=== PATIENT | female | born 1950 | race Caucasian/White ===

== ENCOUNTER 2016-05-31 18:48 | Inpatient (IN) | payer MEDICARE, OTHER ==
[~2016-05-31] VITALS: Ht 165.1 cm; Wt 114.9 kg
[2016-05-31] VITALS (7 sets, daily range): BP systolic 78–176; BP diastolic 47–80
[~2016-05-31 18:48] MED LIST: ALBU2.5V14 NEB; ALBU8.5H6 IH; ALEN70TA5 PO; ALPR0.5T10 PO; ALPR0.5T6 PO; AMLO5TAB2 PO; ASPI81TA2 PO; ATOR20TA58 PO; AZAT50TA PO; BIMA2.5D EACHEYE; CALC200T3 PO; CALC600T4 PO; CETI10CA PO; CETI10TA16 PO; CHOL10007 PO; CITA10TA8 PO; DOCU100C5 PO; DOCU100T5 PO; ERGO500012 PO; ESOM40CA PO; Enoxaparin Sodium SQ; FLUT100P MC; FLUT16SP NS; FLUT1DIS3 IH; GABA-586 PO; HYDR-2762 PO; IPRA0.2S5 IH; LEVO100T5 PO; LEVO125T5 PO; LEVO500T38 PO; MELA10TA2 PO; MELA3TAB PO; MONT10TA6 PO; MULT1CAP15 PO; OXYC10TA PO; OXYC10TA32 PO; PRED-220 PO; PRED5TAB19 PO; RANI300T PO; ROFL500T PO; ROPI0.5T2 PO; ROPI1TAB2 PO; VENTOLIN HFA18 GM IH
[2016-05-31] MEDS ORDERED: IPRATRPIUM/ALBUTEROL 0.5/2.5MG 3 ML NEBU. ONE (19:04)
[2016-05-31] MEDS ORDERED: DIPHENHYDRAMINE 50 MG/ML VIAL. IVP PRN (19:15)
[2016-05-31] MEDS ORDERED: FENTANYL PF 100 MCG/2 ML VIAL. IV PRN (19:15)
[2016-05-31] MEDS ORDERED: PIP/TAZO PER PHARMACY MC PRN (19:15)
[2016-05-31] MEDS ORDERED: DEXTROSE 50% 25 GM / 50ML DISP.SYRIN. IV PRN (19:15)
[2016-05-31 19:16] LABS: BASO % 0 % (0-3); EOS % 0 % (0-3); HEMATOCRIT 44.4 % (36.0-47.0); LYMPH # 0.3 x10^3/uL (1.0-4.8); LYMPH % 2 % (24-48); MEAN CORPUSCULAR HEMOGLOBIN 31 pg (25-35); MEAN CORPUSCULAR HGB CONC 31 g/dL (31-37); MEAN CORPUSCULAR VOLUME 99 fL (79-100); MONO % 2 % (0-9); NEUT % 96 % (31-73); PLATELET COUNT 260 x10^3/uL (140-400); RED BLOOD COUNT 4.48 x10^6/uL (3.50-5.40); RED CELL DISTRIBUTION WIDTH 14.7 % (11.5-14.5); WHITE BLOOD COUNT 18.1 x10^3/uL (4.0-11.0)
[2016-05-31 19:20] LABS: BILIRUBIN,URINE NEGATIVE (NEG); GLUCOSE,URINE 100 mg/dL (NEG); NITRITE,URINE NEGATIVE (NEG); PROTEIN,URINE >=300 mg/dL (NEG-TRACE); UROBILINOGEN,URINE 0.2 mg/dL (0.2 mg/dL)
[2016-05-31] MEDS ORDERED: PROPOFOL 50 ML IV ONE (19:28)
[2016-05-31] MEDS ORDERED: methylPREDNISolone SOD SUCC PF 125 MG/2 ML VIAL. IV ONE (19:30)
[2016-05-31] MEDS ORDERED: IPRATRPIUM/ALBUTEROL 0.5/2.5MG 3 ML NEBU. NEB ONE (19:30)
[2016-05-31] MEDS ORDERED: SUCCINYLCHOLINE 200 MG/10 ML VIAL. IV ONE (19:30)
[2016-05-31] MEDS ORDERED: ETOMIDATE 20 MG/10 ML VIAL. IV ONE (19:30)
[2016-05-31] MEDS: PROPOFOL 100 ML IV PRN ×2 (19:30→22:57)
[2016-05-31 19:32] LABS: BACTERIA,URINE FEW /HPF (0-FEW); SQUAMOUS EPITHELIAL CELL,UR MOD /LPF; WBC,URINE 0 /HPF (0-4)
[2016-05-31 19:34] LABS: CALCIUM 8.7 mg/dL (8.5-10.1); CREATININE 0.7 mg/dL (0.6-1.0); GFR 84.5; POTASSIUM 4.5 mmol/L (3.5-5.1)
[2016-05-31] MEDS: PIPERACILLIN/TAZOBACTAM 4.5 GM in IV NORMAL SALINE 100ML 100 ML IV SCH (19:42)
[2016-05-31 19:45] LABS: ALBUMIN 3.7 g/dL (3.4-5.0); ALBUMIN/GLOBULIN RATIO 0.8 (1.0-1.7); TOTAL BILIRUBIN 0.7 mg/dL (0.2-1.0); TOTAL PROTEIN 8.6 g/dL (6.4-8.2)
[2016-05-31 19:45] LABS: BARBITURATES NEG (NEG); BENZODIAZEPINES POS (NEG); CANNABINOIDS NEG (NEG); COCAINE NEG (NEG); ETHANOL, URINE NEG (NEG); METHADONE NEG (NEG); OPIATES POS (NEG); PHENCYCLIDINE NEG (NEG)
[2016-05-31 19:49] LABS: PLT ESTIMATE ADEQUATE (ADEQUATE)
[2016-05-31] MEDS ORDERED: DOCUSATE SODIUM 100 MG CAPSULE. PO PRN (20:00)
--- NOTE | 2016-05-31 20:16 | PHYS DOC ---
Past Medical History Past Medical History: Arthritis, COPD, Diabetes-Type II, Hypertension, Other Additional Past Medical Histor: PULMONARY FIBROSIS, morbidly obese Past Surgical History: Appendectomy, Cervical Fusion, Cholecystectomy, Hip Replacement, Hysterectomy, Tonsillectomy, Other Additional Past Surgical Histo: LUNG BIOPSY Alcohol Use: None Drug Use: None Adult General Chief Complaint Chief Complaint: DYSPNEA/RESPIRATOY DISTRESS HPI HPI 65-year-old female with history of end-stage COPD presents with respiratory distress. Apparently patient's home CPAP is not been working. Patient became altered and was struggling to breathe at home so EMS was called. On EMS arrival her oxygen saturations were in the 60s. There is been no report of fever chills or sweats. She has had a cough that is been nonproductive. [] Review of Systems Review of Systems Review of systems is unobtainable secondary to critical illness Current Medications Current Medications Current Medications Medications (Trade) Dose Ordered Sig/Al Start Time Stop Time Status Last Admin Dose Admin Albuterol/ Ipratropium (Duoneb) 3 ml STK-MED ONCE 05/31/16 19:04 05/31/16 19:05 DC Dextrose (Dextrose 50%-Water Syringe) 12.5 gm PRN Q15MIN PRN 05/31/16 19:15 Diphenhydramine HCl (Benadryl) 25 mg PRN Q15MIN PRN 05/31/16 19:15 Fentanyl Citrate (Fentanyl 2ml Vial) 50 mcg PRN Q1HR PRN 05/31/16 19:15 Lorazepam 1 mg 1 mg PRN Q1HR PRN 05/31/16 19:15 Piperacillin Sod/ Tazobactam Sod (Zosyn Per Pharmacy) 1 each PRN DAILY PRN 05/31/16 19:15 Propofol (Diprivan) 100 ml @ 0 mls/hr CONT PRN 05/31/16 19:15 Allergies Allergies Allergies Coded Allergies Type Severity Reaction Last Updated Verified No Known Drug Allergies 03/15/15 No Physical Exam Physical Exam Constitutional: Well developed, well nourished, acutely ill in severe respiratory distress. [] HENT: Normocephalic, atraumatic, bilateral external ears normal, oropharynx moist, no oral exudates, nose normal. [] Eyes: PERRLA, EOMI, conjunctiva normal, no discharge. [] Neck: Normal range of motion, no tenderness, supple, no stridor. [] Cardiovascular:Heart rate regular rhythm, no murmur [] Lungs & Thorax: Poor breath sounds bilaterally sats 83% on nonrebreather [] Abdomen: Bowel sounds normal, soft, no tenderness, no masses, no pulsatile masses. [] Skin: Warm, dry, no erythema, no rash. [] Back: No tenderness, no CVA tenderness. [] Extremities: No tenderness, no cyanosis, no clubbing, ROM intact, no edema. [] Neurologic: Obtunded. [] Psychologic: Unable to assess. [] Current Patient Data Vital Signs Vital Signs Date Time Temp Pulse Resp B/P Pulse Ox O2 Delivery O2 Flow Rate FiO2 05/31/16 19:03 98.8 97 16 154/83 98 Ventilator 98.8 Lab Values Laboratory Tests Test 05/31/16 18:50 05/31/16 19:10 White Blood Count 18.1x10^3/uL (4.0-11.0) H Red Blood Count 4.48x10^6/uL (3.50-5.40) Hemoglobin 14.0g/dL (12.0-15.5) Hematocrit 44.4% (36.0-47.0) Mean Corpuscular Volume 99fL (79-100) Mean Corpuscular Hemoglobin 31pg (25-35) Mean Corpuscular Hemoglobin Concent 31g/dL (31-37) Red Cell Distribution Width 14.7% (11.5-14.5) H Platelet Count 260x10^3/uL (140-400) Neutrophils (%) (Auto) 96% (31-73) H Lymphocytes (%) (Auto) 2% (24-48) L Monocytes (%) (Auto) 2% (0-9) Eosinophils (%) (Auto) 0% (0-3) Basophils (%) (Auto) 0% (0-3) Neutrophils # (Auto) 17.3x10^3uL (1.8-7.7) H Lymphocytes # (Auto) 0.3x10^3/uL (1.0-4.8) L Monocytes # (Auto) 0.4x10^3/uL (0.0-1.1) Eosinophils # (Auto) 0.0x10^3/uL (0.0-0.7) Basophils # (Auto) 0.0x10^3/uL (0.0-0.2) Segmented Neutrophils % 89% (35-66) H Band Neutrophils % 2% (0-9) Lymphocytes % 3% (24-48) L Atypical Lymphocytes % (Manual) 1% (0-0) H Monocytes % 5% (0-10) Platelet Estimate Adequate (ADEQUATE) Sodium Level 141mmol/L (136-145) Potassium Level 4.5mmol/L (3.5-5.1) Chloride Level 99mmol/L (98-107) Carbon Dioxide Level 38mmol/L (21-32) H Anion Gap 4 (6-14) L Blood Urea Nitrogen 17mg/dL (7-20) Creatinine 0.7mg/dL (0.6-1.0) Estimated GFR (Cockcroft-Gault) 84.5 BUN/Creatinine Ratio 24 (6-20) H Glucose Level 168mg/dL (70-99) H Lactic Acid Level 1.4mmol/L (0.4-2.0) Calcium Level 8.7mg/dL (8.5-10.1) Total Bilirubin 0.7mg/dL (0.2-1.0) Aspartate Amino Transferase (AST) 21U/L (15-37) Alanine Aminotransferase (ALT) 11U/L (14-59) L Alkaline Phosphatase 99U/L (46-116) Troponin I Quantitative < 0.017ng/mL (0.000-0.055) UJ-Ayy-E-Type Natriuretic Peptide 204pg/mL (0-124) H Total Protein 8.6g/dL (6.4-8.2) H Albumin 3.7g/dL (3.4-5.0) Albumin/Globulin Ratio 0.8 (1.0-1.7) L Urine Collection Type Unknown Urine Color Yellow Urine Clarity Cloudy Urine pH 6.0 Urine Specific [place] 1.025 Urine Protein >=300mg/dL (NEG-TRACE) Urine Glucose (UA) 100mg/dL (NEG) Urine Ketones (Stick) Negativemg/dL (NEG) Urine Blood Large (NEG) Urine Nitrite Negative (NEG) Urine Bilirubin Negative (NEG) Urine Urobilinogen Dipstick 0.2mg/dL (0.2 mg/dL) Urine Leukocyte Esterase Negative (NEG) Urine RBC 6-10/HPF (0-2) Urine WBC 0/HPF (0-4) Urine Squamous Epithelial Cells Mod/LPF Urine Bacteria Few/HPF (0-FEW) Urine Hyaline Casts Few/HPF Urine Mucus Mod/LPF Urine Opiates Screen Pos (NEG) Urine Methadone Screen Neg (NEG) Urine Barbiturates Neg (NEG) Urine Phencyclidine Screen Neg (NEG) Urine Amphetamine/Methamphetamine Neg (NEG) Urine Benzodiazepines Screen Pos (NEG) Urine Cocaine Screen Neg (NEG) Urine Cannabinoids Screen Neg (NEG) Urine Ethyl Alcohol Neg (NEG) Laboratory Tests 05/31/16 18:50 Laboratory Tests 05/31/16 18:50 EKG EKG [EKG: Normal sinus rhythm poor limb lead voltage no obvious ST changes consistent with ischemia rate of 90] Radiology/Procedures Radiology/Procedures [] Impressions: Chest x-ray: Slightly rotated ET tube is above the lelia no obvious infiltrates as interpreted by me Course & Med Decision Making Course & Med Decision Making Pertinent Labs and Imaging studies reviewed. (See chart for details) [Procedure: Rapid sequence intubation Consent: Obtained from her Patient was given 20 mg of etomidate followed by 100 mg of succinyl choline with excellent sedation. Then using a 4 Christiano blade the vocal cords were directly visualized and a 7.5 ET tube was passed to 23 cm at the lips without difficulty. Balloon was inflated stylette was removed and there was good color change with the CO2 detector. Patient tolerated the procedure well placed on the ventilator. CRITICAL CARE time was 30 minutes - time exclusive of any procedures performed. Care included medical management, x-ray/lab interpretation, discussions with the patient and their family as well as appropriate medical consultants.] Dragon Disclaimer Dragon Disclaimer This electronic medical record was generated, in whole or in part, using a voice recognition dictation system. Departure Departure Impression: Primary Impression: Acute and chronic respiratory failure ([id number]) Disposition: 09 ADMITTED INPATIENT Admitting Physician: Bibi Andre Condition: GUARDED Referrals: PAWAN LOWERY MD (PCP) Problem Qualifiers Primary Impression: Acute and chronic respiratory failure ([id number]) Respiratory failure complication: hypoxia and hypercapnia Qualified Code: J96.21 - Acute and chronic respiratory failure with hypoxia GARRY BROWN DO May 31, 2016 20:16
[2016-05-31] MEDS ORDERED: IV NORMAL SALINE 1000ML BAG 1,000 ML IV SCH ×2 (21:00→21:30)
--- NOTE | 2016-05-31 21:04 | ACF ---
Admission Forms Criteria RESPIRATORY FAILURE [facility] Clinical Indications for Admission to Inpatient Care (Place 'X' for any and all applicable criteria): Hospital admission is needed for appropriate care of the patient because of acute respiratory failure or insufficiency as indicated by ANY ONE of the following(1)(2)(3)(4)(5)(6)(7)(8): [X]I. Mechanical ventilation needed (acute invasive or noninvasive) [ ]II. Severe ventilation deficit as indicated by ANY ONE of the following (9) [ ]a) Respiratory acidosis (pH less than 7.32 and partial pressure of carbon dioxide greater than 40 mm Hg (5.3 kPa)) [ ]b) Partial pressure of carbon dioxide greater than 44 mm Hg (5.9 kPa ) (new) [ ]c) Airflow measurements less than 25% of predicted (eg, peak expiratory flow rate less than 100 L/minute) [ ]d) Forced vital capacity less than 15 mL/kg of ideal body weight, or 50% decrease in vital capacity from baseline [ ]III. Noncardiac pulmonary edema not resolving with rapid emergency treatment (8) [ ]IV. Severe respiratory distress as indicated by ANY ONE of the following: [ ]a) Severe tachypnea (respiratory rate greater than 30, greater than 45 for 6-month-old, greater than 60 for ) [ ]b) Severe hypoxemia (partial pressure of oxygen less than 50 mm Hg ( 6.7 kPa) on greater than 50% oxygen or partial pressure of oxygen to FIO2 ratio less than 200) [ ]c) Mental status deterioration from respiratory disease [ ]V. Airway obstruction or inadequate protection [A](10)(11) The original [employer] content created by [employer] has been revised. The portions of the content which have been revised are identified through the use of italic text or in bold, and [employer] has neither reviewed nor approved the modified material. All other unmodified content is copyright [employer]. Please see references footnoted in the original [employer] edition 2016 Admission Criteria Met?: Yes ELLIE PÉREZ May 31, 2016 21:04
--- NOTE | 2016-05-31 21:20 | EKG ---
[facility] [address] [place] [address] Test Date: 2016-05-31 Test Time: 21:19:47 Pat Name: MARGAUX CHERRY Department: Room: [facility] Gender: F Delivery Clerk: KIRAN : 1950 Requested By: GARRY BROWN Order Number: [id number] Reading MD: Polo Fan Measurements Intervals [place] Rate: 87 P: 66 CO: 176 QRS: 82 QRSD: 66 T: 83 QT: 334 QTc: 402 Interpretive Statements SINUS RHYTHM POSSIBLE PRIOR KRISTA-SEPTAL INFARCT Electronically Signed On 06-15-2016 14:33:56 CDT by Polo Fan
[2016-05-31] MEDS: IV NORMAL SALINE 1000ML BAG 1,000 ML IV SCH ×2 (21:43→22:56)
[2016-05-31 22:03] LABS: BODY TEMP ABG 99.3 DEG; FIO2 ABG 100; HCO3 ABG 28 mmol/L (21-28); PCO2 ABG 53 mmHg (35-46); PH ABG 7.34 (7.35-7.45); PO2 ABG 370 mmHg (65-108); SAT O2 ABG 100 % (92-99)
[2016-05-31 22:04] LABS: CORRECTED PCO2 ABG 54 mmHg; CORRECTED PH ABG 7.34; CORRECTED PO2 ABG 372 mmHg
[2016-05-31] MEDS: CHLORHEXIDINE 0.12% 15 ML MOUTHWASH. MM SCH (22:11)
[2016-05-31] MEDS: rOPINIRole 1 MG TABLET. PO SCH (22:11)
[2016-05-31] MEDS: ATORVASTATIN CALCIUM 20 MG TABLET PO SCH (22:11)
[2016-05-31] MEDS: FAMOTIDINE 20 MG/2 ML VIAL IVP SCH (22:11)
[2016-05-31] MEDS: FENTANYL PF 100 MCG/2 ML VIAL. IV PRN (22:56)
--- NOTE | 2016-05-31 23:29 | RAD ---
INDICATION: Enteric tube placement COMPARISON: None IMPRESSION: Single frontal view of a portion of the abdomen obtained. There is an enteric tube with tip in left upper quadrant of abdomen in the expected region of the stomach. There is some mildly dilated air-filled loop of small bowel in the right mid abdomen measuring up to 26 millimeters. Electronically signed by: Evens Gruber (May 31, 2016 23:28:05)
[2016-06-01] VITALS (24 sets, daily range): BP systolic 116–185; BP diastolic 67–90
[2016-06-01] MEDS: PIPERACILLIN/TAZOBACTAM 4.5 GM in IV NORMAL SALINE 100ML 100 ML IV SCH ×5 (00:18→23:26)
[2016-06-01] MEDS: IV NORMAL SALINE 1000ML BAG 1,000 ML IV SCH ×4 (00:49→14:11)
[2016-06-01 05:55] LABS: BASO % 0 % (0-3); EOS % 0 % (0-3); HEMOGLOBIN 12.4 g/dL (12.0-15.5); LYMPH # 0.3 x10^3/uL (1.0-4.8); LYMPH % 3 % (24-48); MEAN CORPUSCULAR HEMOGLOBIN 31 pg (25-35); MEAN CORPUSCULAR HGB CONC 33 g/dL (31-37); MEAN CORPUSCULAR VOLUME 96 fL (79-100); MONO % 1 % (0-9); NEUT % 96 % (31-73); PLATELET COUNT 191 x10^3/uL (140-400); RED BLOOD COUNT 3.97 x10^6/uL (3.50-5.40); RED CELL DISTRIBUTION WIDTH 14.1 % (11.5-14.5)
[2016-06-01 06:08] LABS: CREATININE 1.1 mg/dL (0.6-1.0); GFR 50.2; POTASSIUM 4.2 mmol/L (3.5-5.1)
--- NOTE | 2016-06-01 06:14 | EKG ---
[facility] [address] [place] [address] Test Date: 2016-05-31 Test Time: 19:51:04 Pat Name: MARGAUX CHERRY Department: Room: [facility] Gender: F [employer] Operator: : 1950 Requested By: RENU HARDY Order Number: [id number] Reading MD: Polo Fan Measurements Intervals [place] Rate: 89 P: 66 ND: 164 QRS: 86 QRSD: 68 T: 87 QT: 320 QTc: 390 Interpretive Statements SINUS RHYTHM Electronically Signed On 06-15-2016 14:32:49 CDT by Polo Fan
--- NOTE | 2016-06-01 07:22 | RAD ---
Portable chest, 06/10/2016, 8:08 PM: History: Intubation Comparison is made to a study from 02/24/2016. The patient is rotated to the right. An ET tube is in place with its tip located 6 cm above the lelia. The heart size and pulmonary vascularity are normal. The pulmonary markings are mildly prominent compatible with scarring. No acute infiltrate is seen. There is no evidence of pleural fluid or pneumothorax. Postsurgical changes are evident in the lower cervical spine IMPRESSION: 1. Interval insertion of an ET tube in satisfactory position. 2. Mild parenchymal scarring.
[2016-06-01] MEDS: INSULIN ASPART 300 UNITS/3 ML INSULN.PEN SQ SCH ×3 (08:00→16:55)
[2016-06-01] MEDS: AMLODIPINE BESYLATE 5 MG TABLET. PO SCH (08:24)
[2016-06-01] MEDS: FAMOTIDINE 20 MG/2 ML VIAL IVP SCH ×2 (08:24→21:20)
[2016-06-01] MEDS: CHLORHEXIDINE 0.12% 15 ML MOUTHWASH. MM SCH ×2 (08:25→21:20)
[2016-06-01] MEDS: ENOXAPARIN 40 MG/0.4 ML SYRINGE. SQ SCH ×2 (08:25→21:20)
[2016-06-01] MEDS: rOPINIRole 1 MG TABLET. PO SCH ×2 (08:25→21:19)
[2016-06-01] MEDS: ASPIRIN CHEWABLE 81 MG TABLET. PO SCH (08:25)
[2016-06-01] MEDS: ROFLUMILAST 500 MCG TABLET. PO SCH (08:26)
[2016-06-01 08:53] LABS: HCO3 ABG 27 mmol/L (21-28); PCO2 ABG 49 mmHg (35-46); PH ABG 7.36 (7.35-7.45); PO2 ABG 259 mmHg (65-108); SAT O2 ABG 99 % (92-99)
[2016-06-01 08:56] LABS: FIO2 ABG 60
--- NOTE | 2016-06-01 09:04 | RAD ---
Portable chest, 06/01/2016: History: Respiratory failure Comparison is made to yesterday's study. The ET tube has its tip located well above the lelia. An NG tube has been inserted extending into the stomach, although its tip is not visible. The heart size and pulmonary vascularity are normal. No pulmonary infiltrates are seen. There is no evidence of pleural fluid. IMPRESSION: 1. The ET tube and NG tube are in satisfactory positions. 2. No acute cardiopulmonary abnormality is detected.
[2016-06-01] MEDS: LEVOTHYROXINE SODIUM 50 MCG in IV NORMAL SALINE 50ML 5 ML IVP SCH (09:26)
[2016-06-01] MEDS: PROPOFOL 100 ML IV PRN ×3 (09:30→23:27)
[2016-06-01] MEDS ORDERED: FUROSEMIDE 20 MG/2 ML VIAL. IVP ONE (10:00)
--- NOTE | 2016-06-01 10:28 | PDOC2 ---
CONSULT Date of Consult Date of Consult DATE: 06/01/16 TIME: 10:23 Reason for Consult Reason for Consult: LEONID Referring Physician Referring Physician: ANTONY Identification/Chief Complaint Chief Complaint SOB Source Source: Chart review History of Present Illness Reason for Visit: THIS IS A 65 YR OLD ADMITTED WITH SOB. SHE IS NOTED TO HAVE SUDDEN SOB AND IS DX WITH EXACERBATION OF HER COPD. HER CR WAS 0.7 ON ADMIT AND NOW 1.1 AND ANURIA. NO NEPHROTOXINS WERE NOTED. SHE HAS NOT BEEN EATING WELL FOR ABOUT 24 HRS. CXRAY IS NEG FOR ANY WATER IN HER LUNGS. NO CKD NOTED. NO HYPOTENSIVE EPISODES Past Medical History Cardiovascular: CAD, HTN, Hyperlipidemia Pulmonary: COPD GI: GERD Psych: Depression, Panic Rheumatologic: Rheumatoid arthritis Endocrine: Diabetes, Hypothyroidism Past Surgical History Past Surgical History: Appendectomy, Cholecystectomy, Total hip replacement, Hysterectomy, Other Family History Family History: Heart Disease, Hypertension Social History ALCOHOL: none Drugs: None Current Problem List Problem List Problems Medical Problems: (1) Acute and chronic respiratory failure ([id number]) Status: Acute Current Medications Current Medications Current Medications Albuterol/ Ipratropium (Duoneb) 3 ml STK-MED ONCE .ROUTE ; Start 05/31/16 at 19: 04; Stop 05/31/16 at 19:05; Status DC Albuterol/ Ipratropium (Duoneb) 6 ml 1X ONCE NEB Last administered on 19:05; Start 05/31/16 at 19:30; Stop 05/31/16 at 19:31; Status DC Methylprednisolone Sodium Succinate (Solu-Medrol 125mg Vial) 125 mg 1X ONCE IV Last administered on 05/31/16 19:59; Start 05/31/16 at 19:30; Stop 05/31/16 at 19:31; Status DC Piperacillin Sod/ Tazobactam Sod (Zosyn Per Pharmacy) 1 each PRN DAILY PRN MC SEE COMMENTS; Start 05/31/16 at 19:15 Etomidate (Amidate) 20 mg 1X ONCE IV Last administered on 05/31/16 18:57; Start 05/31/16 at 19:30; Stop 05/31/16 at 19:31; Status DC Succinylcholine Chloride 100 mg 100 mg 1X ONCE IV Last administered on 18:57; Start 05/31/16 at 19:30; Stop 05/31/16 at 19:31; Status DC Piperacillin Sod/ Tazobactam Sod/ Sodium Chloride (Zosyn/Iv Sodium Chloride 0.9 % 100ml) 100 ml @ 200 mls/hr Q6HRS IV Last administered on 06/01/16 05:50; Start 05/31/16 at 19:30 Lorazepam 1 mg 1 mg PRN Q1HR PRN IV COMM; Start 05/31/16 at 19:15 Propofol (Diprivan) 100 ml @ 0 mls/hr CONT PRN IV PER PROTOCOL Last administered on 06/01/16 09:30; Start 05/31/16 at 19:15 Fentanyl Citrate (Fentanyl 2ml Vial) 25 mcg PRN Q1HR PRN IV COMM; Start at 19:15 Fentanyl Citrate (Fentanyl 2ml Vial) 50 mcg PRN Q1HR PRN IV COMM Last administered on 05/31/16 22:56; Start 05/31/16 at 19:15 Chlorhexidine Gluconate (Peridex) 15 ml BID MM Last administered on 06/01/16 08:25; Start 05/31/16 at 21:00 Famotidine (Pepcid) 20 mg BID IVP Last administered on 06/01/16 08:24; Start 05/31/16 at 21:00 Diphenhydramine HCl (Benadryl) 25 mg PRN Q15MIN PRN IVP EPS Symptoms; Start 05/31/16 at 19:15 Insulin Aspart (Novolog) 0-7 UNITS TIDWMEALS SQ ; Start 06/01/16 at 08:00 Dextrose 12.5 gm 12.5 gm PRN Q15MIN PRN IV SEE COMMENTS; Start 05/31/16 at 19:15 Propofol (Diprivan) 50 ml @ As Directed STK-MED ONCE IV ; Start 05/31/16 at 19:28 ; Stop 05/31/16 at 19:29; Status DC Enoxaparin Sodium (Lovenox 40mg Syringe) 40 mg Q12HR SQ Last administered on 08:25; Start 06/01/16 at 09:00 Amlodipine Besylate (Norvasc) 5 mg DAILY PO Last administered on 06/01/16 08: 24; Start 06/01/16 at 09:00 Aspirin (Children'S Aspirin) 81 mg DAILY PO Last administered on 06/01/16 08: 25; Start 06/01/16 at 09:00 Atorvastatin Calcium (Lipitor) 20 mg HS PO Last administered on 05/31/16 22:11 ; Start 05/31/16 at 21:00 Docusate Sodium (Colace) 100 mg PRN BID PRN PO CONSTIPATION; Start 05/31/16 at 20:00 Ergocalciferol (Vitamin D2) 50,000 unit Patel@09 PO ; Start 06/07/16 at 09:00 Roflumilast (Daliresp) 500 mcg DAILY PO Last administered on 06/01/16 08:26; Start 06/01/16 at 09:00 Ropinirole HCl 1 mg 1 mg BID PO Last administered on 06/01/16 08:25; Start 05/31/16 at 21:00 Levothyroxine Sodium 50 mcg/ Sodium Chloride 5 ml @ 100 mls/hr DAILY IVP Last administered on 06/01/16 09:26; Start 06/01/16 at 09:00 Sodium Chloride 1,000 ml @ 100 mls/hr Q10H IV Last administered on 05/31/16 21 :02; Start 05/31/16 at 21:00; Stop 05/31/16 at 21:27; Status DC Sodium Chloride 1,000 ml @ 3,270 mls/hr Q19M IV ; Start 05/31/16 at 21:30; Stop 05/31/16 at 21:30; Status DC Sodium Chloride 1,000 ml @ 1,000 mls/hr Q1H IV Last administered on 06/01/16 02:13; Start 05/31/16 at 21:30; Stop 06/01/16 at 00:45; Status DC Sodium Chloride (Iv Sodium Chloride 0.9% 1000ml Bag) 1,000 ml @ 100 mls/hr Q10H IV Last administered on 06/01/16 02:51; Start 06/01/16 at 02:45 Furosemide (Lasix) 80 mg 1X ONCE IVP Last administered on 06/01/16 09:51; Start 06/01/16 at 10:00; Stop 06/01/16 at 10:01; Status DC Active Scripts Active Reported Ropinirole Hcl 1 Mg Tablet 1 Mg PO BID Daliresp (Roflumilast) 500 Mcg Tablet 500 Mcg PO DAILY Albuterol Sulfate Conc Neb Soln (Albuterol Sulfate) 2.5 Mg/0.5 Ml Vial.neb 2.5 Mg NEB QID Singulair Tablet (Montelukast Sodium) 10 Mg Tablet 10 Mg PO HS Ranitidine Hcl 300 Mg Tablet 300 Mg PO BID Tums (Calcium Carbonate) 200 Mg Tab.chew 400 Mg PO PRN Q6HRS PRN Vitamin D2 (Ergocalciferol (Vitamin D2)) 50,000 Unit Capsule 50,000 Unit PO QSU Zyrtec (Cetirizine Hcl) 10 Mg Capsule 10 Mg PO DAILY Multivitamins (Multivitamin) 1 Each Capsule 1 Each PO DAILY Lumigan (Bimatoprost) 2.5 Ml Drops 1 Drop EACHEYE QHS Melatonin 3 Mg Tablet 10 Mg PO QHS Atorvastatin Calcium 20 Mg Tablet 20 Mg PO HS Amlodipine Besylate 5 Mg Tablet 1 Tab PO DAILY Levothyroxine Sodium 100 Mcg Tablet 100 Mcg PO DAILY06 Fluticasone Propionate Nasal Gunlock (Fluticasone Propionate) 16 Gm Gunlock.susp 2 Gunlock NS BID Azathioprine 50 Mg Tablet 50 Mg PO HS Docusate Sodium 100 Mg Capsule 100 Mg PO PRN BID Alprazolam 0.5 Mg Tablet 0.5 Mg PO TID Gabapentin 300 Mg Capsule 300 Mg PO BID Albuterol Sulfate Hfa Inhaler (Albuterol Sulfate) 8.5 Gm Hfa.aer.ad 8.5 Gm IH PRN PRN Aspirin 81 Mg Tab.chew 81 Mg PO DAILY Hydrocodone-Apap 7.5-325 (Hydrocodone Bit/Acetaminophen) 1 Each Tablet 1-2 Each PO PRN QID PRN Celexa (Citalopram Hydrobromide) 10 Mg Tablet 20 Mg PO HS Azathioprine 50 Mg Tablet 100 Mg PO DAILY08 Alendronate Sodium 70 Mg Tablet 70 Mg PO QSU Allergies Allergies: Coded Allergies: No Known Drug Allergies (Unverified , 03/15/15) ROS Review of System UNABLE TO OBTAIN Physical Exam General: No acute distress HEENT: Atraumatic, Other (ET TUBE IN PLACE) Heart: Regular rate Abdomen: Normal bowel sounds Extremities: No clubbing Skin: No breakdown Neuro: Other (SEDATED) Psych/Mental Status: Other (SEDATED) MUSCULOSKELETAL: No deformity Vitals VITALS Vital Signs Date Time Temp Pulse Resp B/P Pulse Ox O2 Delivery O2 Flow Rate FiO2 06/01/16 10:21 80 16 155/90 100 Ventilator 06/01/16 07:15 99.4 99.4 Labs Labs Laboratory Tests Test 05/31/16 18:50 05/31/16 19:01 05/31/16 19:10 06/01/16 05:20 White Blood Count 18.1x10^3/uL (4.0-11.0) 9.0x10^3/uL (4.0-11.0) Red Blood Count 4.48x10^6/uL (3.50-5.40) 3.97x10^6/uL (3.50-5.40) Hemoglobin 14.0g/dL (12.0-15.5) 12.4g/dL (12.0-15.5) Hematocrit 44.4% (36.0-47.0) 38.0% (36.0-47.0) Mean Corpuscular Volume 99fL (79-100) 96fL (79-100) Mean Corpuscular Hemoglobin 31pg (25-35) 31pg (25-35) Mean Corpuscular Hemoglobin Concent 31g/dL (31-37) 33g/dL (31-37) Red Cell Distribution Width 14.7% (11.5-14.5) 14.1% (11.5-14.5) Platelet Count 260x10^3/uL (140-400) 191x10^3/uL (140-400) Neutrophils (%) (Auto) 96% (31-73) 96% (31-73) Lymphocytes (%) (Auto) 2% (24-48) 3% (24-48) Monocytes (%) (Auto) 2% (0-9) 1% (0-9) Eosinophils (%) (Auto) 0% (0-3) 0% (0-3) Basophils (%) (Auto) 0% (0-3) 0% (0-3) Neutrophils # (Auto) 17.3x10^3uL (1.8-7.7) 8.6x10^3uL (1.8-7.7) Lymphocytes # (Auto) 0.3x10^3/uL (1.0-4.8) 0.3x10^3/uL (1.0-4.8) Monocytes # (Auto) 0.4x10^3/uL (0.0-1.1) 0.1x10^3/uL (0.0-1.1) Eosinophils # (Auto) 0.0x10^3/uL (0.0-0.7) 0.0x10^3/uL (0.0-0.7) Basophils # (Auto) 0.0x10^3/uL (0.0-0.2) 0.0x10^3/uL (0.0-0.2) Segmented Neutrophils % 89% (35-66) Band Neutrophils % 2% (0-9) Lymphocytes % 3% (24-48) Atypical Lymphocytes % (Manual) 1% (0-0) Monocytes % 5% (0-10) Platelet Estimate Adequate (ADEQUATE) Sodium Level 141mmol/L (136-145) 142mmol/L (136-145) Potassium Level 4.5mmol/L (3.5-5.1) 4.2mmol/L (3.5-5.1) Chloride Level 99mmol/L (98-107) 106mmol/L (98-107) Carbon Dioxide Level 38mmol/L (21-32) 30mmol/L (21-32) Anion Gap 4 (6-14) 6 (6-14) Blood Urea Nitrogen 17mg/dL (7-20) 23mg/dL (7-20) Creatinine 0.7mg/dL (0.6-1.0) 1.1mg/dL (0.6-1.0) Estimated GFR (Cockcroft-Gault) 84.5 50.2 BUN/Creatinine Ratio 24 (6-20) Glucose Level 168mg/dL (70-99) 152mg/dL (70-99) Lactic Acid Level 1.4mmol/L (0.4-2.0) Calcium Level 8.7mg/dL (8.5-10.1) 7.0mg/dL (8.5-10.1) Total Bilirubin 0.7mg/dL (0.2-1.0) Aspartate Amino Transf (AST/SGOT) 21U/L (15-37) Alanine Aminotransferase (ALT/SGPT) 11U/L (14-59) Alkaline Phosphatase 99U/L (46-116) Troponin I Quantitative < 0.017ng/mL (0.000-0.055) FR-Fiu-M-Type Natriuretic Peptide 204pg/mL (0-124) Total Protein 8.6g/dL (6.4-8.2) Albumin 3.7g/dL (3.4-5.0) Albumin/Globulin Ratio 0.8 (1.0-1.7) O2 Saturation 100% (92-99) Arterial Blood pH 7.34 (7.35-7.45) Arterial Blood pH (Temp corrected) 7.34 Arterial Blood pCO2 at Patient Temp 53mmHg (35-46) Arterial Blood pCO2 (Temp correct) 54mmHg Arterial Blood pO2 at Patient Temp 370mmHg (65-108) Arterial Blood pO2 (Temp corrected) 372mmHg Arterial Blood HCO3 28mmol/L (21-28) Arterial Blood Base Excess 2mmol/L (-3-3) FiO2 100 Urine Collection Type Unknown Urine Color Yellow Urine Clarity Cloudy Urine pH 6.0 Urine Specific [place] 1.025 Urine Protein >=300mg/dL (NEG-TRACE) Urine Glucose (UA) 100mg/dL (NEG) Urine Ketones (Stick) Negativemg/dL (NEG) Urine Blood Large (NEG) Urine Nitrite Negative (NEG) Urine Bilirubin Negative (NEG) Urine Urobilinogen Dipstick 0.2mg/dL (0.2 mg/dL) Urine Leukocyte Esterase Negative (NEG) Urine RBC 6-10/HPF (0-2) Urine WBC 0/HPF (0-4) Urine Squamous Epithelial Cells Mod/LPF Urine Bacteria Few/HPF (0-FEW) Urine Hyaline Casts Few/HPF Urine Mucus Mod/LPF Urine Opiates Screen Pos (NEG) Urine Methadone Screen Neg (NEG) Urine Barbiturates Neg (NEG) Urine Phencyclidine Screen Neg (NEG) Urine Amphetamine/Methamphetamine Neg (NEG) Urine Benzodiazepines Screen Pos (NEG) Urine Cocaine Screen Neg (NEG) Urine Cannabinoids Screen Neg (NEG) Urine Ethyl Alcohol Neg (NEG) Test 06/01/16 08:23 06/01/16 08:35 Glucose (Fingerstick) 145mg/dL (70-99) O2 Saturation 99% (92-99) Arterial Blood pH 7.36 (7.35-7.45) Arterial Blood pCO2 at Patient Temp 49mmHg (35-46) Arterial Blood pO2 at Patient Temp 259mmHg (65-108) Arterial Blood HCO3 27mmol/L (21-28) Arterial Blood Base Excess 1mmol/L (-3-3) FiO2 60 Laboratory Tests Test 05/31/16 18:50 05/31/16 19:01 05/31/16 19:10 06/01/16 05:20 White Blood Count 18.1x10^3/uL (4.0-11.0) 9.0x10^3/uL (4.0-11.0) Red Blood Count 4.48x10^6/uL (3.50-5.40) 3.97x10^6/uL (3.50-5.40) Hemoglobin 14.0g/dL (12.0-15.5) 12.4g/dL (12.0-15.5) Hematocrit 44.4% (36.0-47.0) 38.0% (36.0-47.0) Mean Corpuscular Volume 99fL (79-100) 96fL (79-100) Mean Corpuscular Hemoglobin 31pg (25-35) 31pg (25-35) Mean Corpuscular Hemoglobin Concent 31g/dL (31-37) 33g/dL (31-37) Red Cell Distribution Width 14.7% (11.5-14.5) 14.1% (11.5-14.5) Platelet Count 260x10^3/uL (140-400) 191x10^3/uL (140-400) Neutrophils (%) (Auto) 96% (31-73) 96% (31-73) Lymphocytes (%) (Auto) 2% (24-48) 3% (24-48) Monocytes (%) (Auto) 2% (0-9) 1% (0-9) Eosinophils (%) (Auto) 0% (0-3) 0% (0-3) Basophils (%) (Auto) 0% (0-3) 0% (0-3) Neutrophils # (Auto) 17.3x10^3uL (1.8-7.7) 8.6x10^3uL (1.8-7.7) Lymphocytes # (Auto) 0.3x10^3/uL (1.0-4.8) 0.3x10^3/uL (1.0-4.8) Monocytes # (Auto) 0.4x10^3/uL (0.0-1.1) 0.1x10^3/uL (0.0-1.1) Eosinophils # (Auto) 0.0x10^3/uL (0.0-0.7) 0.0x10^3/uL (0.0-0.7) Basophils # (Auto) 0.0x10^3/uL (0.0-0.2) 0.0x10^3/uL (0.0-0.2) Segmented Neutrophils % 89% (35-66) Band Neutrophils % 2% (0-9) Lymphocytes % 3% (24-48) Atypical Lymphocytes % (Manual) 1% (0-0) Monocytes % 5% (0-10) Platelet Estimate Adequate (ADEQUATE) Sodium Level 141mmol/L (136-145) 142mmol/L (136-145) Potassium Level 4.5mmol/L (3.5-5.1) 4.2mmol/L (3.5-5.1) Chloride Level 99mmol/L (98-107) 106mmol/L (98-107) Carbon Dioxide Level 38mmol/L (21-32) 30mmol/L (21-32) Anion Gap 4 (6-14) 6 (6-14) Blood Urea Nitrogen 17mg/dL (7-20) 23mg/dL (7-20) Creatinine 0.7mg/dL (0.6-1.0) 1.1mg/dL (0.6-1.0) Estimated GFR (Cockcroft-Gault) 84.5 50.2 BUN/Creatinine Ratio 24 (6-20) Glucose Level 168mg/dL (70-99) 152mg/dL (70-99) Lactic Acid Level 1.4mmol/L (0.4-2.0) Calcium Level 8.7mg/dL (8.5-10.1) 7.0mg/dL (8.5-10.1) Total Bilirubin 0.7mg/dL (0.2-1.0) Aspartate Amino Transf (AST/SGOT) 21U/L (15-37) Alanine Aminotransferase (ALT/SGPT) 11U/L (14-59) Alkaline Phosphatase 99U/L (46-116) Troponin I Quantitative < 0.017ng/mL (0.000-0.055) YQ-Dwr-Q-Type Natriuretic Peptide 204pg/mL (0-124) Total Protein 8.6g/dL (6.4-8.2) Albumin 3.7g/dL (3.4-5.0) Albumin/Globulin Ratio 0.8 (1.0-1.7) O2 Saturation 100% (92-99) Arterial Blood pH 7.34 (7.35-7.45) Arterial Blood pH (Temp corrected) 7.34 Arterial Blood pCO2 at Patient Temp 53mmHg (35-46) Arterial Blood pCO2 (Temp correct) 54mmHg Arterial Blood pO2 at Patient Temp 370mmHg (65-108) Arterial Blood pO2 (Temp corrected) 372mmHg Arterial Blood HCO3 28mmol/L (21-28) Arterial Blood Base Excess 2mmol/L (-3-3) FiO2 100 Urine Collection Type Unknown Urine Color Yellow Urine Clarity Cloudy Urine pH 6.0 Urine Specific [place] 1.025 Urine Protein >=300mg/dL (NEG-TRACE) Urine Glucose (UA) 100mg/dL (NEG) Urine Ketones (Stick) Negativemg/dL (NEG) Urine Blood Large (NEG) Urine Nitrite Negative (NEG) Urine Bilirubin Negative (NEG) Urine Urobilinogen Dipstick 0.2mg/dL (0.2 mg/dL) Urine Leukocyte Esterase Negative (NEG) Urine RBC 6-10/HPF (0-2) Urine WBC 0/HPF (0-4) Urine Squamous Epithelial Cells Mod/LPF Urine Bacteria Few/HPF (0-FEW) Urine Hyaline Casts Few/HPF Urine Mucus Mod/LPF Urine Opiates Screen Pos (NEG) Urine Methadone Screen Neg (NEG) Urine Barbiturates Neg (NEG) Urine Phencyclidine Screen Neg (NEG) Urine Amphetamine/Methamphetamine Neg (NEG) Urine Benzodiazepines Screen Pos (NEG) Urine Cocaine Screen Neg (NEG) Urine Cannabinoids Screen Neg (NEG) Urine Ethyl Alcohol Neg (NEG) Test 4/10/17 08:23 06/01/16 08:35 Glucose (Fingerstick) 145mg/dL (70-99) O2 Saturation 99% (92-99) Arterial Blood pH 7.36 (7.35-7.45) Arterial Blood pCO2 at Patient Temp 49mmHg (35-46) Arterial Blood pO2 at Patient Temp 259mmHg (65-108) Arterial Blood HCO3 27mmol/L (21-28) Arterial Blood Base Excess 1mmol/L (-3-3) FiO2 60 Assessment/Plan Assessment/Plan IMP AECOPD RESP FAILURE LEONID WITH ANURIA PLAN VENT SUPPORT CONT WITH IVF'S IV LASIX - ATTEMPT TO FORCE DIURESE WILL FOLLOW UPDATED AT BEDSIDE LEE SOUZA MD Jun 01, 2016 10:28
--- NOTE | 2016-06-01 11:52 | HP ---
ADMIT DATE: 06/01/2016 CHIEF COMPLAINT: Respiratory failure. HISTORY OF PRESENT ILLNESS: The patient is a 65-year-old massively obese woman with end-stage COPD, who presented to the Emergency Room in hypoxic respiratory distress requiring intubation. Her at bedside is relating a history that she had had difficulties breathing over the past week, she does have a CPAP machine at home, was using that as well as nasal cannula oxygen and despite all the support, she became severely hypoxic into the 60s suddenly yesterday. Her therefore called EMS and the patient was brought to the Emergency Room. denies any fevers or chills, but does have dry cough, which is chronic. No other signs of infection. PAST MEDICAL HISTORY: COPD, diabetes type 2, hypertension, pulmonary fibrosis, morbid obesity, arthritis. PAST SURGICAL HISTORY: Appendectomy, tonsillectomy, cholecystectomy, hysterectomy and hip replacement. SOCIAL HISTORY: Lives with her . No ongoing toxic habits. FAMILY HISTORY: Noncontributory to respiratory illness currently. ALLERGIES: No known drug allergies. MEDICATIONS: MAR reconciled with home medications. REVIEW OF SYSTEMS: Unable to obtain as the patient is intubated. PHYSICAL EXAMINATION: VITAL SIGNS: Show a blood pressure of 140/85, heart rate of 73, respiratory rate of 16. She is afebrile. GENERAL: This is a massively obese 65-year-old woman, intubated, mildly sedated. HEENT: Shows no scleral icterus. NECK: Thick. LUNGS: Fairly clear anteriorly. HEART: Has regular rate and rhythm. ABDOMEN: Obese. Organs could not be palpated. EXTREMITIES: Showed 2+ edema in feet and distal lower extremities. SKIN: Warm, soft and dry without any rash. LABORATORY DATA: CBC from today shows a WBC of 9.0, improved from 18 yesterday. Hemoglobin at 12.4, MCV at 96, platelets at 191, neutrophils at 96%. Chemistries with a BUN and creatinine of 23 and 1.1, slightly up from yesterday at 17 and 0.7. Electrolytes within normal limits. Glucose at 142. LFTs at admission within normal limits. Urine shows a protein of greater than 300. Tox screen positive for opiates and benzos. IMAGING: Chest x-ray in the Emergency Room showed ET placement. Heart size and pulmonary vascularity within normal limits. Pulmonary markings are mildly prominent compared with scarring, no infiltrates seen. ASSESSMENT AND PLAN: The patient is a 65-year-old woman with chronic obstructive pulmonary disease and pulmonary fibrosis who presented with acute respiratory failure, probably chronic obstructive pulmonary disease exacerbation. She has been started on antibiotics for potential infection given elevated WBC, although chest x-ray does not confirm pneumonia. Pulmonology has been consulted. Case has been discussed with Dr. Damico. Plan extubation later today. Diabetes mellitus is fairly well controlled. We will monitor with insulin sliding scale. We will continue Synthroid for hypothyroidism as well. Obtain TSH to assess adequacy of medication. We will continue all other home medications except for azathioprine, need for medication is unclear at this time. We will investigate. The patient has been started on Lovenox for prophylaxis as well as H2 estella. PADDY MODI MD DR: UR/nts JOB#: [id number] / [id number] PAWAN Bishop MD MTDD
[2016-06-01 12:05] LABS: HCO3 ABG 30 mmol/L (21-28); PO2 ABG 70 mmHg (65-108); SAT O2 ABG 90 % (92-99)
[2016-06-01 12:09] LABS: FIO2 ABG 40; PCO2 ABG 79 mmHg (35-46)
--- NOTE | 2016-06-01 15:05 | PDOC ---
PULMONARY PROGRESS NOTES Vitals Vital Signs Date Time Temp Pulse Resp B/P Pulse Ox O2 Delivery O2 Flow Rate FiO2 06/01/16 14:30 98 Ventilator 06/01/16 14:00 86 16 142/71 06/01/16 12:19 100.1 100.1 06/01/16 11:10 10.0 General: Alert, No acute distress Lungs: Other Cardiovascular: S1, S2 Abdomen: Soft, Non-tender, Other Extremities: No Edema Labs Laboratory Tests Test 05/31/16 18:50 05/31/16 19:01 05/31/16 19:10 05/31/16 20:40 White Blood Count 18.1x10^3/uL (4.0-11.0) Red Blood Count 4.48x10^6/uL (3.50-5.40) Hemoglobin 14.0g/dL (12.0-15.5) Hematocrit 44.4% (36.0-47.0) Mean Corpuscular Volume 99fL (79-100) Mean Corpuscular Hemoglobin 31pg (25-35) Mean Corpuscular Hemoglobin Concent 31g/dL (31-37) Red Cell Distribution Width 14.7% (11.5-14.5) Platelet Count 260x10^3/uL (140-400) Neutrophils (%) (Auto) 96% (31-73) Lymphocytes (%) (Auto) 2% (24-48) Monocytes (%) (Auto) 2% (0-9) Eosinophils (%) (Auto) 0% (0-3) Basophils (%) (Auto) 0% (0-3) Neutrophils # (Auto) 17.3x10^3uL (1.8-7.7) Lymphocytes # (Auto) 0.3x10^3/uL (1.0-4.8) Monocytes # (Auto) 0.4x10^3/uL (0.0-1.1) Eosinophils # (Auto) 0.0x10^3/uL (0.0-0.7) Basophils # (Auto) 0.0x10^3/uL (0.0-0.2) Segmented Neutrophils % 89% (35-66) Band Neutrophils % 2% (0-9) Lymphocytes % 3% (24-48) Atypical Lymphocytes % (Manual) 1% (0-0) Monocytes % 5% (0-10) Platelet Estimate Adequate (ADEQUATE) Sodium Level 141mmol/L (136-145) Potassium Level 4.5mmol/L (3.5-5.1) Chloride Level 99mmol/L (98-107) Carbon Dioxide Level 38mmol/L (21-32) Anion Gap 4 (6-14) Blood Urea Nitrogen 17mg/dL (7-20) Creatinine 0.7mg/dL (0.6-1.0) Estimated GFR (Cockcroft-Gault) 84.5 BUN/Creatinine Ratio 24 (6-20) Glucose Level 168mg/dL (70-99) Lactic Acid Level 1.4mmol/L (0.4-2.0) Calcium Level 8.7mg/dL (8.5-10.1) Total Bilirubin 0.7mg/dL (0.2-1.0) Aspartate Amino Transf (AST/SGOT) 21U/L (15-37) Alanine Aminotransferase (ALT/SGPT) 11U/L (14-59) Alkaline Phosphatase 99U/L (46-116) Troponin I Quantitative < 0.017ng/mL (0.000-0.055) [id number]-[id number]-I-Type Natriuretic Peptide 204pg/mL (0-124) Total Protein 8.6g/dL (6.4-8.2) Albumin 3.7g/dL (3.4-5.0) Albumin/Globulin Ratio 0.8 (1.0-1.7) O2 Saturation 100% (92-99) Arterial Blood pH 7.34 (7.35-7.45) Arterial Blood pH (Temp corrected) 7.34 Arterial Blood pCO2 at Patient Temp 53mmHg (35-46) Arterial Blood pCO2 (Temp correct) 54mmHg Arterial Blood pO2 at Patient Temp 370mmHg (65-108) Arterial Blood pO2 (Temp corrected) 372mmHg Arterial Blood HCO3 28mmol/L (21-28) Arterial Blood Base Excess 2mmol/L (-3-3) FiO2 100 Urine Collection Type Unknown Urine Color Yellow Urine Clarity Cloudy Urine pH 6.0 Urine Specific [place] 1.025 Urine Protein >=300mg/dL (NEG-TRACE) Urine Glucose (UA) 100mg/dL (NEG) Urine Ketones (Stick) Negativemg/dL (NEG) Urine Blood Large (NEG) Urine Nitrite Negative (NEG) Urine Bilirubin Negative (NEG) Urine Urobilinogen Dipstick 0.2mg/dL (0.2 mg/dL) Urine Leukocyte Esterase Negative (NEG) Urine RBC 6-10/HPF (0-2) Urine WBC 0/HPF (0-4) Urine Squamous Epithelial Cells Mod/LPF Urine Bacteria Few/HPF (0-FEW) Urine Hyaline Casts Few/HPF Urine Mucus Mod/LPF Urine Opiates Screen Pos (NEG) Urine Methadone Screen Neg (NEG) Urine Barbiturates Neg (NEG) Urine Phencyclidine Screen Neg (NEG) Urine Amphetamine/Methamphetamine Neg (NEG) Urine Benzodiazepines Screen Pos (NEG) Urine Cocaine Screen Neg (NEG) Urine Cannabinoids Screen Neg (NEG) Urine Ethyl Alcohol Neg (NEG) Nasal Screen MRSA (PCR) Positive (Negative) Test 06/01/16 05:20 06/01/16 08:23 06/01/16 08:35 06/01/16 11:40 White Blood Count 9.0x10^3/uL (4.0-11.0) Red Blood Count 3.97x10^6/uL (3.50-5.40) Hemoglobin 12.4g/dL (12.0-15.5) Hematocrit 38.0% (36.0-47.0) Mean Corpuscular Volume 96fL (79-100) Mean Corpuscular Hemoglobin 31pg (25-35) Mean Corpuscular Hemoglobin Concent 33g/dL (31-37) Red Cell Distribution Width 14.1% (11.5-14.5) Platelet Count 191x10^3/uL (140-400) Neutrophils (%) (Auto) 96% (31-73) Lymphocytes (%) (Auto) 3% (24-48) Monocytes (%) (Auto) 1% (0-9) Eosinophils (%) (Auto) 0% (0-3) Basophils (%) (Auto) 0% (0-3) Neutrophils # (Auto) 8.6x10^3uL (1.8-7.7) Lymphocytes # (Auto) 0.3x10^3/uL (1.0-4.8) Monocytes # (Auto) 0.1x10^3/uL (0.0-1.1) Eosinophils # (Auto) 0.0x10^3/uL (0.0-0.7) Basophils # (Auto) 0.0x10^3/uL (0.0-0.2) Sodium Level 142mmol/L (136-145) Potassium Level 4.2mmol/L (3.5-5.1) Chloride Level 106mmol/L (98-107) Carbon Dioxide Level 30mmol/L (21-32) Anion Gap 6 (6-14) Blood Urea Nitrogen 23mg/dL (7-20) Creatinine 1.1mg/dL (0.6-1.0) Estimated GFR (Cockcroft-Gault) 50.2 Glucose Level 152mg/dL (70-99) Calcium Level 7.0mg/dL (8.5-10.1) Glucose (Fingerstick) 145mg/dL (70-99) O2 Saturation 99% (92-99) 90% (92-99) Arterial Blood pH 7.36 (7.35-7.45) 7.20 (7.35-7.45) Arterial Blood pCO2 at Patient Temp 49mmHg (35-46) 79mmHg (35-46) Arterial Blood pO2 at Patient Temp 259mmHg (65-108) 70mmHg (65-108) Arterial Blood HCO3 27mmol/L (21-28) 30mmol/L (21-28) Arterial Blood Base Excess 1mmol/L (-3-3) -1mmol/L (-3-3) FiO2 60 40 Test 06/01/16 12:17 Glucose (Fingerstick) 142mg/dL (70-99) Laboratory Tests Test 05/31/16 18:50 05/31/16 19:01 05/31/16 19:10 05/31/16 20:40 White Blood Count 18.1x10^3/uL (4.0-11.0) Red Blood Count 4.48x10^6/uL (3.50-5.40) Hemoglobin 14.0g/dL (12.0-15.5) Hematocrit 44.4% (36.0-47.0) Mean Corpuscular Volume 99fL (79-100) Mean Corpuscular Hemoglobin 31pg (25-35) Mean Corpuscular Hemoglobin Concent 31g/dL (31-37) Red Cell Distribution Width 14.7% (11.5-14.5) Platelet Count 260x10^3/uL (140-400) Neutrophils (%) (Auto) 96% (31-73) Lymphocytes (%) (Auto) 2% (24-48) Monocytes (%) (Auto) 2% (0-9) Eosinophils (%) (Auto) 0% (0-3) Basophils (%) (Auto) 0% (0-3) Neutrophils # (Auto) 17.3x10^3uL (1.8-7.7) Lymphocytes # (Auto) 0.3x10^3/uL (1.0-4.8) Monocytes # (Auto) 0.4x10^3/uL (0.0-1.1) Eosinophils # (Auto) 0.0x10^3/uL (0.0-0.7) Basophils # (Auto) 0.0x10^3/uL (0.0-0.2) Segmented Neutrophils % 89% (35-66) Band Neutrophils % 2% (0-9) Lymphocytes % 3% (24-48) Atypical Lymphocytes % (Manual) 1% (0-0) Monocytes % 5% (0-10) Platelet Estimate Adequate (ADEQUATE) Sodium Level 141mmol/L (136-145) Potassium Level 4.5mmol/L (3.5-5.1) Chloride Level 99mmol/L (98-107) Carbon Dioxide Level 38mmol/L (21-32) Anion Gap 4 (6-14) Blood Urea Nitrogen 17mg/dL (7-20) Creatinine 0.7mg/dL (0.6-1.0) Estimated GFR (Cockcroft-Gault) 84.5 BUN/Creatinine Ratio 24 (6-20) Glucose Level 168mg/dL (70-99) Lactic Acid Level 1.4mmol/L (0.4-2.0) Calcium Level 8.7mg/dL (8.5-10.1) Total Bilirubin 0.7mg/dL (0.2-1.0) Aspartate Amino Transf (AST/SGOT) 21U/L (15-37) Alanine Aminotransferase (ALT/SGPT) 11U/L (14-59) Alkaline Phosphatase 99U/L (46-116) Troponin I Quantitative < 0.017ng/mL (0.000-0.055) VO-Bvn-U-Type Natriuretic Peptide 204pg/mL (0-124) Total Protein 8.6g/dL (6.4-8.2) Albumin 3.7g/dL (3.4-5.0) Albumin/Globulin Ratio 0.8 (1.0-1.7) O2 Saturation 100% (92-99) Arterial Blood pH 7.34 (7.35-7.45) Arterial Blood pH (Temp corrected) 7.34 Arterial Blood pCO2 at Patient Temp 53mmHg (35-46) Arterial Blood pCO2 (Temp correct) 54mmHg Arterial Blood pO2 at Patient Temp 370mmHg (65-108) Arterial Blood pO2 (Temp corrected) 372mmHg Arterial Blood HCO3 28mmol/L (21-28) Arterial Blood Base Excess 2mmol/L (-3-3) FiO2 100 Urine Collection Type Unknown Urine Color Yellow Urine Clarity Cloudy Urine pH 6.0 Urine Specific [place] 1.025 Urine Protein >=300mg/dL (NEG-TRACE) Urine Glucose (UA) 100mg/dL (NEG) Urine Ketones (Stick) Negativemg/dL (NEG) Urine Blood Large (NEG) Urine Nitrite Negative (NEG) Urine Bilirubin Negative (NEG) Urine Urobilinogen Dipstick 0.2mg/dL (0.2 mg/dL) Urine Leukocyte Esterase Negative (NEG) Urine RBC 6-10/HPF (0-2) Urine WBC 0/HPF (0-4) Urine Squamous Epithelial Cells Mod/LPF Urine Bacteria Few/HPF (0-FEW) Urine Hyaline Casts Few/HPF Urine Mucus Mod/LPF Urine Opiates Screen Pos (NEG) Urine Methadone Screen Neg (NEG) Urine Barbiturates Neg (NEG) Urine Phencyclidine Screen Neg (NEG) Urine Amphetamine/Methamphetamine Neg (NEG) Urine Benzodiazepines Screen Pos (NEG) Urine Cocaine Screen Neg (NEG) Urine Cannabinoids Screen Neg (NEG) Urine Ethyl Alcohol Neg (NEG) Nasal Screen MRSA (PCR) Positive (Negative) Test 06/01/16 05:20 06/01/16 08:23 06/01/16 08:35 06/01/16 11:40 White Blood Count 9.0x10^3/uL (4.0-11.0) Red Blood Count 3.97x10^6/uL (3.50-5.40) Hemoglobin 12.4g/dL (12.0-15.5) Hematocrit 38.0% (36.0-47.0) Mean Corpuscular Volume 96fL (79-100) Mean Corpuscular Hemoglobin 31pg (25-35) Mean Corpuscular Hemoglobin Concent 33g/dL (31-37) Red Cell Distribution Width 14.1% (11.5-14.5) Platelet Count 191x10^3/uL (140-400) Neutrophils (%) (Auto) 96% (31-73) Lymphocytes (%) (Auto) 3% (24-48) Monocytes (%) (Auto) 1% (0-9) Eosinophils (%) (Auto) 0% (0-3) Basophils (%) (Auto) 0% (0-3) Neutrophils # (Auto) 8.6x10^3uL (1.8-7.7) Lymphocytes # (Auto) 0.3x10^3/uL (1.0-4.8) Monocytes # (Auto) 0.1x10^3/uL (0.0-1.1) Eosinophils # (Auto) 0.0x10^3/uL (0.0-0.7) Basophils # (Auto) 0.0x10^3/uL (0.0-0.2) Sodium Level 142mmol/L (136-145) Potassium Level 4.2mmol/L (3.5-5.1) Chloride Level 106mmol/L (98-107) Carbon Dioxide Level 30mmol/L (21-32) Anion Gap 6 (6-14) Blood Urea Nitrogen 23mg/dL (7-20) Creatinine 1.1mg/dL (0.6-1.0) Estimated GFR (Cockcroft-Gault) 50.2 Glucose Level 152mg/dL (70-99) Calcium Level 7.0mg/dL (8.5-10.1) Glucose (Fingerstick) 145mg/dL (70-99) O2 Saturation 99% (92-99) 90% (92-99) Arterial Blood pH 7.36 (7.35-7.45) 7.20 (7.35-7.45) Arterial Blood pCO2 at Patient Temp 49mmHg (35-46) 79mmHg (35-46) Arterial Blood pO2 at Patient Temp 259mmHg (65-108) 70mmHg (65-108) Arterial Blood HCO3 27mmol/L (21-28) 30mmol/L (21-28) Arterial Blood Base Excess 1mmol/L (-3-3) -1mmol/L (-3-3) FiO2 60 40 Test 06/01/16 12:17 Glucose (Fingerstick) 142mg/dL (70-99) Medications Active Scripts Medications Dose Route/Sig Days Date Category Ropinirole Hcl 1 Mg Tablet 1 Mg PO BID 02/24/16 Reported Daliresp (Roflumilast) 500 Mcg Tablet 500 Mcg PO DAILY 11/16/14 Reported Albuterol Sulfate Conc Neb Soln (Albuterol Sulfate) 2.5 Mg/0.5 Ml Vial.neb 2.5 Mg NEB QID 11/16/14 Reported Singulair Tablet (Montelukast Sodium) 10 Mg Tablet 10 Mg PO HS 11/16/14 Reported Ranitidine Hcl 300 Mg Tablet 300 Mg PO BID 11/16/14 Reported Tums (Calcium Carbonate) 200 Mg Tab.chew 400 Mg PO PRN Q6HRS PRN 11/16/14 Reported Vitamin D2 (Ergocalciferol (Vitamin D2)) 50,000 Unit Capsule 50,000 Unit PO QSU 11/16/14 Reported Zyrtec (Cetirizine Hcl) 10 Mg Capsule 10 Mg PO DAILY 04/21/14 Reported Multivitamins (Multivitamin) 1 Each Capsule 1 Each PO DAILY 04/21/14 Reported Lumigan (Bimatoprost) 2.5 Ml Drops 1 Drop EACHEYE QHS 04/21/14 Reported Melatonin 3 Mg Tablet 10 Mg PO QHS 04/21/14 Reported Atorvastatin Calcium 20 Mg Tablet 20 Mg PO HS 04/21/14 Reported Amlodipine Besylate 5 Mg Tablet 1 Tab PO DAILY 04/21/14 Reported Levothyroxine Sodium 100 Mcg Tablet 100 Mcg PO DAILY06 04/21/14 Reported Fluticasone Propionate Nasal [place] (Fluticasone Propionate) 16 Gm [place].susp 2 [place] NS BID 04/21/14 Reported Azathioprine 50 Mg Tablet 50 Mg PO HS 04/21/14 Reported Docusate Sodium 100 Mg Capsule 100 Mg PO PRN BID 05/03/13 Reported Alprazolam 0.5 Mg Tablet 0.5 Mg PO TID 05/03/13 Reported Gabapentin 300 Mg Capsule 300 Mg PO BID 05/03/13 Reported Albuterol Sulfate Hfa Inhaler (Albuterol Sulfate) 8.5 Gm Hfa.aer.ad 8.5 Gm IH PRN PRN 05/03/13 Reported Aspirin 81 Mg Tab.chew 81 Mg PO DAILY 05/03/13 Reported Hydrocodone-Apap 7.5-325 (Hydrocodone Bit/Acetaminophen) 1 Each Tablet 1-2 Each PO PRN QID PRN 05/03/13 Reported Celexa (Citalopram Hydrobromide) 10 Mg Tablet 20 Mg PO HS 05/03/13 Reported Azathioprine 50 Mg Tablet 100 Mg PO DAILY08 05/03/13 Reported Alendronate Sodium 70 Mg Tablet 70 Mg PO QSU 05/03/13 Reported Impression . [id number] resp failure multifactorial see orders thanks TINY MCFADDEN MD Jun 01, 2016 15:05
[2016-06-01] MEDS: ATORVASTATIN CALCIUM 20 MG TABLET PO SCH (21:19)
[2016-06-02] VITALS (21 sets, daily range): BP systolic 85–166; BP diastolic 53–82
--- NOTE | 2016-06-02 00:02 | CONS ---
DATE OF CONSULTATION: 06/01/2016 ATTENDING PHYSICIAN: Dr. Miguel. REASON FOR CONSULTATION: The patient is seen in pulmonary consultation at the request of Dr. Miguel for [id number] respiratory failure. HISTORY OF PRESENT ILLNESS: The patient is a well-known patient to me with chronic respiratory failure on home Trilogy. Her states that she was having increasing shortness of air over the last week or so, the patient declined to go and visit with her primary care doctor, eventually ended up in the Emergency Room. She had increasing respiratory distress, low saturations. She was intubated. I was asked to see her in consultation. No history given of fever, chills or night sweats; cough mostly nonproductive. PAST MEDICAL HISTORY: 1. Chronic respiratory failure, on home Trilogy. 2. Severe COPD with previous spontaneous pneumothoraces requiring endobronchial valve placement. 3. Type 2 diabetes. 4. Hypertension. 5. Interstitial lung disease. 6. Morbid obesity. 7. Arthritis. PAST SURGICAL HISTORY: Status post appendectomy, tonsillectomy, cholecystectomy, hysterectomy, and hip replacement. She has also had previous endobronchial stent placement. SOCIAL HISTORY: She currently lives with her . Quit tobacco many years ago. FAMILY HISTORY: No family history of lung disorders. ALLERGIES: No known drug allergies. CURRENT MEDICATION: List was reviewed. Please see the MRAD. PHYSICAL EXAMINATION: GENERAL: The patient was in the intensive care unit. VITAL SIGNS: Temperature max was 101. She was intubated, assist control ventilation. HEENT: Eyes, the sclerae were nonicteric. NECK: Jugular venous distention was not elevated. No lymphadenopathy. CHEST: Full expansion. LUNGS: Very poor air flow, no wheezes. CARDIOVASCULAR: Regular rate and rhythm with S1, S2, no S3. ABDOMEN: Soft, obese. EXTREMITIES: No clubbing or cyanosis. Minimal edema. NEUROLOGIC: The patient was sedated. LABORATORY DATA: Arterial blood gas revealed a pH of 7.36, PaCO2 of 49, PaO2 of 259. White count was elevated initially and decreased today. Electrolytes were noted. BUN and creatinine were elevated. Lactic acid level was not elevated. Troponin level was not elevated. Chest x-ray revealed no acute cardiopulmonary process. IMPRESSION: 1. Ylnob-[id number] respiratory failure. 2. Acute exacerbation of chronic obstructive pulmonary disease, suspect viral. 3. Fever. Check nasal swab. 4. Severe chronic obstructive pulmonary disease with previous pneumothoraces requiring endobronchial valve placement. 5. Interstitial lung disease. 6. Hypertension. 7. Type 2 diabetes. 8. Acute kidney injury with anuria. PLAN: 1. We will continue current mechanical support. ABG looks great this morning, we will proceed with possibility of spontaneous breathing trial. 2. Consult Nephrology. 3. We will continue IV steroids and empiric antibiotics to cover both gram-negative and gram-positive organisms. 4. De-escalate antibiotics as quickly as possible. 5. Continue home medications. 6. Deep venous thrombosis and gastrointestinal prophylaxis. I do appreciate the privilege in sharing in the patient's care. TINY MCFADDEN MD DR: ARACELIS/concepcion JOB#: [id number] / [id number]
[2016-06-02] MEDS: IV NORMAL SALINE 1000ML BAG 1,000 ML IV SCH ×2 (04:39→08:38)
[2016-06-02] MEDS: PROPOFOL 100 ML IV PRN ×4 (04:39→23:31)
[2016-06-02] MEDS: PIPERACILLIN/TAZOBACTAM 4.5 GM in IV NORMAL SALINE 100ML 100 ML IV SCH ×4 (05:39→23:31)
[2016-06-02 06:34] LABS: CALCIUM 6.8 mg/dL (8.5-10.1); CREATININE 1.8 mg/dL (0.6-1.0); GFR 28.4; POTASSIUM 3.6 mmol/L (3.5-5.1)
[2016-06-02] MEDS: IPRATRPIUM/ALBUTEROL 0.5/2.5MG 3 ML NEBU. NEB SCH ×4 (07:59→19:30)
[2016-06-02] MEDS: INSULIN ASPART 300 UNITS/3 ML INSULN.PEN SQ SCH ×3 (08:00→17:00)
[2016-06-02] MEDS: LEVOTHYROXINE SODIUM 50 MCG in IV NORMAL SALINE 50ML 5 ML IVP SCH (08:36)
[2016-06-02] MEDS: ENOXAPARIN 40 MG/0.4 ML SYRINGE. SQ SCH ×2 (08:36→20:57)
[2016-06-02] MEDS: rOPINIRole 1 MG TABLET. PO SCH ×2 (08:37→20:56)
[2016-06-02] MEDS: ROFLUMILAST 500 MCG TABLET. PO SCH (08:37)
[2016-06-02] MEDS: FAMOTIDINE 20 MG/2 ML VIAL IVP SCH ×2 (08:37→08:59)
[2016-06-02] MEDS: AMLODIPINE BESYLATE 5 MG TABLET. PO SCH (08:37)
[2016-06-02] MEDS: ASPIRIN CHEWABLE 81 MG TABLET. PO SCH (08:37)
[2016-06-02 08:38] LABS: HCO3 ABG 25 mmol/L (21-28); PCO2 ABG 43 mmHg (35-46); PH ABG 7.38 (7.35-7.45); PO2 ABG 125 mmHg (65-108); SAT O2 ABG 98 % (92-99)
[2016-06-02] MEDS: CHLORHEXIDINE 0.12% 15 ML MOUTHWASH. MM SCH ×2 (08:38→20:56)
[2016-06-02 09:10] LABS: FIO2 ABG 40
--- NOTE | 2016-06-02 10:38 | PDOC ---
Renal-Progress Notes Subjective Notes Notes INTUBATED History of Present Illness Hx of present illness STABLE Vitals Vitals Vital Signs Date Time Temp Pulse Resp B/P Pulse Ox O2 Delivery O2 Flow Rate FiO2 06/02/16 09:19 96 Ventilator 06/02/16 08:37 87 166/73 06/02/16 08:00 16 06/02/16 07:39 10.0 06/02/16 07:15 99.5 99.5 Weight Weight [ ] I.O. Intake and Output Intake and Output 06/02/16 06:59 Intake Total 5067 ml Output Total 1594 ml Balance 3473 ml Intake Oral 0 ml IV Total 3875 ml Other 1192 ml Output Urine Total 1144 ml Gastric Drainage Total 450 ml Labs Labs Laboratory Tests Test 06/01/16 11:40 06/01/16 12:17 06/01/16 16:55 06/02/16 05:42 O2 Saturation 90% (92-99) Arterial Blood pH 7.20 (7.35-7.45) Arterial Blood pCO2 at Patient Temp 79mmHg (35-46) Arterial Blood pO2 at Patient Temp 70mmHg (65-108) Arterial Blood HCO3 30mmol/L (21-28) Arterial Blood Base Excess -1mmol/L (-3-3) FiO2 40 Glucose (Fingerstick) 142mg/dL (70-99) 135mg/dL (70-99) Sodium Level 142mmol/L (136-145) Potassium Level 3.6mmol/L (3.5-5.1) Chloride Level 106mmol/L (98-107) Carbon Dioxide Level 27mmol/L (21-32) Anion Gap 9 (6-14) Blood Urea Nitrogen 40mg/dL (7-20) Creatinine 1.8mg/dL (0.6-1.0) Estimated GFR (Cockcroft-Gault) 28.4 Glucose Level 96mg/dL (70-99) Calcium Level 6.8mg/dL (8.5-10.1) Test 06/02/16 08:30 06/02/16 08:35 O2 Saturation 98% (92-99) Arterial Blood pH 7.38 (7.35-7.45) Arterial Blood pCO2 at Patient Temp 43mmHg (35-46) Arterial Blood pO2 at Patient Temp 125mmHg (65-108) Arterial Blood HCO3 25mmol/L (21-28) Arterial Blood Base Excess 0mmol/L (-3-3) FiO2 40 Glucose (Fingerstick) 90mg/dL (70-99) Micro Micro Microbiology 05/31/16 Blood Culture - Preliminary, Resulted NO GROWTH AFTER 1 DAY Review of Systems Constitutional: yes: no symptom reported Physical Exam General Appearance: no apparent distress Respiratory: decreased breath sounds Heart: S1S2 Extremities: atrophy Assessment Assessment IMP LEONID WORSE WITH CR UP TO 1.8 RESP FAILURE AECOPD PLAN CONT WITH IVF'S PPN FOR NOW PULM EVAL AND TX WILL FOLLOW LEE SOUZA MD Jun 02, 2016 10:38
[2016-06-02] MEDS ORDERED: AA 3%/ELECTROLYTE-TPN SOLN/GLY 1,000 ML IV SCH (10:45)
--- NOTE | 2016-06-02 11:04 | PDOC ---
PROGRESS NOTES Chief Complaint Chief Complaint Acute respir failure ASSESSMENT AND PLAN: 1. COPD exacerbation: failed vent wean. cont vent, management as per Dr Damico. steroids, nebs. on Zosyn for bronchitis; no infiltrates on CXR 2. Pulm fibrosis 3. DM: on ISS. no home meds; suspect borderline, unmasked by steroids. check HgbA1c 4. Hypothyroidism: on synthroid 5. HTN: well controlled on home norvasc 6. HLD: on statin 7. Prophylaxis: lovenox, H2B d/w , RN and RT Vitals Vitals Vital Signs Date Time Temp Pulse Resp B/P Pulse Ox O2 Delivery O2 Flow Rate FiO2 06/02/16 10:35 Ventilator 06/02/16 09:19 96 06/02/16 08:37 87 166/73 06/02/16 08:00 16 06/02/16 07:39 10.0 06/02/16 07:15 99.5 99.5 Physical Exam General: No acute distress Heart: Regular rate Lungs: Other Abdomen: Normal bowel sounds Extremities: No clubbing Skin: No breakdown Labs LABS Laboratory Tests Test 06/01/16 11:40 06/01/16 12:17 06/01/16 16:55 06/02/16 05:42 O2 Saturation 90% (92-99) Arterial Blood pH 7.20 (7.35-7.45) Arterial Blood pCO2 at Patient Temp 79mmHg (35-46) Arterial Blood pO2 at Patient Temp 70mmHg (65-108) Arterial Blood HCO3 30mmol/L (21-28) Arterial Blood Base Excess -1mmol/L (-3-3) FiO2 40 Glucose (Fingerstick) 142mg/dL (70-99) 135mg/dL (70-99) Sodium Level 142mmol/L (136-145) Potassium Level 3.6mmol/L (3.5-5.1) Chloride Level 106mmol/L (98-107) Carbon Dioxide Level 27mmol/L (21-32) Anion Gap 9 (6-14) Blood Urea Nitrogen 40mg/dL (7-20) Creatinine 1.8mg/dL (0.6-1.0) Estimated GFR (Cockcroft-Gault) 28.4 Glucose Level 96mg/dL (70-99) Calcium Level 6.8mg/dL (8.5-10.1) Test 06/02/16 08:30 06/02/16 08:35 O2 Saturation 98% (92-99) Arterial Blood pH 7.38 (7.35-7.45) Arterial Blood pCO2 at Patient Temp 43mmHg (35-46) Arterial Blood pO2 at Patient Temp 125mmHg (65-108) Arterial Blood HCO3 25mmol/L (21-28) Arterial Blood Base Excess 0mmol/L (-3-3) FiO2 40 Glucose (Fingerstick) 90mg/dL (70-99) Review of Systems Review of Systems intubated, sedated PADDY MODI MD Jun 02, 2016 11:04
--- NOTE | 2016-06-02 16:32 | PDOC ---
PULMONARY PROGRESS NOTES Subjective Pt sedated Vitals Vital Signs Date Time Temp Pulse Resp B/P Pulse Ox O2 Delivery O2 Flow Rate FiO2 06/02/16 16:26 Mechanical Ventilator 10.0 06/02/16 15:27 98 06/02/16 14:00 90 16 134/71 06/02/16 07:15 99.5 99.5 Lungs: Wheezing Cardiovascular: S1, S2 Abdomen: Soft, Non-tender, Other Extremities: No Edema Skin: Warm Labs Laboratory Tests Test 05/31/16 18:50 05/31/16 19:01 05/31/16 19:10 05/31/16 20:40 White Blood Count 18.1x10^3/uL (4.0-11.0) Red Blood Count 4.48x10^6/uL (3.50-5.40) Hemoglobin 14.0g/dL (12.0-15.5) Hematocrit 44.4% (36.0-47.0) Mean Corpuscular Volume 99fL (79-100) Mean Corpuscular Hemoglobin 31pg (25-35) Mean Corpuscular Hemoglobin Concent 31g/dL (31-37) Red Cell Distribution Width 14.7% (11.5-14.5) Platelet Count 260x10^3/uL (140-400) Neutrophils (%) (Auto) 96% (31-73) Lymphocytes (%) (Auto) 2% (24-48) Monocytes (%) (Auto) 2% (0-9) Eosinophils (%) (Auto) 0% (0-3) Basophils (%) (Auto) 0% (0-3) Neutrophils # (Auto) 17.3x10^3uL (1.8-7.7) Lymphocytes # (Auto) 0.3x10^3/uL (1.0-4.8) Monocytes # (Auto) 0.4x10^3/uL (0.0-1.1) Eosinophils # (Auto) 0.0x10^3/uL (0.0-0.7) Basophils # (Auto) 0.0x10^3/uL (0.0-0.2) Segmented Neutrophils % 89% (35-66) Band Neutrophils % 2% (0-9) Lymphocytes % 3% (24-48) Atypical Lymphocytes % (Manual) 1% (0-0) Monocytes % 5% (0-10) Platelet Estimate Adequate (ADEQUATE) Sodium Level 141mmol/L (136-145) Potassium Level 4.5mmol/L (3.5-5.1) Chloride Level 99mmol/L (98-107) Carbon Dioxide Level 38mmol/L (21-32) Anion Gap 4 (6-14) Blood Urea Nitrogen 17mg/dL (7-20) Creatinine 0.7mg/dL (0.6-1.0) Estimated GFR (Cockcroft-Gault) 84.5 BUN/Creatinine Ratio 24 (6-20) Glucose Level 168mg/dL (70-99) Lactic Acid Level 1.4mmol/L (0.4-2.0) Calcium Level 8.7mg/dL (8.5-10.1) Total Bilirubin 0.7mg/dL (0.2-1.0) Aspartate Amino Transf (AST/SGOT) 21U/L (15-37) Alanine Aminotransferase (ALT/SGPT) 11U/L (14-59) Alkaline Phosphatase 99U/L (46-116) Troponin I Quantitative < 0.017ng/mL (0.000-0.055) SY-Rtl-C-Type Natriuretic Peptide 204pg/mL (0-124) Total Protein 8.6g/dL (6.4-8.2) Albumin 3.7g/dL (3.4-5.0) Albumin/Globulin Ratio 0.8 (1.0-1.7) O2 Saturation 100% (92-99) Arterial Blood pH 7.34 (7.35-7.45) Arterial Blood pH (Temp corrected) 7.34 Arterial Blood pCO2 at Patient Temp 53mmHg (35-46) Arterial Blood pCO2 (Temp correct) 54mmHg Arterial Blood pO2 at Patient Temp 370mmHg (65-108) Arterial Blood pO2 (Temp corrected) 372mmHg Arterial Blood HCO3 28mmol/L (21-28) Arterial Blood Base Excess 2mmol/L (-3-3) FiO2 100 Urine Collection Type Unknown Urine Color Yellow Urine Clarity Cloudy Urine pH 6.0 Urine Specific [place] 1.025 Urine Protein >=300mg/dL (NEG-TRACE) Urine Glucose (UA) 100mg/dL (NEG) Urine Ketones (Stick) Negativemg/dL (NEG) Urine Blood Large (NEG) Urine Nitrite Negative (NEG) Urine Bilirubin Negative (NEG) Urine Urobilinogen Dipstick 0.2mg/dL (0.2 mg/dL) Urine Leukocyte Esterase Negative (NEG) Urine RBC 6-10/HPF (0-2) Urine WBC 0/HPF (0-4) Urine Squamous Epithelial Cells Mod/LPF Urine Bacteria Few/HPF (0-FEW) Urine Hyaline Casts Few/HPF Urine Mucus Mod/LPF Urine Opiates Screen Pos (NEG) Urine Methadone Screen Neg (NEG) Urine Barbiturates Neg (NEG) Urine Phencyclidine Screen Neg (NEG) Urine Amphetamine/Methamphetamine Neg (NEG) Urine Benzodiazepines Screen Pos (NEG) Urine Cocaine Screen Neg (NEG) Urine Cannabinoids Screen Neg (NEG) Urine Ethyl Alcohol Neg (NEG) Nasal Screen MRSA (PCR) Positive (Negative) Test 06/01/16 05:20 06/01/16 08:23 06/01/16 08:35 06/01/16 11:40 White Blood Count 9.0x10^3/uL (4.0-11.0) Red Blood Count 3.97x10^6/uL (3.50-5.40) Hemoglobin 12.4g/dL (12.0-15.5) Hematocrit 38.0% (36.0-47.0) Mean Corpuscular Volume 96fL (79-100) Mean Corpuscular Hemoglobin 31pg (25-35) Mean Corpuscular Hemoglobin Concent 33g/dL (31-37) Red Cell Distribution Width 14.1% (11.5-14.5) Platelet Count 191x10^3/uL (140-400) Neutrophils (%) (Auto) 96% (31-73) Lymphocytes (%) (Auto) 3% (24-48) Monocytes (%) (Auto) 1% (0-9) Eosinophils (%) (Auto) 0% (0-3) Basophils (%) (Auto) 0% (0-3) Neutrophils # (Auto) 8.6x10^3uL (1.8-7.7) Lymphocytes # (Auto) 0.3x10^3/uL (1.0-4.8) Monocytes # (Auto) 0.1x10^3/uL (0.0-1.1) Eosinophils # (Auto) 0.0x10^3/uL (0.0-0.7) Basophils # (Auto) 0.0x10^3/uL (0.0-0.2) Sodium Level 142mmol/L (136-145) Potassium Level 4.2mmol/L (3.5-5.1) Chloride Level 106mmol/L (98-107) Carbon Dioxide Level 30mmol/L (21-32) Anion Gap 6 (6-14) Blood Urea Nitrogen 23mg/dL (7-20) Creatinine 1.1mg/dL (0.6-1.0) Estimated GFR (Cockcroft-Gault) 50.2 Glucose Level 152mg/dL (70-99) Calcium Level 7.0mg/dL (8.5-10.1) Glucose (Fingerstick) 145mg/dL (70-99) O2 Saturation 99% (92-99) 90% (92-99) Arterial Blood pH 7.36 (7.35-7.45) 7.20 (7.35-7.45) Arterial Blood pCO2 at Patient Temp 49mmHg (35-46) 79mmHg (35-46) Arterial Blood pO2 at Patient Temp 259mmHg (65-108) 70mmHg (65-108) Arterial Blood HCO3 27mmol/L (21-28) 30mmol/L (21-28) Arterial Blood Base Excess 1mmol/L (-3-3) -1mmol/L (-3-3) FiO2 60 40 Test 06/01/16 12:17 06/01/16 16:55 06/02/16 05:42 06/02/16 08:30 Glucose (Fingerstick) 142mg/dL (70-99) 135mg/dL (70-99) Sodium Level 142mmol/L (136-145) Potassium Level 3.6mmol/L (3.5-5.1) Chloride Level 106mmol/L (98-107) Carbon Dioxide Level 27mmol/L (21-32) Anion Gap 9 (6-14) Blood Urea Nitrogen 40mg/dL (7-20) Creatinine 1.8mg/dL (0.6-1.0) Estimated GFR (Cockcroft-Gault) 28.4 Glucose Level 96mg/dL (70-99) Calcium Level 6.8mg/dL (8.5-10.1) O2 Saturation 98% (92-99) Arterial Blood pH 7.38 (7.35-7.45) Arterial Blood pCO2 at Patient Temp 43mmHg (35-46) Arterial Blood pO2 at Patient Temp 125mmHg (65-108) Arterial Blood HCO3 25mmol/L (21-28) Arterial Blood Base Excess 0mmol/L (-3-3) FiO2 40 Test 06/02/16 08:35 06/02/16 12:26 Glucose (Fingerstick) 90mg/dL (70-99) 106mg/dL (70-99) Laboratory Tests Test 06/01/16 16:55 06/02/16 05:42 06/02/16 08:30 06/02/16 08:35 Glucose (Fingerstick) 135mg/dL (70-99) 90mg/dL (70-99) Sodium Level 142mmol/L (136-145) Potassium Level 3.6mmol/L (3.5-5.1) Chloride Level 106mmol/L (98-107) Carbon Dioxide Level 27mmol/L (21-32) Anion Gap 9 (6-14) Blood Urea Nitrogen 40mg/dL (7-20) Creatinine 1.8mg/dL (0.6-1.0) Estimated GFR (Cockcroft-Gault) 28.4 Glucose Level 96mg/dL (70-99) Calcium Level 6.8mg/dL (8.5-10.1) O2 Saturation 98% (92-99) Arterial Blood pH 7.38 (7.35-7.45) Arterial Blood pCO2 at Patient Temp 43mmHg (35-46) Arterial Blood pO2 at Patient Temp 125mmHg (65-108) Arterial Blood HCO3 25mmol/L (21-28) Arterial Blood Base Excess 0mmol/L (-3-3) FiO2 40 Test 06/02/16 12:26 Glucose (Fingerstick) 106mg/dL (70-99) Medications Active Scripts Medications Dose Route/Sig Days Date Category Ropinirole Hcl 1 Mg Tablet 1 Mg PO BID 02/24/16 Reported Daliresp (Roflumilast) 500 Mcg Tablet 500 Mcg PO DAILY 11/16/14 Reported Albuterol Sulfate Conc Neb Soln (Albuterol Sulfate) 2.5 Mg/0.5 Ml Vial.neb 2.5 Mg NEB QID 11/16/14 Reported Singulair Tablet (Montelukast Sodium) 10 Mg Tablet 10 Mg PO HS 11/16/14 Reported Ranitidine Hcl 300 Mg Tablet 300 Mg PO BID 11/16/14 Reported Tums (Calcium Carbonate) 200 Mg Tab.chew 400 Mg PO PRN Q6HRS PRN 11/16/14 Reported Vitamin D2 (Ergocalciferol (Vitamin D2)) 50,000 Unit Capsule 50,000 Unit PO QSU 11/16/14 Reported Zyrtec (Cetirizine Hcl) 10 Mg Capsule 10 Mg PO DAILY 04/21/14 Reported Multivitamins (Multivitamin) 1 Each Capsule 1 Each PO DAILY 04/21/14 Reported Lumigan (Bimatoprost) 2.5 Ml Drops 1 Drop EACHEYE QHS 04/21/14 Reported Melatonin 3 Mg Tablet 10 Mg PO QHS 04/21/14 Reported Atorvastatin Calcium 20 Mg Tablet 20 Mg PO HS 04/21/14 Reported Amlodipine Besylate 5 Mg Tablet 1 Tab PO DAILY 04/21/14 Reported Levothyroxine Sodium 100 Mcg Tablet 100 Mcg PO DAILY06 04/21/14 Reported Fluticasone Propionate Nasal [place] (Fluticasone Propionate) 16 Gm [place].susp 2 [place] NS BID 04/21/14 Reported Azathioprine 50 Mg Tablet 50 Mg PO HS 04/21/14 Reported Docusate Sodium 100 Mg Capsule 100 Mg PO PRN BID 05/03/13 Reported Alprazolam 0.5 Mg Tablet 0.5 Mg PO TID 05/03/13 Reported Gabapentin 300 Mg Capsule 300 Mg PO BID 05/03/13 Reported Albuterol Sulfate Hfa Inhaler (Albuterol Sulfate) 8.5 Gm Hfa.aer.ad 8.5 Gm IH PRN PRN 05/03/13 Reported Aspirin 81 Mg Tab.chew 81 Mg PO DAILY 05/03/13 Reported Hydrocodone-Apap 7.5-325 (Hydrocodone Bit/Acetaminophen) 1 Each Tablet 1-2 Each PO PRN QID PRN 05/03/13 Reported Celexa (Citalopram Hydrobromide) 10 Mg Tablet 20 Mg PO HS 05/03/13 Reported Azathioprine 50 Mg Tablet 100 Mg PO DAILY08 05/03/13 Reported Alendronate Sodium 70 Mg Tablet 70 Mg PO QSU 05/03/13 Reported Impression . 1. Cgrvl-st-zuosgve respiratory failure. 2. Acute exacerbation of chronic obstructive pulmonary disease, suspect viral. 3. Fever. 4. Severe chronic obstructive pulmonary disease with previous pneumothoraces requiring endobronchial valve placement. 5. Interstitial lung disease. 6. Hypertension. 7. Type 2 diabetes. 8. Acute kidney injury with anuria. Plan . attempted trial not ready for extubation 1. We will continue current mechanical support. 2. Consult Nephrology. 3. We will continue IV steroids and empiric antibiotics to cover both gram-negative and gram-positive organisms. 4. De-escalate antibiotics as quickly as possible. 5. Continue home medications. 6. Deep venous thrombosis and gastrointestinal prophylaxis. TINY MCFADDEN MD Jun 02, 2016 16:32
[2016-06-02] MEDS: ATORVASTATIN CALCIUM 20 MG TABLET PO SCH (20:56)
[2016-06-03] VITALS (24 sets, daily range): BP systolic 100–183; BP diastolic 57–91
[2016-06-03] MEDS: IV NORMAL SALINE 1000ML BAG 1,000 ML IV SCH ×2 (01:27→14:45)
[2016-06-03] MEDS: PROPOFOL 100 ML IV PRN ×5 (02:20→22:05)
[2016-06-03] MEDS: PIPERACILLIN/TAZOBACTAM 4.5 GM in IV NORMAL SALINE 100ML 100 ML IV SCH ×3 (05:42→17:43)
[2016-06-03 05:55] LABS: BASO % 0 % (0-3); EOS % 1 % (0-3); HEMATOCRIT 33.3 % (36.0-47.0); HEMOGLOBIN 11.3 g/dL (12.0-15.5); LYMPH # 0.7 x10^3/uL (1.0-4.8); LYMPH % 8 % (24-48); MEAN CORPUSCULAR HEMOGLOBIN 32 pg (25-35); MEAN CORPUSCULAR HGB CONC 34 g/dL (31-37); MEAN CORPUSCULAR VOLUME 96 fL (79-100); MONO % 9 % (0-9); NEUT % 81 % (31-73); PLATELET COUNT 140 x10^3/uL (140-400); RED BLOOD COUNT 3.49 x10^6/uL (3.50-5.40); RED CELL DISTRIBUTION WIDTH 14.6 % (11.5-14.5); WHITE BLOOD COUNT 7.9 x10^3/uL (4.0-11.0)
[2016-06-03 06:18] LABS: CALCIUM 6.8 mg/dL (8.5-10.1); CREATININE 1.5 mg/dL (0.6-1.0); GFR 35.1; POTASSIUM 3.4 mmol/L (3.5-5.1)
[2016-06-03] MEDS: IPRATRPIUM/ALBUTEROL 0.5/2.5MG 3 ML NEBU. NEB SCH ×4 (07:29→20:04)
[2016-06-03] MEDS: ROFLUMILAST 500 MCG TABLET. PO SCH (07:38)
[2016-06-03] MEDS: ASPIRIN CHEWABLE 81 MG TABLET. PO SCH (07:38)
[2016-06-03] MEDS: rOPINIRole 1 MG TABLET. PO SCH ×2 (07:39→21:00)
[2016-06-03] MEDS: ENOXAPARIN 40 MG/0.4 ML SYRINGE. SQ SCH ×2 (07:39→21:00)
[2016-06-03] MEDS: AMLODIPINE BESYLATE 5 MG TABLET. PO SCH (07:39)
[2016-06-03] MEDS: CHLORHEXIDINE 0.12% 15 ML MOUTHWASH. MM SCH ×2 (07:40→21:00)
[2016-06-03] MEDS: FAMOTIDINE 20 MG/2 ML VIAL IVP SCH (07:41)
[2016-06-03] MEDS: INSULIN ASPART 300 UNITS/3 ML INSULN.PEN SQ SCH ×3 (07:53→17:00)
[2016-06-03 08:39] LABS: HCO3 ABG 26 mmol/L (21-28); PCO2 ABG 57 mmHg (35-46); PH ABG 7.28 (7.35-7.45); PO2 ABG 61 mmHg (65-108); SAT O2 ABG 87 % (92-99)
[2016-06-03] MEDS: LEVOTHYROXINE SODIUM 50 MCG in IV NORMAL SALINE 50ML 5 ML IVP SCH (08:47)
[2016-06-03 09:00] LABS: FIO2 ABG 40
[2016-06-03] MEDS ORDERED: POTASSIUM CHLORIDE 20 MEQ/15 ML ORAL LIQUID. NG ONE (10:15)
--- NOTE | 2016-06-03 10:30 | PDOC ---
PROGRESS NOTES Chief Complaint Chief Complaint Acute respir failure ASSESSMENT AND PLAN: 1. COPD exacerbation: failed vent wean yesterday. cont vent, management as per Dr Damico. steroids, nebs. on Zosyn for bronchitis; no infiltrates on CXR 2. Pulm fibrosis 3. DM: on ISS. no home meds; suspect borderline, unmasked by steroids. check HgbA1c 4. Hypothyroidism: on synthroid 5. HTN: well controlled on home norvasc 6. HLD: on statin 7. Hyponatremia: mild. replete 8. LEONID: suspect vasomotor. improving with IVF 9. Prophylaxis: lovenox, H2B CC time: 35 min Vitals Vitals Vital Signs Date Time Temp Pulse Resp B/P Pulse Ox O2 Delivery O2 Flow Rate FiO2 06/03/16 09:37 99 Ventilator 06/03/16 09:00 102 20 151/73 06/03/16 08:00 8.0 06/03/16 08:00 98.8 98.8 Physical Exam General: No acute distress Heart: Regular rate Lungs: Wheezing Abdomen: Normal bowel sounds Extremities: No clubbing Skin: No breakdown Labs LABS Laboratory Tests Test 06/02/16 12:26 06/02/16 17:00 06/03/16 05:10 06/03/16 07:52 Glucose (Fingerstick) 106mg/dL (70-99) 99mg/dL (70-99) 112mg/dL (70-99) White Blood Count 7.9x10^3/uL (4.0-11.0) Red Blood Count 3.49x10^6/uL (3.50-5.40) Hemoglobin 11.3g/dL (12.0-15.5) Hematocrit 33.3% (36.0-47.0) Mean Corpuscular Volume 96fL (79-100) Mean Corpuscular Hemoglobin 32pg (25-35) Mean Corpuscular Hemoglobin Concent 34g/dL (31-37) Red Cell Distribution Width 14.6% (11.5-14.5) Platelet Count 140x10^3/uL (140-400) Neutrophils (%) (Auto) 81% (31-73) Lymphocytes (%) (Auto) 8% (24-48) Monocytes (%) (Auto) 9% (0-9) Eosinophils (%) (Auto) 1% (0-3) Basophils (%) (Auto) 0% (0-3) Neutrophils # (Auto) 6.4x10^3uL (1.8-7.7) Lymphocytes # (Auto) 0.7x10^3/uL (1.0-4.8) Monocytes # (Auto) 0.7x10^3/uL (0.0-1.1) Eosinophils # (Auto) 0.1x10^3/uL (0.0-0.7) Basophils # (Auto) 0.0x10^3/uL (0.0-0.2) Sodium Level 143mmol/L (136-145) Potassium Level 3.4mmol/L (3.5-5.1) Chloride Level 108mmol/L (98-107) Carbon Dioxide Level 26mmol/L (21-32) Anion Gap 9 (6-14) Blood Urea Nitrogen 40mg/dL (7-20) Creatinine 1.5mg/dL (0.6-1.0) Estimated GFR (Cockcroft-Gault) 35.1 Glucose Level 114mg/dL (70-99) Calcium Level 6.8mg/dL (8.5-10.1) Test 06/03/16 08:00 O2 Saturation 87% (92-99) Arterial Blood pH 7.28 (7.35-7.45) Arterial Blood pCO2 at Patient Temp 57mmHg (35-46) Arterial Blood pO2 at Patient Temp 61mmHg (65-108) Arterial Blood HCO3 26mmol/L (21-28) Arterial Blood Base Excess -1mmol/L (-3-3) FiO2 40 Review of Systems Review of Systems intubated, sedated PADDY MODI MD Jun 03, 2016 10:30
--- NOTE | 2016-06-03 11:21 | PDOC ---
Renal-Progress Notes Subjective Notes Notes NONE History of Present Illness Hx of present illness NO CHANGE Vitals Vitals Vital Signs Date Time Temp Pulse Resp B/P Pulse Ox O2 Delivery O2 Flow Rate FiO2 06/03/16 09:37 99 Ventilator 06/03/16 09:00 102 20 151/73 06/03/16 08:00 8.0 06/03/16 08:00 98.8 98.8 Weight Weight [ ] I.O. Intake and Output Intake and Output 06/03/16 07:00 Intake Total 5137 ml Output Total 1404 ml Balance 3733 ml IV Total 3398 ml Tube Feeding 378 ml Other 1361 ml Output Urine Total 1404 ml Gastric Drainage Total 0 ml Labs Labs Laboratory Tests Test 06/02/16 12:26 06/02/16 17:00 06/03/16 05:10 06/03/16 07:52 Glucose (Fingerstick) 106mg/dL (70-99) 99mg/dL (70-99) 112mg/dL (70-99) White Blood Count 7.9x10^3/uL (4.0-11.0) Red Blood Count 3.49x10^6/uL (3.50-5.40) Hemoglobin 11.3g/dL (12.0-15.5) Hematocrit 33.3% (36.0-47.0) Mean Corpuscular Volume 96fL (79-100) Mean Corpuscular Hemoglobin 32pg (25-35) Mean Corpuscular Hemoglobin Concent 34g/dL (31-37) Red Cell Distribution Width 14.6% (11.5-14.5) Platelet Count 140x10^3/uL (140-400) Neutrophils (%) (Auto) 81% (31-73) Lymphocytes (%) (Auto) 8% (24-48) Monocytes (%) (Auto) 9% (0-9) Eosinophils (%) (Auto) 1% (0-3) Basophils (%) (Auto) 0% (0-3) Neutrophils # (Auto) 6.4x10^3uL (1.8-7.7) Lymphocytes # (Auto) 0.7x10^3/uL (1.0-4.8) Monocytes # (Auto) 0.7x10^3/uL (0.0-1.1) Eosinophils # (Auto) 0.1x10^3/uL (0.0-0.7) Basophils # (Auto) 0.0x10^3/uL (0.0-0.2) Sodium Level 143mmol/L (136-145) Potassium Level 3.4mmol/L (3.5-5.1) Chloride Level 108mmol/L (98-107) Carbon Dioxide Level 26mmol/L (21-32) Anion Gap 9 (6-14) Blood Urea Nitrogen 40mg/dL (7-20) Creatinine 1.5mg/dL (0.6-1.0) Estimated GFR (Cockcroft-Gault) 35.1 Glucose Level 114mg/dL (70-99) Calcium Level 6.8mg/dL (8.5-10.1) Test 06/03/16 08:00 O2 Saturation 87% (92-99) Arterial Blood pH 7.28 (7.35-7.45) Arterial Blood pCO2 at Patient Temp 57mmHg (35-46) Arterial Blood pO2 at Patient Temp 61mmHg (65-108) Arterial Blood HCO3 26mmol/L (21-28) Arterial Blood Base Excess -1mmol/L (-3-3) FiO2 40 Micro Micro Microbiology 05/31/16 Blood Culture - Preliminary, Resulted NO GROWTH AFTER 2 DAYS Review of Systems Constitutional: yes: no symptom reported Physical Exam General Appearance: no apparent distress Respiratory: decreased breath sounds Heart: S1S2 Extremities: atrophy Assessment Assessment IMP LEONID BETTER WITH CR OF 1.5 HYPOKALEMIA RESP FAILURE AECOPD PLAN CONT TF REPLACE K PULM EVAL AND TX WILL FOLLOW LEE SOUZA MD Jun 03, 2016 11:21
--- NOTE | 2016-06-03 12:51 | PDOC ---
PULMONARY PROGRESS NOTES Subjective Pt sedated, follow commands Vitals Vital Signs Date Time Temp Pulse Resp B/P Pulse Ox O2 Delivery O2 Flow Rate FiO2 06/03/16 12:01 99 Ventilator 06/03/16 09:00 102 20 151/73 06/03/16 08:00 8.0 06/03/16 08:00 98.8 98.8 General: Alert Lungs: Wheezing Cardiovascular: S1, S2 Abdomen: Soft, Non-tender, Other Neuro Exam: Alert Extremities: No Edema Skin: Warm Labs Laboratory Tests Test 06/01/16 16:55 06/02/16 05:42 06/02/16 08:30 06/02/16 08:35 Glucose (Fingerstick) 135mg/dL (70-99) 90mg/dL (70-99) Sodium Level 142mmol/L (136-145) Potassium Level 3.6mmol/L (3.5-5.1) Chloride Level 106mmol/L (98-107) Carbon Dioxide Level 27mmol/L (21-32) Anion Gap 9 (6-14) Blood Urea Nitrogen 40mg/dL (7-20) Creatinine 1.8mg/dL (0.6-1.0) Estimated GFR (Cockcroft-Gault) 28.4 Glucose Level 96mg/dL (70-99) Calcium Level 6.8mg/dL (8.5-10.1) O2 Saturation 98% (92-99) Arterial Blood pH 7.38 (7.35-7.45) Arterial Blood pCO2 at Patient Temp 43mmHg (35-46) Arterial Blood pO2 at Patient Temp 125mmHg (65-108) Arterial Blood HCO3 25mmol/L (21-28) Arterial Blood Base Excess 0mmol/L (-3-3) FiO2 40 Test 06/02/16 12:26 06/02/16 17:00 06/03/16 05:10 06/03/16 07:52 Glucose (Fingerstick) 106mg/dL (70-99) 99mg/dL (70-99) 112mg/dL (70-99) White Blood Count 7.9x10^3/uL (4.0-11.0) Red Blood Count 3.49x10^6/uL (3.50-5.40) Hemoglobin 11.3g/dL (12.0-15.5) Hematocrit 33.3% (36.0-47.0) Mean Corpuscular Volume 96fL (79-100) Mean Corpuscular Hemoglobin 32pg (25-35) Mean Corpuscular Hemoglobin Concent 34g/dL (31-37) Red Cell Distribution Width 14.6% (11.5-14.5) Platelet Count 140x10^3/uL (140-400) Neutrophils (%) (Auto) 81% (31-73) Lymphocytes (%) (Auto) 8% (24-48) Monocytes (%) (Auto) 9% (0-9) Eosinophils (%) (Auto) 1% (0-3) Basophils (%) (Auto) 0% (0-3) Neutrophils # (Auto) 6.4x10^3uL (1.8-7.7) Lymphocytes # (Auto) 0.7x10^3/uL (1.0-4.8) Monocytes # (Auto) 0.7x10^3/uL (0.0-1.1) Eosinophils # (Auto) 0.1x10^3/uL (0.0-0.7) Basophils # (Auto) 0.0x10^3/uL (0.0-0.2) Sodium Level 143mmol/L (136-145) Potassium Level 3.4mmol/L (3.5-5.1) Chloride Level 108mmol/L (98-107) Carbon Dioxide Level 26mmol/L (21-32) Anion Gap 9 (6-14) Blood Urea Nitrogen 40mg/dL (7-20) Creatinine 1.5mg/dL (0.6-1.0) Estimated GFR (Cockcroft-Gault) 35.1 Glucose Level 114mg/dL (70-99) Calcium Level 6.8mg/dL (8.5-10.1) Test 06/03/16 08:00 06/03/16 11:52 O2 Saturation 87% (92-99) Arterial Blood pH 7.28 (7.35-7.45) Arterial Blood pCO2 at Patient Temp 57mmHg (35-46) Arterial Blood pO2 at Patient Temp 61mmHg (65-108) Arterial Blood HCO3 26mmol/L (21-28) Arterial Blood Base Excess -1mmol/L (-3-3) FiO2 40 Glucose (Fingerstick) 110mg/dL (70-99) Laboratory Tests Test 06/02/16 17:00 06/03/16 05:10 06/03/16 07:52 06/03/16 08:00 Glucose (Fingerstick) 99mg/dL (70-99) 112mg/dL (70-99) White Blood Count 7.9x10^3/uL (4.0-11.0) Red Blood Count 3.49x10^6/uL (3.50-5.40) Hemoglobin 11.3g/dL (12.0-15.5) Hematocrit 33.3% (36.0-47.0) Mean Corpuscular Volume 96fL (79-100) Mean Corpuscular Hemoglobin 32pg (25-35) Mean Corpuscular Hemoglobin Concent 34g/dL (31-37) Red Cell Distribution Width 14.6% (11.5-14.5) Platelet Count 140x10^3/uL (140-400) Neutrophils (%) (Auto) 81% (31-73) Lymphocytes (%) (Auto) 8% (24-48) Monocytes (%) (Auto) 9% (0-9) Eosinophils (%) (Auto) 1% (0-3) Basophils (%) (Auto) 0% (0-3) Neutrophils # (Auto) 6.4x10^3uL (1.8-7.7) Lymphocytes # (Auto) 0.7x10^3/uL (1.0-4.8) Monocytes # (Auto) 0.7x10^3/uL (0.0-1.1) Eosinophils # (Auto) 0.1x10^3/uL (0.0-0.7) Basophils # (Auto) 0.0x10^3/uL (0.0-0.2) Sodium Level 143mmol/L (136-145) Potassium Level 3.4mmol/L (3.5-5.1) Chloride Level 108mmol/L (98-107) Carbon Dioxide Level 26mmol/L (21-32) Anion Gap 9 (6-14) Blood Urea Nitrogen 40mg/dL (7-20) Creatinine 1.5mg/dL (0.6-1.0) Estimated GFR (Cockcroft-Gault) 35.1 Glucose Level 114mg/dL (70-99) Calcium Level 6.8mg/dL (8.5-10.1) O2 Saturation 87% (92-99) Arterial Blood pH 7.28 (7.35-7.45) Arterial Blood pCO2 at Patient Temp 57mmHg (35-46) Arterial Blood pO2 at Patient Temp 61mmHg (65-108) Arterial Blood HCO3 26mmol/L (21-28) Arterial Blood Base Excess -1mmol/L (-3-3) FiO2 40 Test 06/03/16 11:52 Glucose (Fingerstick) 110mg/dL (70-99) Medications Active Scripts Medications Dose Route/Sig Days Date Category Ropinirole Hcl 1 Mg Tablet 1 Mg PO BID 02/24/16 Reported Daliresp (Roflumilast) 500 Mcg Tablet 500 Mcg PO DAILY 11/16/14 Reported Albuterol Sulfate Conc Neb Soln (Albuterol Sulfate) 2.5 Mg/0.5 Ml Vial.neb 2.5 Mg NEB QID 11/16/14 Reported Singulair Tablet (Montelukast Sodium) 10 Mg Tablet 10 Mg PO HS 11/16/14 Reported Ranitidine Hcl 300 Mg Tablet 300 Mg PO BID 11/16/14 Reported Tums (Calcium Carbonate) 200 Mg Tab.chew 400 Mg PO PRN Q6HRS PRN 11/16/14 Reported Vitamin D2 (Ergocalciferol (Vitamin D2)) 50,000 Unit Capsule 50,000 Unit PO QSU 11/16/14 Reported Zyrtec (Cetirizine Hcl) 10 Mg Capsule 10 Mg PO DAILY 04/21/14 Reported Multivitamins (Multivitamin) 1 Each Capsule 1 Each PO DAILY 04/21/14 Reported Lum[place] (Bimatoprost) 2.5 Ml Drops 1 Drop EACHEYE QHS 04/21/14 Reported Melatonin 3 Mg Tablet 10 Mg PO QHS 04/21/14 Reported Atorvastatin Calcium 20 Mg Tablet 20 Mg PO HS 04/21/14 Reported Amlodipine Besylate 5 Mg Tablet 1 Tab PO DAILY 04/21/14 Reported Levothyroxine Sodium 100 Mcg Tablet 100 Mcg PO DAILY06 04/21/14 Reported Fluticasone Propionate Nasal [place] (Fluticasone Propionate) 16 Gm [place].susp 2 [place] NS BID 04/21/14 Reported Azathioprine 50 Mg Tablet 50 Mg PO HS 04/21/14 Reported Docusate Sodium 100 Mg Capsule 100 Mg PO PRN BID 05/03/13 Reported Alprazolam 0.5 Mg Tablet 0.5 Mg PO TID 05/03/13 Reported Gabapentin 300 Mg Capsule 300 Mg PO BID 05/03/13 Reported Albuterol Sulfate Hfa Inhaler (Albuterol Sulfate) 8.5 Gm Hfa.aer.ad 8.5 Gm IH PRN PRN 05/03/13 Reported Aspirin 81 Mg Tab.chew 81 Mg PO DAILY 05/03/13 Reported Hydrocodone-Apap 7.5-325 (Hydrocodone Bit/Acetaminophen) 1 Each Tablet 1-2 Each PO PRN QID PRN 05/03/13 Reported Celexa (Citalopram Hydrobromide) 10 Mg Tablet 20 Mg PO HS 05/03/13 Reported Azathioprine 50 Mg Tablet 100 Mg PO DAILY08 05/03/13 Reported Alendronate Sodium 70 Mg Tablet 70 Mg PO QSU 05/03/13 Reported Impression . 1. [id number]-[id number] respiratory failure. 2. Acute exacerbation of chronic obstructive pulmonary disease, suspect viral. 3. Fever. 4. Severe chronic obstructive pulmonary disease with previous pneumothoraces requiring endobronchial valve placement. 5. Interstitial lung disease. 6. Hypertension. 7. Type 2 diabetes. 8. Acute kidney injury with anuria. Plan . attempted trial not ready for extubation, needs more time to improve d/w and daughter 1. We will continue current mechanical support. 2. follow nephro input 3. We will continue IV steroids and empiric antibiotics to cover both gram- negative and gram-positive organisms. 4. De-escalate antibiotics in am 5. Continue home medications. 6. Deep venous thrombosis and gastrointestinal prophylaxis. TINY MCFADDEN MD Jun 03, 2016 12:51
[2016-06-03] MEDS: ATORVASTATIN CALCIUM 20 MG TABLET PO SCH (21:00)
[2016-06-04] VITALS (22 sets, daily range): BP systolic 113–160; BP diastolic 63–78
[2016-06-04] MEDS: PIPERACILLIN/TAZOBACTAM 4.5 GM in IV NORMAL SALINE 100ML 100 ML IV SCH ×5 (00:10→23:29)
[2016-06-04] MEDS: IV NORMAL SALINE 1000ML BAG 1,000 ML IV SCH ×3 (00:10→08:32)
[2016-06-04] MEDS: PROPOFOL 100 ML IV PRN ×6 (02:19→23:29)
[2016-06-04 07:16] LABS: CALCIUM 7.1 mg/dL (8.5-10.1); CREATININE 1.2 mg/dL (0.6-1.0); GFR 45.4; MAGNESIUM 1.9 mg/dL (1.8-2.4); POTASSIUM 3.4 mmol/L (3.5-5.1)
[2016-06-04] MEDS: INSULIN ASPART 300 UNITS/3 ML INSULN.PEN SQ SCH ×3 (08:00→17:00)
[2016-06-04] MEDS: IPRATRPIUM/ALBUTEROL 0.5/2.5MG 3 ML NEBU. NEB SCH ×4 (08:03→19:54)
[2016-06-04 08:30] LABS: HCO3 ABG 25 mmol/L (21-28); PCO2 ABG 47 mmHg (35-46); PH ABG 7.35 (7.35-7.45); PO2 ABG 126 mmHg (65-108); SAT O2 ABG 98 % (92-99)
[2016-06-04] MEDS: CHLORHEXIDINE 0.12% 15 ML MOUTHWASH. MM SCH ×2 (08:30→21:45)
[2016-06-04] MEDS: ASPIRIN CHEWABLE 81 MG TABLET. PO SCH (08:31)
[2016-06-04] MEDS: FAMOTIDINE 20 MG/2 ML VIAL IVP SCH (08:31)
[2016-06-04] MEDS: rOPINIRole 1 MG TABLET. PO SCH ×2 (08:31→21:44)
[2016-06-04] MEDS: ROFLUMILAST 500 MCG TABLET. PO SCH (08:31)
[2016-06-04] MEDS: AMLODIPINE BESYLATE 5 MG TABLET. PO SCH (08:31)
[2016-06-04] MEDS: ENOXAPARIN 40 MG/0.4 ML SYRINGE. SQ SCH ×2 (08:31→21:45)
[2016-06-04 08:36] LABS: FIO2 ABG 40
[2016-06-04] MEDS: FENTANYL PF 100 MCG/2 ML VIAL. IV PRN (10:45)
[2016-06-04] MEDS ORDERED: POTASSIUM CHLORIDE 30 MEQ in IV 1/2 NORMAL SALINE 1,000 ML IV PRN (11:00)
--- NOTE | 2016-06-04 11:00 | PDOC ---
PROGRESS NOTES Chief Complaint Chief Complaint Acute respir failure ASSESSMENT AND PLAN: 1. COPD exacerbation: failed vent weans sofar, incl this AM. increase sedation for now, re-trial later. steroids, nebs. on Zosyn for bronchitis; no infiltrates on CXR 2 days ago; rpt. d/w Dr Damico 2. Pulm fibrosis 3. DM: on ISS. no home meds; suspect borderline, unmasked by steroids. check HgbA1c 4. Hypothyroidism: on synthroid 5. HTN: well controlled on home norvasc 6. HLD: on statin 7. Hyponatremia: now hypernatremia. increase free water in TF 8. Hypokalemia: replete IV 9. LEONID: resolving 10. Nutrition: OG feeds 11. Prophylaxis: lovenox, H2B CC time: 35 min Vitals Vitals Vital Signs Date Time Temp Pulse Resp B/P Pulse Ox O2 Delivery O2 Flow Rate FiO2 06/04/16 10:00 78 16 160/63 94 T-Tube 06/04/16 04:00 98.0 98.0 06/03/16 08:00 8.0 Physical Exam General: No acute distress, Other (remains intubated) Heart: Regular rate Lungs: Wheezing Abdomen: Normal bowel sounds Extremities: No clubbing Skin: No breakdown Labs LABS Laboratory Tests Test 06/03/16 11:52 06/03/16 17:35 06/04/16 06:20 06/04/16 08:00 Glucose (Fingerstick) 110mg/dL (70-99) 101mg/dL (70-99) Sodium Level 148mmol/L (136-145) Potassium Level 3.4mmol/L (3.5-5.1) Chloride Level 111mmol/L (98-107) Carbon Dioxide Level 28mmol/L (21-32) Anion Gap 9 (6-14) Blood Urea Nitrogen 27mg/dL (7-20) Creatinine 1.2mg/dL (0.6-1.0) Estimated GFR (Cockcroft-Gault) 45.4 Glucose Level 116mg/dL (70-99) Calcium Level 7.1mg/dL (8.5-10.1) Magnesium Level 1.9mg/dL (1.8-2.4) O2 Saturation 98% (92-99) Arterial Blood pH 7.35 (7.35-7.45) Arterial Blood pCO2 at Patient Temp 47mmHg (35-46) Arterial Blood pO2 at Patient Temp 126mmHg (65-108) Arterial Blood HCO3 25mmol/L (21-28) Arterial Blood Base Excess 0mmol/L (-3-3) FiO2 40 Review of Systems Review of Systems intubated, lightly sedated PADDY MODI MD Jun 04, 2016 11:00
[2016-06-04 11:05] LABS: HCO3 ABG 28 mmol/L (21-28); PH ABG 7.28 (7.35-7.45); PO2 ABG 83 mmHg (65-108); SAT O2 ABG 95 % (92-99)
[2016-06-04 11:06] LABS: FIO2 ABG 40; PCO2 ABG 62 mmHg (35-46)
[2016-06-04] MEDS: LEVOTHYROXINE SODIUM 50 MCG in IV NORMAL SALINE 50ML 5 ML IVP SCH (12:08)
--- NOTE | 2016-06-04 12:23 | PDOC ---
Renal-Progress Notes Subjective Notes Notes NONE, INTUBATED History of Present Illness Hx of present illness STABLE Vitals Vitals Vital Signs Date Time Temp Pulse Resp B/P Pulse Ox O2 Delivery O2 Flow Rate FiO2 06/04/16 11:44 96 Ventilator 06/04/16 10:45 21 8.0 06/04/16 10:00 78 160/63 06/04/16 04:00 98.0 98.0 Weight Weight [ ] I.O. Intake and Output Intake and Output 06/04/16 06:59 Intake Total 3778 ml Output Total 2435 ml Balance 1343 ml IV Total 2714 ml Tube Feeding 1044 ml Other 20 ml Output Urine Total 2435 ml Gastric Drainage Total 0 ml # Bowel Movements 4 Labs Labs Laboratory Tests Test 06/03/16 17:35 06/04/16 06:20 06/04/16 08:00 06/04/16 09:59 Glucose (Fingerstick) 101mg/dL (70-99) Sodium Level 148mmol/L (136-145) Potassium Level 3.4mmol/L (3.5-5.1) Chloride Level 111mmol/L (98-107) Carbon Dioxide Level 28mmol/L (21-32) Anion Gap 9 (6-14) Blood Urea Nitrogen 27mg/dL (7-20) Creatinine 1.2mg/dL (0.6-1.0) Estimated GFR (Cockcroft-Gault) 45.4 Glucose Level 116mg/dL (70-99) Calcium Level 7.1mg/dL (8.5-10.1) Magnesium Level 1.9mg/dL (1.8-2.4) O2 Saturation 98% (92-99) 95% (92-99) Arterial Blood pH 7.35 (7.35-7.45) 7.28 (7.35-7.45) Arterial Blood pCO2 at Patient Temp 47mmHg (35-46) 62mmHg (35-46) Arterial Blood pO2 at Patient Temp 126mmHg (65-108) 83mmHg (65-108) Arterial Blood HCO3 25mmol/L (21-28) 28mmol/L (21-28) Arterial Blood Base Excess 0mmol/L (-3-3) 0mmol/L (-3-3) FiO2 40 40 Micro Micro Microbiology 05/31/16 Blood Culture - Preliminary, Resulted NO GROWTH AFTER 3 DAYS Review of Systems Constitutional: yes: no symptom reported Physical Exam General Appearance: no apparent distress Respiratory: decreased breath sounds Heart: S1S2 Extremities: atrophy Assessment Assessment IMP LEONID BETTER WITH CR OF 1.2 HYPOKALEMIA RESP FAILURE AECOPD HYPERNATREMIA PLAN CONT TF REPLACE K FREE WATER PULM EVAL AND TX WILL FOLLOW UPDATED LEE SOUZA MD Jun 04, 2016 12:23
--- NOTE | 2016-06-04 15:03 | PDOC ---
PULMONARY PROGRESS NOTES Subjective Pt sedated, follow commands Vitals Vital Signs Date Time Temp Pulse Resp B/P Pulse Ox O2 Delivery O2 Flow Rate FiO2 06/04/16 13:00 96 Ventilator 06/04/16 11:15 8.0 06/04/16 10:45 21 06/04/16 10:00 78 160/63 06/04/16 04:00 98.0 98.0 General: Alert Lungs: Wheezing Cardiovascular: S1, S2 Abdomen: Soft, Non-tender, Other Neuro Exam: Alert Extremities: No Edema Skin: Warm Labs Laboratory Tests Test 06/02/16 17:00 06/03/16 05:10 06/03/16 07:52 06/03/16 08:00 Glucose (Fingerstick) 99mg/dL (70-99) 112mg/dL (70-99) White Blood Count 7.9x10^3/uL (4.0-11.0) Red Blood Count 3.49x10^6/uL (3.50-5.40) Hemoglobin 11.3g/dL (12.0-15.5) Hematocrit 33.3% (36.0-47.0) Mean Corpuscular Volume 96fL (79-100) Mean Corpuscular Hemoglobin 32pg (25-35) Mean Corpuscular Hemoglobin Concent 34g/dL (31-37) Red Cell Distribution Width 14.6% (11.5-14.5) Platelet Count 140x10^3/uL (140-400) Neutrophils (%) (Auto) 81% (31-73) Lymphocytes (%) (Auto) 8% (24-48) Monocytes (%) (Auto) 9% (0-9) Eosinophils (%) (Auto) 1% (0-3) Basophils (%) (Auto) 0% (0-3) Neutrophils # (Auto) 6.4x10^3uL (1.8-7.7) Lymphocytes # (Auto) 0.7x10^3/uL (1.0-4.8) Monocytes # (Auto) 0.7x10^3/uL (0.0-1.1) Eosinophils # (Auto) 0.1x10^3/uL (0.0-0.7) Basophils # (Auto) 0.0x10^3/uL (0.0-0.2) Sodium Level 143mmol/L (136-145) Potassium Level 3.4mmol/L (3.5-5.1) Chloride Level 108mmol/L (98-107) Carbon Dioxide Level 26mmol/L (21-32) Anion Gap 9 (6-14) Blood Urea Nitrogen 40mg/dL (7-20) Creatinine 1.5mg/dL (0.6-1.0) Estimated GFR (Cockcroft-Gault) 35.1 Glucose Level 114mg/dL (70-99) Hemoglobin A1c 5.6% (4.8-5.6) Calcium Level 6.8mg/dL (8.5-10.1) O2 Saturation 87% (92-99) Arterial Blood pH 7.28 (7.35-7.45) Arterial Blood pCO2 at Patient Temp 57mmHg (35-46) Arterial Blood pO2 at Patient Temp 61mmHg (65-108) Arterial Blood HCO3 26mmol/L (21-28) Arterial Blood Base Excess -1mmol/L (-3-3) FiO2 40 Test 06/03/16 11:52 06/03/16 17:35 06/04/16 06:20 06/04/16 08:00 Glucose (Fingerstick) 110mg/dL (70-99) 101mg/dL (70-99) Sodium Level 148mmol/L (136-145) Potassium Level 3.4mmol/L (3.5-5.1) Chloride Level 111mmol/L (98-107) Carbon Dioxide Level 28mmol/L (21-32) Anion Gap 9 (6-14) Blood Urea Nitrogen 27mg/dL (7-20) Creatinine 1.2mg/dL (0.6-1.0) Estimated GFR (Cockcroft-Gault) 45.4 Glucose Level 116mg/dL (70-99) Calcium Level 7.1mg/dL (8.5-10.1) Magnesium Level 1.9mg/dL (1.8-2.4) O2 Saturation 98% (92-99) Arterial Blood pH 7.35 (7.35-7.45) Arterial Blood pCO2 at Patient Temp 47mmHg (35-46) Arterial Blood pO2 at Patient Temp 126mmHg (65-108) Arterial Blood HCO3 25mmol/L (21-28) Arterial Blood Base Excess 0mmol/L (-3-3) FiO2 40 Test 06/04/16 09:59 06/04/16 12:12 O2 Saturation 95% (92-99) Arterial Blood pH 7.28 (7.35-7.45) Arterial Blood pCO2 at Patient Temp 62mmHg (35-46) Arterial Blood pO2 at Patient Temp 83mmHg (65-108) Arterial Blood HCO3 28mmol/L (21-28) Arterial Blood Base Excess 0mmol/L (-3-3) FiO2 40 Glucose (Fingerstick) 114mg/dL (70-99) Laboratory Tests Test 06/03/16 17:35 06/04/16 06:20 06/04/16 08:00 06/04/16 09:59 Glucose (Fingerstick) 101mg/dL (70-99) Sodium Level 148mmol/L (136-145) Potassium Level 3.4mmol/L (3.5-5.1) Chloride Level 111mmol/L (98-107) Carbon Dioxide Level 28mmol/L (21-32) Anion Gap 9 (6-14) Blood Urea Nitrogen 27mg/dL (7-20) Creatinine 1.2mg/dL (0.6-1.0) Estimated GFR (Cockcroft-Gault) 45.4 Glucose Level 116mg/dL (70-99) Calcium Level 7.1mg/dL (8.5-10.1) Magnesium Level 1.9mg/dL (1.8-2.4) O2 Saturation 98% (92-99) 95% (92-99) Arterial Blood pH 7.35 (7.35-7.45) 7.28 (7.35-7.45) Arterial Blood pCO2 at Patient Temp 47mmHg (35-46) 62mmHg (35-46) Arterial Blood pO2 at Patient Temp 126mmHg (65-108) 83mmHg (65-108) Arterial Blood HCO3 25mmol/L (21-28) 28mmol/L (21-28) Arterial Blood Base Excess 0mmol/L (-3-3) 0mmol/L (-3-3) FiO2 40 40 Test 06/04/16 12:12 Glucose (Fingerstick) 114mg/dL (70-99) Medications Active Scripts Medications Dose Route/Sig Days Date Category Ropinirole Hcl 1 Mg Tablet 1 Mg PO BID 02/24/16 Reported Daliresp (Roflumilast) 500 Mcg Tablet 500 Mcg PO DAILY 11/16/14 Reported Albuterol Sulfate Conc Neb Soln (Albuterol Sulfate) 2.5 Mg/0.5 Ml Vial.neb 2.5 Mg NEB QID 11/16/14 Reported Singulair Tablet (Montelukast Sodium) 10 Mg Tablet 10 Mg PO HS 11/16/14 Reported Ranitidine Hcl 300 Mg Tablet 300 Mg PO BID 11/16/14 Reported Tums (Calcium Carbonate) 200 Mg Tab.chew 400 Mg PO PRN Q6HRS PRN 11/16/14 Reported Vitamin D2 (Ergocalciferol (Vitamin D2)) 50,000 Unit Capsule 50,000 Unit PO QSU 11/16/14 Reported Zyrtec (Cetirizine Hcl) 10 Mg Capsule 10 Mg PO DAILY 04/21/14 Reported Multivitamins (Multivitamin) 1 Each Capsule 1 Each PO DAILY 04/21/14 Reported Lumigan (Bimatoprost) 2.5 Ml Drops 1 Drop EACHEYE QHS 04/21/14 Reported Melatonin 3 Mg Tablet 10 Mg PO QHS 04/21/14 Reported Atorvastatin Calcium 20 Mg Tablet 20 Mg PO HS 04/21/14 Reported Amlodipine Besylate 5 Mg Tablet 1 Tab PO DAILY 04/21/14 Reported Levothyroxine Sodium 100 Mcg Tablet 100 Mcg PO DAILY06 04/21/14 Reported Fluticasone Propionate Nasal [place] (Fluticasone Propionate) 16 Gm [place].susp 2 [place] NS BID 04/21/14 Reported Azathioprine 50 Mg Tablet 50 Mg PO HS 04/21/14 Reported Docusate Sodium 100 Mg Capsule 100 Mg PO PRN BID 05/03/13 Reported Alprazolam 0.5 Mg Tablet 0.5 Mg PO TID 05/03/13 Reported Gabapentin 300 Mg Capsule 300 Mg PO BID 05/03/13 Reported Albuterol Sulfate Hfa Inhaler (Albuterol Sulfate) 8.5 Gm Hfa.aer.ad 8.5 Gm IH PRN PRN 05/03/13 Reported Aspirin 81 Mg Tab.chew 81 Mg PO DAILY 05/03/13 Reported Hydrocodone-Apap 7.5-325 (Hydrocodone Bit/Acetaminophen) 1 Each Tablet 1-2 Each PO PRN QID PRN 05/03/13 Reported Celexa (Citalopram Hydrobromide) 10 Mg Tablet 20 Mg PO HS 05/03/13 Reported Azathioprine 50 Mg Tablet 100 Mg PO DAILY08 05/03/13 Reported Alendronate Sodium 70 Mg Tablet 70 Mg PO QSU 05/03/13 Reported Impression . 1. [id number] respiratory failure. 2. Acute exacerbation of chronic obstructive pulmonary disease, suspect viral. 3. Fever. 4. Severe chronic obstructive pulmonary disease with previous pneumothoraces requiring endobronchial valve placement. 5. Interstitial lung disease. 6. Hypertension. 7. Type 2 diabetes. 8. Acute kidney injury with anuria. Plan . once again attempted trial not ready for extubation, increase PC02 may need to extubate without trial and place on bipap 1. We will continue current mechanical support. 2. follow nephro input 3. We will continue IV steroids and empiric antibiotics to cover both gram- negative and gram-positive organisms. 4. De-escalate antibiotics in am 5. Continue home medications. 6. Deep venous thrombosis and gastrointestinal prophylaxis. TINY MCFADDEN MD Jun 04, 2016 15:03
--- NOTE | 2016-06-04 15:17 | RAD ---
Portable chest, 06/04/2016: History: Shortness of breath Comparison is made to a study from 06/01/2016. An ET tube remains in place with its tip located well above the lelia. An NG tube extends into the stomach although its tip is not visible. The patient is rotated to the right. The heart size and pulmonary vascularity are normal. No pulmonary infiltrates are seen. There is no evidence of pleural fluid. Postsurgical changes are evident in the lower cervical spine. IMPRESSION: 1. Stable tube positions. 2. No acute cardiopulmonary abnormality is detected.
[2016-06-04] MEDS: ATORVASTATIN CALCIUM 20 MG TABLET PO SCH (21:44)
[2016-06-05] VITALS (23 sets, daily range): BP systolic 120–215; BP diastolic 57–98
[2016-06-05] MEDS: PROPOFOL 100 ML IV PRN ×2 (02:11→05:07)
[2016-06-05] MEDS: PIPERACILLIN/TAZOBACTAM 4.5 GM in IV NORMAL SALINE 100ML 100 ML IV SCH ×4 (06:02→23:17)
[2016-06-05] MEDS: IPRATRPIUM/ALBUTEROL 0.5/2.5MG 3 ML NEBU. NEB SCH ×4 (07:15→20:03)
[2016-06-05 07:43] LABS: HCO3 ABG 25 mmol/L (21-28); PCO2 ABG 42 mmHg (35-46); PO2 ABG 103 mmHg (65-108); SAT O2 ABG 98 % (92-99)
[2016-06-05 07:44] LABS: FIO2 ABG 35; PH ABG 7.39 (7.35-7.45)
[2016-06-05] MEDS: INSULIN ASPART 300 UNITS/3 ML INSULN.PEN SQ SCH ×3 (08:00→17:00)
[2016-06-05 09:25] LABS: BASO % 0 % (0-3); EOS % 2 % (0-3); HEMATOCRIT 35.4 % (36.0-47.0); HEMOGLOBIN 11.4 g/dL (12.0-15.5); LYMPH # 0.8 x10^3/uL (1.0-4.8); LYMPH % 8 % (24-48); MEAN CORPUSCULAR HEMOGLOBIN 31 pg (25-35); MEAN CORPUSCULAR HGB CONC 32 g/dL (31-37); MEAN CORPUSCULAR VOLUME 97 fL (79-100); MONO % 13 % (0-9); NEUT % 77 % (31-73); PLATELET COUNT 140 x10^3/uL (140-400); RED BLOOD COUNT 3.67 x10^6/uL (3.50-5.40); RED CELL DISTRIBUTION WIDTH 14.4 % (11.5-14.5); WHITE BLOOD COUNT 10.1 x10^3/uL (4.0-11.0)
[2016-06-05 09:41] LABS: CALCIUM 7.9 mg/dL (8.5-10.1); CREATININE 1.1 mg/dL (0.6-1.0); GFR 50.2; MAGNESIUM 2.1 mg/dL (1.8-2.4); POTASSIUM 3.7 mmol/L (3.5-5.1)
--- NOTE | 2016-06-05 10:52 | PDOC ---
Renal-Progress Notes Subjective Notes Notes NONE History of Present Illness Hx of present illness ON VENT Vitals Vitals Vital Signs Date Time Temp Pulse Resp B/P Pulse Ox O2 Delivery O2 Flow Rate FiO2 06/05/16 07:16 95 Ventilator 06/05/16 06:00 76 16 123/79 06/05/16 05:00 97.7 97.7 06/04/16 11:15 8.0 Weight Weight [ ] I.O. Intake and Output Intake and Output 06/05/16 06:59 Intake Total 1133 ml Output Total 1810 ml Balance -677 ml Tube Feeding 933 ml Other 200 ml Output Urine Total 1810 ml Gastric Drainage Total 0 ml Labs Labs Laboratory Tests Test 06/04/16 12:12 06/04/16 18:17 06/05/16 08:00 06/05/16 09:00 Glucose (Fingerstick) 114mg/dL (70-99) 107mg/dL (70-99) O2 Saturation 98% (92-99) Arterial Blood pH 7.39 (7.35-7.45) Arterial Blood pCO2 at Patient Temp 42mmHg (35-46) Arterial Blood pO2 at Patient Temp 103mmHg (65-108) Arterial Blood HCO3 25mmol/L (21-28) Arterial Blood Base Excess 0mmol/L (-3-3) FiO2 35 White Blood Count 10.1x10^3/uL (4.0-11.0) Red Blood Count 3.67x10^6/uL (3.50-5.40) Hemoglobin 11.4g/dL (12.0-15.5) Hematocrit 35.4% (36.0-47.0) Mean Corpuscular Volume 97fL (79-100) Mean Corpuscular Hemoglobin 31pg (25-35) Mean Corpuscular Hemoglobin Concent 32g/dL (31-37) Red Cell Distribution Width 14.4% (11.5-14.5) Platelet Count 140x10^3/uL (140-400) Neutrophils (%) (Auto) 77% (31-73) Lymphocytes (%) (Auto) 8% (24-48) Monocytes (%) (Auto) 13% (0-9) Eosinophils (%) (Auto) 2% (0-3) Basophils (%) (Auto) 0% (0-3) Neutrophils # (Auto) 7.8x10^3uL (1.8-7.7) Lymphocytes # (Auto) 0.8x10^3/uL (1.0-4.8) Monocytes # (Auto) 1.3x10^3/uL (0.0-1.1) Eosinophils # (Auto) 0.2x10^3/uL (0.0-0.7) Basophils # (Auto) 0.0x10^3/uL (0.0-0.2) Sodium Level 145mmol/L (136-145) Potassium Level 3.7mmol/L (3.5-5.1) Chloride Level 109mmol/L (98-107) Carbon Dioxide Level 29mmol/L (21-32) Anion Gap 7 (6-14) Blood Urea Nitrogen 24mg/dL (7-20) Creatinine 1.1mg/dL (0.6-1.0) Estimated GFR (Cockcroft-Gault) 50.2 Glucose Level 111mg/dL (70-99) Calcium Level 7.9mg/dL (8.5-10.1) Magnesium Level 2.1mg/dL (1.8-2.4) Micro Micro Microbiology 05/31/16 Blood Culture - Preliminary, Resulted NO GROWTH AFTER 4 DAYS Review of Systems Constitutional: yes: no symptom reported Physical Exam General Appearance: no apparent distress Respiratory: decreased breath sounds Heart: S1S2 Extremities: atrophy Assessment Assessment IMP LEONID - ESSENTIALLY RESOLVED HYPOKALEMIA RESP FAILURE AECOPD HYPERNATREMIA PLAN CONT TF REPLACE K FREE WATER PULM EVAL AND TX WILL SIGN OFF PLEASE CALL IF NEEDED LEE SOUZA MD Jun 05, 2016 10:51
--- NOTE | 2016-06-05 11:13 | PDOC ---
PROGRESS NOTES Chief Complaint Chief Complaint Acute respir failure ASSESSMENT AND PLAN: 1. COPD exacerbation: failed T-tube trial this AM. management as per Dr Damico. steroid taper, nebs. no infiltrates on CXR; switch zosyn to levaquin for bronchitis 2. Pulm fibrosis 3. DM: well controlled, on ISS. no home meds; suspect borderline, unmasked by steroids. awaiting HgbA1c 4. Hypothyroidism: on synthroid 5. HTN: well controlled on home norvasc 6. HLD: on statin 7. Hypo/hypernatremia: resolved. off IVF; manage with OG tube feeds/free water flushes 8. Hypokalemia: resolved. moniotr 9. LEONID: suspect resolved. creat stable at CKD3 range 10. Nutrition: OG feeds 11. Prophylaxis: lovenox, H2B CC time: 35 min Vitals Vitals Vital Signs Date Time Temp Pulse Resp B/P Pulse Ox O2 Delivery O2 Flow Rate FiO2 06/05/16 07:16 95 Ventilator 06/05/16 06:00 76 16 123/79 06/05/16 05:00 97.7 97.7 06/04/16 11:15 8.0 Physical Exam General: No acute distress, Other (remains intubated, lightly sedated) Heart: Regular rate Lungs: Wheezing Abdomen: Normal bowel sounds Extremities: No clubbing Skin: No breakdown Labs LABS Laboratory Tests Test 06/04/16 12:12 06/04/16 18:17 06/05/16 08:00 06/05/16 09:00 Glucose (Fingerstick) 114mg/dL (70-99) 107mg/dL (70-99) O2 Saturation 98% (92-99) Arterial Blood pH 7.39 (7.35-7.45) Arterial Blood pCO2 at Patient Temp 42mmHg (35-46) Arterial Blood pO2 at Patient Temp 103mmHg (65-108) Arterial Blood HCO3 25mmol/L (21-28) Arterial Blood Base Excess 0mmol/L (-3-3) FiO2 35 White Blood Count 10.1x10^3/uL (4.0-11.0) Red Blood Count 3.67x10^6/uL (3.50-5.40) Hemoglobin 11.4g/dL (12.0-15.5) Hematocrit 35.4% (36.0-47.0) Mean Corpuscular Volume 97fL (79-100) Mean Corpuscular Hemoglobin 31pg (25-35) Mean Corpuscular Hemoglobin Concent 32g/dL (31-37) Red Cell Distribution Width 14.4% (11.5-14.5) Platelet Count 140x10^3/uL (140-400) Neutrophils (%) (Auto) 77% (31-73) Lymphocytes (%) (Auto) 8% (24-48) Monocytes (%) (Auto) 13% (0-9) Eosinophils (%) (Auto) 2% (0-3) Basophils (%) (Auto) 0% (0-3) Neutrophils # (Auto) 7.8x10^3uL (1.8-7.7) Lymphocytes # (Auto) 0.8x10^3/uL (1.0-4.8) Monocytes # (Auto) 1.3x10^3/uL (0.0-1.1) Eosinophils # (Auto) 0.2x10^3/uL (0.0-0.7) Basophils # (Auto) 0.0x10^3/uL (0.0-0.2) Sodium Level 145mmol/L (136-145) Potassium Level 3.7mmol/L (3.5-5.1) Chloride Level 109mmol/L (98-107) Carbon Dioxide Level 29mmol/L (21-32) Anion Gap 7 (6-14) Blood Urea Nitrogen 24mg/dL (7-20) Creatinine 1.1mg/dL (0.6-1.0) Estimated GFR (Cockcroft-Gault) 50.2 Glucose Level 111mg/dL (70-99) Calcium Level 7.9mg/dL (8.5-10.1) Magnesium Level 2.1mg/dL (1.8-2.4) Review of Systems Review of Systems intub.ed, sedated PADDY MODI MD Jun 05, 2016 11:13
[2016-06-05] MEDS: CHLORHEXIDINE 0.12% 15 ML MOUTHWASH. MM SCH ×2 (11:27→21:00)
[2016-06-05] MEDS: ASPIRIN CHEWABLE 81 MG TABLET. PO SCH (11:28)
[2016-06-05] MEDS: rOPINIRole 1 MG TABLET. PO SCH ×2 (11:28→21:00)
[2016-06-05] MEDS: ROFLUMILAST 500 MCG TABLET. PO SCH (11:28)
[2016-06-05] MEDS: AMLODIPINE BESYLATE 5 MG TABLET. PO SCH (11:28)
[2016-06-05] MEDS: LEVOTHYROXINE SODIUM 50 MCG in IV NORMAL SALINE 50ML 5 ML IVP SCH (11:30)
[2016-06-05] MEDS: FAMOTIDINE 20 MG/2 ML VIAL IVP SCH (11:31)
[2016-06-05] MEDS: ENOXAPARIN 40 MG/0.4 ML SYRINGE. SQ SCH ×2 (11:33→21:29)
[2016-06-05] MEDS: POTASSIUM CHLORIDE 10MEQ 100 ML IV SCH ×2 (11:40→18:43)
[2016-06-05 13:40] LABS: HCO3 ABG 28 mmol/L (21-28); PCO2 ABG 56 mmHg (35-46); PH ABG 7.31 (7.35-7.45); PO2 ABG 92 mmHg (65-108); SAT O2 ABG 96 % (92-99)
[2016-06-05 13:46] LABS: FIO2 ABG 40
[2016-06-05] MEDS ORDERED: LORAZEPAM 1 MG TABLET. PO ONE (15:00)
[2016-06-05] MEDS: FENTANYL PF 100 MCG/2 ML VIAL. IV PRN ×3 (19:38→23:18)
[2016-06-05] MEDS: ATORVASTATIN CALCIUM 20 MG TABLET PO SCH (21:00)
[2016-06-05] MEDS: LORAZEPAM 2 MG/ML VIAL. IV PRN (21:29)
[2016-06-05] MEDS: hydrALAZINE 20 MG/ML VIAL. IVP PRN (21:31)
[2016-06-05] MEDS: ALBUTEROL SULFATE 2.5 MG/3 ML NEBU. IH PRN (23:29)
[2016-06-06] VITALS (24 sets, daily range): BP systolic 95–201; BP diastolic 51–105
[2016-06-06] MEDS ORDERED: ENALAPRILAT 2.5 MG/2 ML VIAL. IV ONE (00:30)
[2016-06-06] MEDS ORDERED: IV NORMAL SALINE 500ML BAG 500 ML IV ONE (00:30)
[2016-06-06] MEDS: FENTANYL PF 100 MCG/2 ML VIAL. IV PRN ×3 (01:39→05:17)
[2016-06-06] MEDS: PIPERACILLIN/TAZOBACTAM 4.5 GM in IV NORMAL SALINE 100ML 100 ML IV SCH ×2 (05:10→12:00)
[2016-06-06 05:34] LABS: BASO # 0.1 x10^3/uL (0.0-0.2); BASO % 0 % (0-3); EOS % 1 % (0-3); HEMATOCRIT 42.5 % (36.0-47.0); HEMOGLOBIN 13.5 g/dL (12.0-15.5); LYMPH # 0.4 x10^3/uL (1.0-4.8); LYMPH % 2 % (24-48); MEAN CORPUSCULAR HEMOGLOBIN 31 pg (25-35); MEAN CORPUSCULAR HGB CONC 32 g/dL (31-37); MEAN CORPUSCULAR VOLUME 96 fL (79-100); MONO % 6 % (0-9); NEUT % 90 % (31-73); PLATELET COUNT 222 x10^3/uL (140-400); RED BLOOD COUNT 4.43 x10^6/uL (3.50-5.40); RED CELL DISTRIBUTION WIDTH 14.7 % (11.5-14.5)
[2016-06-06 05:58] LABS: CALCIUM 8.9 mg/dL (8.5-10.1); MAGNESIUM 1.9 mg/dL (1.8-2.4); POTASSIUM 4.1 mmol/L (3.5-5.1)
--- NOTE | 2016-06-06 07:37 | PDOC ---
PULMONARY PROGRESS NOTES Subjective on bipap, has sob, cough, no cp, is tachypneac Vitals Vital Signs Date Time Temp Pulse Resp B/P Pulse Ox O2 Delivery O2 Flow Rate FiO2 06/06/16 06:00 112 20 160/88 99 BiPAP/CPAP 06/06/16 04:00 8.0 06/06/16 04:00 98.7 98.7 Comments ros as mentioned as above other sys otherwise neg. ROS: No Nausea General: Alert HEENT: Other (nc at perrl bipap mask on neck no lap thyromegaly) Lungs: Wheezing Cardiovascular: S1, S2 Abdomen: Soft, Non-tender, Other Neuro Exam: Alert Extremities: No Edema Skin: Warm Labs Laboratory Tests Test 06/04/16 08:00 06/04/16 09:59 06/04/16 12:12 06/04/16 18:17 O2 Saturation 98% (92-99) 95% (92-99) Arterial Blood pH 7.35 (7.35-7.45) 7.28 (7.35-7.45) Arterial Blood pCO2 at Patient Temp 47mmHg (35-46) 62mmHg (35-46) Arterial Blood pO2 at Patient Temp 126mmHg (65-108) 83mmHg (65-108) Arterial Blood HCO3 25mmol/L (21-28) 28mmol/L (21-28) Arterial Blood Base Excess 0mmol/L (-3-3) 0mmol/L (-3-3) FiO2 40 40 Glucose (Fingerstick) 114mg/dL (70-99) 107mg/dL (70-99) Test 06/05/16 08:00 06/05/16 09:00 06/05/16 11:08 06/05/16 12:30 O2 Saturation 98% (92-99) 96% (92-99) Arterial Blood pH 7.39 (7.35-7.45) 7.31 (7.35-7.45) Arterial Blood pCO2 at Patient Temp 42mmHg (35-46) 56mmHg (35-46) Arterial Blood pO2 at Patient Temp 103mmHg (65-108) 92mmHg (65-108) Arterial Blood HCO3 25mmol/L (21-28) 28mmol/L (21-28) Arterial Blood Base Excess 0mmol/L (-3-3) 0mmol/L (-3-3) FiO2 35 40 White Blood Count 10.1x10^3/uL (4.0-11.0) Red Blood Count 3.67x10^6/uL (3.50-5.40) Hemoglobin 11.4g/dL (12.0-15.5) Hematocrit 35.4% (36.0-47.0) Mean Corpuscular Volume 97fL (79-100) Mean Corpuscular Hemoglobin 31pg (25-35) Mean Corpuscular Hemoglobin Concent 32g/dL (31-37) Red Cell Distribution Width 14.4% (11.5-14.5) Platelet Count 140x10^3/uL (140-400) Neutrophils (%) (Auto) 77% (31-73) Lymphocytes (%) (Auto) 8% (24-48) Monocytes (%) (Auto) 13% (0-9) Eosinophils (%) (Auto) 2% (0-3) Basophils (%) (Auto) 0% (0-3) Neutrophils # (Auto) 7.8x10^3uL (1.8-7.7) Lymphocytes # (Auto) 0.8x10^3/uL (1.0-4.8) Monocytes # (Auto) 1.3x10^3/uL (0.0-1.1) Eosinophils # (Auto) 0.2x10^3/uL (0.0-0.7) Basophils # (Auto) 0.0x10^3/uL (0.0-0.2) Sodium Level 145mmol/L (136-145) Potassium Level 3.7mmol/L (3.5-5.1) Chloride Level 109mmol/L (98-107) Carbon Dioxide Level 29mmol/L (21-32) Anion Gap 7 (6-14) Blood Urea Nitrogen 24mg/dL (7-20) Creatinine 1.1mg/dL (0.6-1.0) Estimated GFR (Cockcroft-Gault) 50.2 Glucose Level 111mg/dL (70-99) Calcium Level 7.9mg/dL (8.5-10.1) Magnesium Level 2.1mg/dL (1.8-2.4) Glucose (Fingerstick) 100mg/dL (70-99) Test 06/05/16 18:45 06/06/16 05:15 Glucose (Fingerstick) 89mg/dL (70-99) White Blood Count 16.0x10^3/uL (4.0-11.0) Red Blood Count 4.43x10^6/uL (3.50-5.40) Hemoglobin 13.5g/dL (12.0-15.5) Hematocrit 42.5% (36.0-47.0) Mean Corpuscular Volume 96fL (79-100) Mean Corpuscular Hemoglobin 31pg (25-35) Mean Corpuscular Hemoglobin Concent 32g/dL (31-37) Red Cell Distribution Width 14.7% (11.5-14.5) Platelet Count 222x10^3/uL (140-400) Neutrophils (%) (Auto) 90% (31-73) Lymphocytes (%) (Auto) 2% (24-48) Monocytes (%) (Auto) 6% (0-9) Eosinophils (%) (Auto) 1% (0-3) Basophils (%) (Auto) 0% (0-3) Neutrophils # (Auto) 14.4x10^3uL (1.8-7.7) Lymphocytes # (Auto) 0.4x10^3/uL (1.0-4.8) Monocytes # (Auto) 1.0x10^3/uL (0.0-1.1) Eosinophils # (Auto) 0.1x10^3/uL (0.0-0.7) Basophils # (Auto) 0.1x10^3/uL (0.0-0.2) Sodium Level 148mmol/L (136-145) Potassium Level 4.1mmol/L (3.5-5.1) Chloride Level 109mmol/L (98-107) Carbon Dioxide Level 29mmol/L (21-32) Anion Gap 10 (6-14) Blood Urea Nitrogen 14mg/dL (7-20) Creatinine 1.0mg/dL (0.6-1.0) Estimated GFR (Cockcroft-Gault) 56.0 Glucose Level 124mg/dL (70-99) Calcium Level 8.9mg/dL (8.5-10.1) Magnesium Level 1.9mg/dL (1.8-2.4) Laboratory Tests Test 06/05/16 08:00 06/05/16 09:00 06/05/16 11:08 06/05/16 12:30 O2 Saturation 98% (92-99) 96% (92-99) Arterial Blood pH 7.39 (7.35-7.45) 7.31 (7.35-7.45) Arterial Blood pCO2 at Patient Temp 42mmHg (35-46) 56mmHg (35-46) Arterial Blood pO2 at Patient Temp 103mmHg (65-108) 92mmHg (65-108) Arterial Blood HCO3 25mmol/L (21-28) 28mmol/L (21-28) Arterial Blood Base Excess 0mmol/L (-3-3) 0mmol/L (-3-3) FiO2 35 40 White Blood Count 10.1x10^3/uL (4.0-11.0) Red Blood Count 3.67x10^6/uL (3.50-5.40) Hemoglobin 11.4g/dL (12.0-15.5) Hematocrit 35.4% (36.0-47.0) Mean Corpuscular Volume 97fL (79-100) Mean Corpuscular Hemoglobin 31pg (25-35) Mean Corpuscular Hemoglobin Concent 32g/dL (31-37) Red Cell Distribution Width 14.4% (11.5-14.5) Platelet Count 140x10^3/uL (140-400) Neutrophils (%) (Auto) 77% (31-73) Lymphocytes (%) (Auto) 8% (24-48) Monocytes (%) (Auto) 13% (0-9) Eosinophils (%) (Auto) 2% (0-3) Basophils (%) (Auto) 0% (0-3) Neutrophils # (Auto) 7.8x10^3uL (1.8-7.7) Lymphocytes # (Auto) 0.8x10^3/uL (1.0-4.8) Monocytes # (Auto) 1.3x10^3/uL (0.0-1.1) Eosinophils # (Auto) 0.2x10^3/uL (0.0-0.7) Basophils # (Auto) 0.0x10^3/uL (0.0-0.2) Sodium Level 145mmol/L (136-145) Potassium Level 3.7mmol/L (3.5-5.1) Chloride Level 109mmol/L (98-107) Carbon Dioxide Level 29mmol/L (21-32) Anion Gap 7 (6-14) Blood Urea Nitrogen 24mg/dL (7-20) Creatinine 1.1mg/dL (0.6-1.0) Estimated GFR (Cockcroft-Gault) 50.2 Glucose Level 111mg/dL (70-99) Calcium Level 7.9mg/dL (8.5-10.1) Magnesium Level 2.1mg/dL (1.8-2.4) Glucose (Fingerstick) 100mg/dL (70-99) Test 06/05/16 18:45 06/06/16 05:15 Glucose (Fingerstick) 89mg/dL (70-99) White Blood Count 16.0x10^3/uL (4.0-11.0) Red Blood Count 4.43x10^6/uL (3.50-5.40) Hemoglobin 13.5g/dL (12.0-15.5) Hematocrit 42.5% (36.0-47.0) Mean Corpuscular Volume 96fL (79-100) Mean Corpuscular Hemoglobin 31pg (25-35) Mean Corpuscular Hemoglobin Concent 32g/dL (31-37) Red Cell Distribution Width 14.7% (11.5-14.5) Platelet Count 222x10^3/uL (140-400) Neutrophils (%) (Auto) 90% (31-73) Lymphocytes (%) (Auto) 2% (24-48) Monocytes (%) (Auto) 6% (0-9) Eosinophils (%) (Auto) 1% (0-3) Basophils (%) (Auto) 0% (0-3) Neutrophils # (Auto) 14.4x10^3uL (1.8-7.7) Lymphocytes # (Auto) 0.4x10^3/uL (1.0-4.8) Monocytes # (Auto) 1.0x10^3/uL (0.0-1.1) Eosinophils # (Auto) 0.1x10^3/uL (0.0-0.7) Basophils # (Auto) 0.1x10^3/uL (0.0-0.2) Sodium Level 148mmol/L (136-145) Potassium Level 4.1mmol/L (3.5-5.1) Chloride Level 109mmol/L (98-107) Carbon Dioxide Level 29mmol/L (21-32) Anion Gap 10 (6-14) Blood Urea Nitrogen 14mg/dL (7-20) Creatinine 1.0mg/dL (0.6-1.0) Estimated GFR (Cockcroft-Gault) 56.0 Glucose Level 124mg/dL (70-99) Calcium Level 8.9mg/dL (8.5-10.1) Magnesium Level 1.9mg/dL (1.8-2.4) Medications Active Scripts Medications Dose Route/Sig Days Date Category Ropinirole Hcl 1 Mg Tablet 1 Mg PO BID 02/24/16 Reported Daliresp (Roflumilast) 500 Mcg Tablet 500 Mcg PO DAILY 11/16/14 Reported Albuterol Sulfate Conc Neb Soln (Albuterol Sulfate) 2.5 Mg/0.5 Ml Vial.neb 2.5 Mg NEB QID 11/16/14 Reported Singulair Tablet (Montelukast Sodium) 10 Mg Tablet 10 Mg PO HS 11/16/14 Reported Ranitidine Hcl 300 Mg Tablet 300 Mg PO BID 11/16/14 Reported Tums (Calcium Carbonate) 200 Mg Tab.chew 400 Mg PO PRN Q6HRS PRN 11/16/14 Reported Vitamin D2 (Ergocalciferol (Vitamin D2)) 50,000 Unit Capsule 50,000 Unit PO QSU 11/16/14 Reported Zyrtec (Cetirizine Hcl) 10 Mg Capsule 10 Mg PO DAILY 04/21/14 Reported Multivitamins (Multivitamin) 1 Each Capsule 1 Each PO DAILY 04/21/14 Reported Lumigan (Bimatoprost) 2.5 Ml Drops 1 Drop EACHEYE QHS 04/21/14 Reported Melatonin 3 Mg Tablet 10 Mg PO QHS 04/21/14 Reported Atorvastatin Calcium 20 Mg Tablet 20 Mg PO HS 04/21/14 Reported Amlodipine Besylate 5 Mg Tablet 1 Tab PO DAILY 04/21/14 Reported Levothyroxine Sodium 100 Mcg Tablet 100 Mcg PO DAILY06 04/21/14 Reported Fluticasone Propionate Nasal Wayne (Fluticasone Propionate) 16 Gm Wayne.susp 2 Wayne NS BID 04/21/14 Reported Azathioprine 50 Mg Tablet 50 Mg PO HS 04/21/14 Reported Docusate Sodium 100 Mg Capsule 100 Mg PO PRN BID 05/03/13 Reported Alprazolam 0.5 Mg Tablet 0.5 Mg PO TID 05/03/13 Reported Gabapentin 300 Mg Capsule 300 Mg PO BID 05/03/13 Reported Albuterol Sulfate Hfa Inhaler (Albuterol Sulfate) 8.5 Gm Hfa.aer.ad 8.5 Gm IH PRN PRN 05/03/13 Reported Aspirin 81 Mg Tab.chew 81 Mg PO DAILY 05/03/13 Reported Hydrocodone-Apap 7.5-325 (Hydrocodone Bit/Acetaminophen) 1 Each Tablet 1-2 Each PO PRN QID PRN 05/03/13 Reported Celexa (Citalopram Hydrobromide) 10 Mg Tablet 20 Mg PO HS 05/03/13 Reported Azathioprine 50 Mg Tablet 100 Mg PO DAILY08 05/03/13 Reported Alendronate Sodium 70 Mg Tablet 70 Mg PO QSU 05/03/13 Reported Comments cxr reviewed. no acute cardiopulmonary abnormality is detected. Impression . 1. [id number] respiratory failure. 2. Acute exacerbation of chronic obstructive pulmonary disease, suspect viral. 3. Fever. 4. Severe chronic obstructive pulmonary disease with previous pneumothoraces requiring endobronchial valve placement. 5. Interstitial lung disease. 6. Hypertension. 7. Type 2 diabetes. 8. Acute kidney injury with anuria. Plan . cont bipap until more stable, setting reviewed 1. start solumedrol 2. follow nephro input 3. continue antibiotics 4. increase bronchodilator, add icx 5. Continue home medications. 6. Deep venous thrombosis and gastrointestinal prophylaxis. discussed w rn, rt SHANA CARLSON MD Jun 06, 2016 07:37
[2016-06-06] MEDS: INSULIN ASPART 300 UNITS/3 ML INSULN.PEN SQ SCH ×3 (08:00→17:00)
[2016-06-06] MEDS: hydrALAZINE 20 MG/ML VIAL. IVP PRN ×2 (08:12→20:53)
[2016-06-06] MEDS: IPRATRPIUM/ALBUTEROL 0.5/2.5MG 3 ML NEBU. NEB SCH ×5 (08:28→23:50)
[2016-06-06] MEDS: BUDESONIDE 0.5 MG/2 ML NEBU. NEB SCH ×2 (08:28→20:07)
[2016-06-06] MEDS: ENOXAPARIN 40 MG/0.4 ML SYRINGE. SQ SCH ×2 (08:45→20:53)
[2016-06-06] MEDS: FAMOTIDINE 20 MG/2 ML VIAL IVP SCH (08:45)
[2016-06-06] MEDS: CHLORHEXIDINE 0.12% 15 ML MOUTHWASH. MM SCH (08:46)
[2016-06-06] MEDS: LEVOTHYROXINE SODIUM 50 MCG in IV NORMAL SALINE 50ML 5 ML IVP SCH (08:46)
[2016-06-06] MEDS: ROFLUMILAST 500 MCG TABLET. PO SCH (09:00)
[2016-06-06] MEDS: rOPINIRole 1 MG TABLET. PO SCH ×2 (09:00→20:43)
[2016-06-06] MEDS: ASPIRIN CHEWABLE 81 MG TABLET. PO SCH (09:00)
[2016-06-06] MEDS: AMLODIPINE BESYLATE 5 MG TABLET. PO SCH (09:00)
[2016-06-06 10:24] LABS: HCO3 ABG 29 mmol/L (21-28); PH ABG 7.26 (7.35-7.45); PO2 ABG 96 mmHg (65-108); SAT O2 ABG 97 % (92-99)
[2016-06-06 10:27] LABS: FIO2 ABG 40; PCO2 ABG 66 mmHg (35-46)
--- NOTE | 2016-06-06 10:36 | PDOC ---
PROGRESS NOTES Chief Complaint Chief Complaint Acute respir failure ASSESSMENT AND PLAN: 1. COPD exacerbation: extubated last PM, on BiPAP since. tiring with labor of breathing. switch fentany to morphine for air hunger. steroids, nebs. switch zosyn to levaquin for bronchitis 2. Pulm fibrosis 3. DM: well controlled, on ISS. no home meds; suspect borderline, unmasked by steroids. HgbA1c 5.6 4. Hypothyroidism: on synthroid (IV) 5. HTN: borderline control w/ difficult oral intake with BiPAP. hydralazine PRN 6. HLD: on statin 7. Hypernatremia: recurrent. had copious fluid output O/N; replete fluid 8. Hypokalemia: resolved. monitor 9. LEONID: suspect resolved. creat stable at CKD3 range 10. Nutrition: OG feeds 11. Prophylaxis: lovenox, H2B CC time: 35 min Vitals Vitals Vital Signs Date Time Temp Pulse Resp B/P Pulse Ox O2 Delivery O2 Flow Rate FiO2 06/06/16 09:00 108 22 157/67 97 BiPAP/CPAP 06/06/16 07:48 8.0 06/06/16 07:00 99.3 99.3 Physical Exam General: Alert, Cooperative, No acute distress Heart: Other (tachycardic) Lungs: Clear, Other (on BiPAP) Abdomen: Normal bowel sounds Extremities: No clubbing Skin: No breakdown Labs LABS Laboratory Tests Test 06/05/16 11:08 06/05/16 12:30 06/05/16 18:45 06/06/16 05:15 Glucose (Fingerstick) 100mg/dL (70-99) 89mg/dL (70-99) O2 Saturation 96% (92-99) Arterial Blood pH 7.31 (7.35-7.45) Arterial Blood pCO2 at Patient Temp 56mmHg (35-46) Arterial Blood pO2 at Patient Temp 92mmHg (65-108) Arterial Blood HCO3 28mmol/L (21-28) Arterial Blood Base Excess 0mmol/L (-3-3) FiO2 40 White Blood Count 16.0x10^3/uL (4.0-11.0) Red Blood Count 4.43x10^6/uL (3.50-5.40) Hemoglobin 13.5g/dL (12.0-15.5) Hematocrit 42.5% (36.0-47.0) Mean Corpuscular Volume 96fL (79-100) Mean Corpuscular Hemoglobin 31pg (25-35) Mean Corpuscular Hemoglobin Concent 32g/dL (31-37) Red Cell Distribution Width 14.7% (11.5-14.5) Platelet Count 222x10^3/uL (140-400) Neutrophils (%) (Auto) 90% (31-73) Lymphocytes (%) (Auto) 2% (24-48) Monocytes (%) (Auto) 6% (0-9) Eosinophils (%) (Auto) 1% (0-3) Basophils (%) (Auto) 0% (0-3) Neutrophils # (Auto) 14.4x10^3uL (1.8-7.7) Lymphocytes # (Auto) 0.4x10^3/uL (1.0-4.8) Monocytes # (Auto) 1.0x10^3/uL (0.0-1.1) Eosinophils # (Auto) 0.1x10^3/uL (0.0-0.7) Basophils # (Auto) 0.1x10^3/uL (0.0-0.2) Sodium Level 148mmol/L (136-145) Potassium Level 4.1mmol/L (3.5-5.1) Chloride Level 109mmol/L (98-107) Carbon Dioxide Level 29mmol/L (21-32) Anion Gap 10 (6-14) Blood Urea Nitrogen 14mg/dL (7-20) Creatinine 1.0mg/dL (0.6-1.0) Estimated GFR (Cockcroft-Gault) 56.0 Glucose Level 124mg/dL (70-99) Calcium Level 8.9mg/dL (8.5-10.1) Magnesium Level 1.9mg/dL (1.8-2.4) Test 06/06/16 07:20 Glucose (Fingerstick) 110mg/dL (70-99) Review of Systems Review of Systems awake, responding with head movement. PADDY Noriega MD Jun 06, 2016 10:36
[2016-06-06] MEDS ORDERED: IV 1/2 NORMAL SALINE 1,000 ML IV ONE (10:45)
[2016-06-06] MEDS: MORPHINE SULFATE 2 MG/ML DISP.SYRIN. IV PRN ×3 (10:57→21:21)
[2016-06-06] MEDS: LORAZEPAM 2 MG/ML VIAL. IV PRN ×2 (11:14→23:32)
[2016-06-06] MEDS: methylPREDNISolone SOD SUCC PF 40 MG/ML VIAL. IV SCH ×2 (13:41→20:54)
[2016-06-06] MEDS: ATORVASTATIN CALCIUM 20 MG TABLET PO SCH (20:43)
[2016-06-06] MEDS: ALBUTEROL SULFATE 2.5 MG/3 ML NEBU. IH PRN (21:27)
[2016-06-07] VITALS (24 sets, daily range): BP systolic 142–186; BP diastolic 68–113
[2016-06-07] MEDS: IPRATRPIUM/ALBUTEROL 0.5/2.5MG 3 ML NEBU. NEB SCH ×6 (04:06→23:01)
--- NOTE | 2016-06-07 05:06 | PDOC ---
PULMONARY PROGRESS NOTES Subjective on bipap, has sob, cough, no cp, is less tachypneac Vitals Vital Signs Date Time Temp Pulse Resp B/P Pulse Ox O2 Delivery O2 Flow Rate FiO2 06/07/16 04:08 97 BiPAP/CPAP 06/07/16 04:01 8.0 06/07/16 04:00 99.4 98 17 161/94 99.4 Comments ros as mentioned as above other sys otherwise neg. ROS: No Nausea General: Alert HEENT: Other (nc at perrl bipap mask on neck no lap thyromegaly) Lungs: Clear, Other (on BiPAP) Cardiovascular: S1, S2 Abdomen: Soft, Non-tender, Other Neuro Exam: Alert Extremities: No Edema Skin: Warm Labs Laboratory Tests Test 06/05/16 08:00 06/05/16 09:00 06/05/16 11:08 06/05/16 12:30 O2 Saturation 98% (92-99) 96% (92-99) Arterial Blood pH 7.39 (7.35-7.45) 7.31 (7.35-7.45) Arterial Blood pCO2 at Patient Temp 42mmHg (35-46) 56mmHg (35-46) Arterial Blood pO2 at Patient Temp 103mmHg (65-108) 92mmHg (65-108) Arterial Blood HCO3 25mmol/L (21-28) 28mmol/L (21-28) Arterial Blood Base Excess 0mmol/L (-3-3) 0mmol/L (-3-3) FiO2 35 40 White Blood Count 10.1x10^3/uL (4.0-11.0) Red Blood Count 3.67x10^6/uL (3.50-5.40) Hemoglobin 11.4g/dL (12.0-15.5) Hematocrit 35.4% (36.0-47.0) Mean Corpuscular Volume 97fL (79-100) Mean Corpuscular Hemoglobin 31pg (25-35) Mean Corpuscular Hemoglobin Concent 32g/dL (31-37) Red Cell Distribution Width 14.4% (11.5-14.5) Platelet Count 140x10^3/uL (140-400) Neutrophils (%) (Auto) 77% (31-73) Lymphocytes (%) (Auto) 8% (24-48) Monocytes (%) (Auto) 13% (0-9) Eosinophils (%) (Auto) 2% (0-3) Basophils (%) (Auto) 0% (0-3) Neutrophils # (Auto) 7.8x10^3uL (1.8-7.7) Lymphocytes # (Auto) 0.8x10^3/uL (1.0-4.8) Monocytes # (Auto) 1.3x10^3/uL (0.0-1.1) Eosinophils # (Auto) 0.2x10^3/uL (0.0-0.7) Basophils # (Auto) 0.0x10^3/uL (0.0-0.2) Sodium Level 145mmol/L (136-145) Potassium Level 3.7mmol/L (3.5-5.1) Chloride Level 109mmol/L (98-107) Carbon Dioxide Level 29mmol/L (21-32) Anion Gap 7 (6-14) Blood Urea Nitrogen 24mg/dL (7-20) Creatinine 1.1mg/dL (0.6-1.0) Estimated GFR (Cockcroft-Gault) 50.2 Glucose Level 111mg/dL (70-99) Calcium Level 7.9mg/dL (8.5-10.1) Magnesium Level 2.1mg/dL (1.8-2.4) Glucose (Fingerstick) 100mg/dL (70-99) Test 06/05/16 18:45 06/06/16 05:15 06/06/16 07:20 06/06/16 08:00 Glucose (Fingerstick) 89mg/dL (70-99) 110mg/dL (70-99) White Blood Count 16.0x10^3/uL (4.0-11.0) Red Blood Count 4.43x10^6/uL (3.50-5.40) Hemoglobin 13.5g/dL (12.0-15.5) Hematocrit 42.5% (36.0-47.0) Mean Corpuscular Volume 96fL (79-100) Mean Corpuscular Hemoglobin 31pg (25-35) Mean Corpuscular Hemoglobin Concent 32g/dL (31-37) Red Cell Distribution Width 14.7% (11.5-14.5) Platelet Count 222x10^3/uL (140-400) Neutrophils (%) (Auto) 90% (31-73) Lymphocytes (%) (Auto) 2% (24-48) Monocytes (%) (Auto) 6% (0-9) Eosinophils (%) (Auto) 1% (0-3) Basophils (%) (Auto) 0% (0-3) Neutrophils # (Auto) 14.4x10^3uL (1.8-7.7) Lymphocytes # (Auto) 0.4x10^3/uL (1.0-4.8) Monocytes # (Auto) 1.0x10^3/uL (0.0-1.1) Eosinophils # (Auto) 0.1x10^3/uL (0.0-0.7) Basophils # (Auto) 0.1x10^3/uL (0.0-0.2) Sodium Level 148mmol/L (136-145) Potassium Level 4.1mmol/L (3.5-5.1) Chloride Level 109mmol/L (98-107) Carbon Dioxide Level 29mmol/L (21-32) Anion Gap 10 (6-14) Blood Urea Nitrogen 14mg/dL (7-20) Creatinine 1.0mg/dL (0.6-1.0) Estimated GFR (Cockcroft-Gault) 56.0 Glucose Level 124mg/dL (70-99) Calcium Level 8.9mg/dL (8.5-10.1) Magnesium Level 1.9mg/dL (1.8-2.4) O2 Saturation 97% (92-99) Arterial Blood pH 7.26 (7.35-7.45) Arterial Blood pCO2 at Patient Temp 66mmHg (35-46) Arterial Blood pO2 at Patient Temp 96mmHg (65-108) Arterial Blood HCO3 29mmol/L (21-28) Arterial Blood Base Excess 0mmol/L (-3-3) FiO2 40 Test 06/06/16 11:56 06/06/16 17:34 Glucose (Fingerstick) 104mg/dL (70-99) 113mg/dL (70-99) Laboratory Tests Test 06/06/16 05:15 06/06/16 07:20 06/06/16 08:00 06/06/16 11:56 White Blood Count 16.0x10^3/uL (4.0-11.0) Red Blood Count 4.43x10^6/uL (3.50-5.40) Hemoglobin 13.5g/dL (12.0-15.5) Hematocrit 42.5% (36.0-47.0) Mean Corpuscular Volume 96fL (79-100) Mean Corpuscular Hemoglobin 31pg (25-35) Mean Corpuscular Hemoglobin Concent 32g/dL (31-37) Red Cell Distribution Width 14.7% (11.5-14.5) Platelet Count 222x10^3/uL (140-400) Neutrophils (%) (Auto) 90% (31-73) Lymphocytes (%) (Auto) 2% (24-48) Monocytes (%) (Auto) 6% (0-9) Eosinophils (%) (Auto) 1% (0-3) Basophils (%) (Auto) 0% (0-3) Neutrophils # (Auto) 14.4x10^3uL (1.8-7.7) Lymphocytes # (Auto) 0.4x10^3/uL (1.0-4.8) Monocytes # (Auto) 1.0x10^3/uL (0.0-1.1) Eosinophils # (Auto) 0.1x10^3/uL (0.0-0.7) Basophils # (Auto) 0.1x10^3/uL (0.0-0.2) Sodium Level 148mmol/L (136-145) Potassium Level 4.1mmol/L (3.5-5.1) Chloride Level 109mmol/L (98-107) Carbon Dioxide Level 29mmol/L (21-32) Anion Gap 10 (6-14) Blood Urea Nitrogen 14mg/dL (7-20) Creatinine 1.0mg/dL (0.6-1.0) Estimated GFR (Cockcroft-Gault) 56.0 Glucose Level 124mg/dL (70-99) Calcium Level 8.9mg/dL (8.5-10.1) Magnesium Level 1.9mg/dL (1.8-2.4) Glucose (Fingerstick) 110mg/dL (70-99) 104mg/dL (70-99) O2 Saturation 97% (92-99) Arterial Blood pH 7.26 (7.35-7.45) Arterial Blood pCO2 at Patient Temp 66mmHg (35-46) Arterial Blood pO2 at Patient Temp 96mmHg (65-108) Arterial Blood HCO3 29mmol/L (21-28) Arterial Blood Base Excess 0mmol/L (-3-3) FiO2 40 Test 06/06/16 17:34 Glucose (Fingerstick) 113mg/dL (70-99) Medications Active Scripts Medications Dose Route/Sig Days Date Category Ropinirole Hcl 1 Mg Tablet 1 Mg PO BID 02/24/16 Reported Daliresp (Roflumilast) 500 Mcg Tablet 500 Mcg PO DAILY 11/16/14 Reported Albuterol Sulfate Conc Neb Soln (Albuterol Sulfate) 2.5 Mg/0.5 Ml Vial.neb 2.5 Mg NEB QID 11/16/14 Reported Singulair Tablet (Montelukast Sodium) 10 Mg Tablet 10 Mg PO HS 11/16/14 Reported Ranitidine Hcl 300 Mg Tablet 300 Mg PO BID 11/16/14 Reported Tums (Calcium Carbonate) 200 Mg Tab.chew 400 Mg PO PRN Q6HRS PRN 11/16/14 Reported Vitamin D2 (Ergocalciferol (Vitamin D2)) 50,000 Unit Capsule 50,000 Unit PO QSU 11/16/14 Reported Zyrtec (Cetirizine Hcl) 10 Mg Capsule 10 Mg PO DAILY 04/21/14 Reported Multivitamins (Multivitamin) 1 Each Capsule 1 Each PO DAILY 04/21/14 Reported Lumigan (Bimatoprost) 2.5 Ml Drops 1 Drop EACHEYE QHS 04/21/14 Reported Melatonin 3 Mg Tablet 10 Mg PO QHS 04/21/14 Reported Atorvastatin Calcium 20 Mg Tablet 20 Mg PO HS 04/21/14 Reported Amlodipine Besylate 5 Mg Tablet 1 Tab PO DAILY 04/21/14 Reported Levothyroxine Sodium 100 Mcg Tablet 100 Mcg PO DAILY06 04/21/14 Reported Fluticasone Propionate Nasal [place] (Fluticasone Propionate) 16 Gm [place].susp 2 [place] NS BID 04/21/14 Reported Azathioprine 50 Mg Tablet 50 Mg PO HS 04/21/14 Reported Docusate Sodium 100 Mg Capsule 100 Mg PO PRN BID 05/03/13 Reported Alprazolam 0.5 Mg Tablet 0.5 Mg PO TID 05/03/13 Reported Gabapentin 300 Mg Capsule 300 Mg PO BID 05/03/13 Reported Albuterol Sulfate Hfa Inhaler (Albuterol Sulfate) 8.5 Gm Hfa.aer.ad 8.5 Gm IH PRN PRN 05/03/13 Reported Aspirin 81 Mg Tab.chew 81 Mg PO DAILY 05/03/13 Reported Hydrocodone-Apap 7.5-325 (Hydrocodone Bit/Acetaminophen) 1 Each Tablet 1-2 Each PO PRN QID PRN 05/03/13 Reported Celexa (Citalopram Hydrobromide) 10 Mg Tablet 20 Mg PO HS 05/03/13 Reported Azathioprine 50 Mg Tablet 100 Mg PO DAILY08 05/03/13 Reported Alendronate Sodium 70 Mg Tablet 70 Mg PO QSU 05/03/13 Reported Comments cxr reviewed. no acute cardiopulmonary abnormality is detected. Impression . 1. [id number] respiratory failure. 2. Acute exacerbation of chronic obstructive pulmonary disease, suspect viral. 3. Fever. 4. Severe chronic obstructive pulmonary disease with previous pneumothoraces requiring endobronchial valve placement. 5. Interstitial lung disease. 6. Hypertension. 7. Type 2 diabetes. 8. Acute kidney injury with anuria. Plan . cont bipap until more stable, setting reviewed, took her off bipap, rr increased , will put her back on bipap and monitor in icu 1. cont solumedrol no change in dose 2. follow nephro input 3. continue antibiotics 4. bronchodilator, icx 5. Continue home medications. 6. Deep venous thrombosis and gastrointestinal prophylaxis. discussed w pt, rn, rt SHANA CARLSON MD Jun 07, 2016 05:06
[2016-06-07] MEDS: hydrALAZINE 20 MG/ML VIAL. IVP PRN ×2 (05:12→13:23)
[2016-06-07] MEDS: MORPHINE SULFATE 2 MG/ML DISP.SYRIN. IV PRN ×3 (05:12→20:56)
[2016-06-07] MEDS: methylPREDNISolone SOD SUCC PF 40 MG/ML VIAL. IV SCH ×2 (05:12→20:56)
[2016-06-07 05:55] LABS: BASO % 0 % (0-3); EOS % 0 % (0-3); HEMATOCRIT 41.3 % (36.0-47.0); HEMOGLOBIN 13.1 g/dL (12.0-15.5); LYMPH # 0.3 x10^3/uL (1.0-4.8); LYMPH % 3 % (24-48); MEAN CORPUSCULAR HEMOGLOBIN 31 pg (25-35); MEAN CORPUSCULAR HGB CONC 32 g/dL (31-37); MEAN CORPUSCULAR VOLUME 97 fL (79-100); MONO % 2 % (0-9); NEUT % 95 % (31-73); PLATELET COUNT 235 x10^3/uL (140-400); RED BLOOD COUNT 4.26 x10^6/uL (3.50-5.40); RED CELL DISTRIBUTION WIDTH 14.8 % (11.5-14.5); WHITE BLOOD COUNT 8.9 x10^3/uL (4.0-11.0)
[2016-06-07 06:39] LABS: CALCIUM 9.4 mg/dL (8.5-10.1); POTASSIUM 4.8 mmol/L (3.5-5.1)
[2016-06-07] MEDS: BUDESONIDE 0.5 MG/2 ML NEBU. NEB SCH ×2 (07:34→19:37)
[2016-06-07] MEDS: INSULIN ASPART 300 UNITS/3 ML INSULN.PEN SQ SCH (08:00)
[2016-06-07] MEDS: rOPINIRole 1 MG TABLET. PO SCH ×2 (08:03→19:51)
[2016-06-07] MEDS: ROFLUMILAST 500 MCG TABLET. PO SCH (08:03)
[2016-06-07] MEDS: ASPIRIN CHEWABLE 81 MG TABLET. PO SCH (08:03)
[2016-06-07] MEDS: AMLODIPINE BESYLATE 5 MG TABLET. PO SCH (08:03)
[2016-06-07 08:16] LABS: HCO3 ABG 24 mmol/L (21-28); PCO2 ABG 37 mmHg (35-46); PH ABG 7.43 (7.35-7.45); PO2 ABG 77 mmHg (65-108); SAT O2 ABG 96 % (92-99)
[2016-06-07 08:59] LABS: FIO2 ABG 25
[2016-06-07] MEDS ORDERED: ERGOCALCIFEROL (VITAMIN D2) 50,000 UNIT CAPSULE. PO SCH (09:00)
[2016-06-07] MEDS: ENOXAPARIN 40 MG/0.4 ML SYRINGE. SQ SCH ×2 (09:12→20:55)
[2016-06-07] MEDS: FAMOTIDINE 20 MG/2 ML VIAL IVP SCH (09:12)
[2016-06-07] MEDS: LEVOTHYROXINE SODIUM 50 MCG in IV NORMAL SALINE 50ML 5 ML IVP SCH (09:12)
[2016-06-07] MEDS ORDERED: IV 1/2 NORMAL SALINE 1,000 ML IV ONE (09:30)
--- NOTE | 2016-06-07 09:34 | PDOC ---
PROGRESS NOTES Chief Complaint Chief Complaint Acute respir failure ASSESSMENT AND PLAN: 1. COPD exacerbation: extubated 06/05, on BiPAP since. improved breathing, on steroids, nebs, levaquin for bronchitis 2. Pulm fibrosis 3. DM: well controlled, on ISS. no home meds; suspect borderline, unmasked by steroids. HgbA1c 5.6 4. Hypothyroidism: on synthroid (IV) 5. HTN: borderline control w/ difficult oral intake with BiPAP. hydralazine PRN 6. HLD: on statin (on hold while NPO) 7. Hypernatremia: recurrent. 1/2NS bolus 8. Hypokalemia: resolved. monitor 9. LEONID: suspect resolved. creat stable at CKD3 range 10. Nutrition: swallow eval today. if fails, start PPN 11. Prophylaxis: lovenox, H2B Vitals Vitals Vital Signs Date Time Temp Pulse Resp B/P Pulse Ox O2 Delivery O2 Flow Rate FiO2 06/07/16 08:05 107 20 155/95 98 BiPAP/CPAP 06/07/16 07:59 8.0 06/07/16 04:00 99.4 99.4 Physical Exam General: Alert, Cooperative, No acute distress Heart: Regular rate Lungs: Clear, Other (on BiPAP) Abdomen: Normal bowel sounds, Soft, No tenderness Extremities: No clubbing Skin: No rashes, No breakdown Labs LABS Laboratory Tests Test 06/06/16 11:56 06/06/16 17:34 06/07/16 05:00 06/07/16 08:00 Glucose (Fingerstick) 104mg/dL (70-99) 113mg/dL (70-99) White Blood Count 8.9x10^3/uL (4.0-11.0) Red Blood Count 4.26x10^6/uL (3.50-5.40) Hemoglobin 13.1g/dL (12.0-15.5) Hematocrit 41.3% (36.0-47.0) Mean Corpuscular Volume 97fL (79-100) Mean Corpuscular Hemoglobin 31pg (25-35) Mean Corpuscular Hemoglobin Concent 32g/dL (31-37) Red Cell Distribution Width 14.8% (11.5-14.5) Platelet Count 235x10^3/uL (140-400) Neutrophils (%) (Auto) 95% (31-73) Lymphocytes (%) (Auto) 3% (24-48) Monocytes (%) (Auto) 2% (0-9) Eosinophils (%) (Auto) 0% (0-3) Basophils (%) (Auto) 0% (0-3) Neutrophils # (Auto) 8.4x10^3uL (1.8-7.7) Lymphocytes # (Auto) 0.3x10^3/uL (1.0-4.8) Monocytes # (Auto) 0.1x10^3/uL (0.0-1.1) Eosinophils # (Auto) 0.0x10^3/uL (0.0-0.7) Basophils # (Auto) 0.0x10^3/uL (0.0-0.2) Sodium Level 147mmol/L (136-145) Potassium Level 4.8mmol/L (3.5-5.1) Chloride Level 105mmol/L (98-107) Carbon Dioxide Level 26mmol/L (21-32) Anion Gap 16 (6-14) Blood Urea Nitrogen 19mg/dL (7-20) Creatinine 1.0mg/dL (0.6-1.0) Estimated GFR (Cockcroft-Gault) 56.0 Glucose Level 116mg/dL (70-99) Calcium Level 9.4mg/dL (8.5-10.1) Magnesium Level 2.0mg/dL (1.8-2.4) O2 Saturation 96% (92-99) Arterial Blood pH 7.43 (7.35-7.45) Arterial Blood pCO2 at Patient Temp 37mmHg (35-46) Arterial Blood pO2 at Patient Temp 77mmHg (65-108) Arterial Blood HCO3 24mmol/L (21-28) Arterial Blood Base Excess 0mmol/L (-3-3) FiO2 25 Review of Systems Review of Systems breathing easier. no pain. PADDY MODI MD Jun 07, 2016 09:34
[2016-06-07] MEDS: LORAZEPAM 2 MG/ML VIAL. IV PRN ×3 (12:15→20:56)
[2016-06-07] MEDS: ATORVASTATIN CALCIUM 20 MG TABLET PO SCH (19:51)
[2016-06-08] VITALS (18 sets, daily range): BP systolic 100–187; BP diastolic 68–109
[2016-06-08] MEDS: MORPHINE SULFATE 2 MG/ML DISP.SYRIN. IV PRN ×3 (00:14→16:47)
[2016-06-08] MEDS: hydrALAZINE 20 MG/ML VIAL. IVP PRN (01:38)
[2016-06-08] MEDS: LORAZEPAM 2 MG/ML VIAL. IV PRN ×5 (01:42→20:02)
[2016-06-08] MEDS: IPRATRPIUM/ALBUTEROL 0.5/2.5MG 3 ML NEBU. NEB SCH ×5 (04:05→20:50)
[2016-06-08 05:37] LABS: BASO % 0 % (0-3); EOS % 0 % (0-3); HEMATOCRIT 38.7 % (36.0-47.0); HEMOGLOBIN 12.3 g/dL (12.0-15.5); LYMPH # 0.2 x10^3/uL (1.0-4.8); LYMPH % 3 % (24-48); MEAN CORPUSCULAR HEMOGLOBIN 31 pg (25-35); MEAN CORPUSCULAR HGB CONC 32 g/dL (31-37); MEAN CORPUSCULAR VOLUME 96 fL (79-100); MONO % 2 % (0-9); NEUT % 95 % (31-73); PLATELET COUNT 235 x10^3/uL (140-400); RED BLOOD COUNT 4.02 x10^6/uL (3.50-5.40); RED CELL DISTRIBUTION WIDTH 14.4 % (11.5-14.5); WHITE BLOOD COUNT 9.5 x10^3/uL (4.0-11.0)
[2016-06-08 05:47] LABS: CALCIUM 8.9 mg/dL (8.5-10.1); CREATININE 1.1 mg/dL (0.6-1.0); GFR 50.2; POTASSIUM 4.3 mmol/L (3.5-5.1)
[2016-06-08] MEDS: AMLODIPINE BESYLATE 5 MG TABLET. PO SCH (07:56)
[2016-06-08] MEDS: ASPIRIN CHEWABLE 81 MG TABLET. PO SCH (07:56)
[2016-06-08] MEDS: ROFLUMILAST 500 MCG TABLET. PO SCH (07:56)
[2016-06-08] MEDS: rOPINIRole 1 MG TABLET. PO SCH ×2 (07:56→21:00)
[2016-06-08] MEDS: BUDESONIDE 0.5 MG/2 ML NEBU. NEB SCH ×2 (08:09→20:50)
[2016-06-08 08:30] LABS: HCO3 ABG 28 mmol/L (21-28); PCO2 ABG 49 mmHg (35-46); PH ABG 7.37 (7.35-7.45); PO2 ABG 75 mmHg (65-108); SAT O2 ABG 94 % (92-99)
[2016-06-08 08:32] LABS: PLT ESTIMATE ADEQUATE (ADEQUATE)
[2016-06-08 08:33] LABS: FIO2 ABG 25
[2016-06-08] MEDS: methylPREDNISolone SOD SUCC PF 40 MG/ML VIAL. IV SCH (08:45)
[2016-06-08] MEDS: ENOXAPARIN 40 MG/0.4 ML SYRINGE. SQ SCH ×2 (08:45→22:01)
[2016-06-08] MEDS: FAMOTIDINE 20 MG/2 ML VIAL IVP SCH ×2 (08:45→22:01)
[2016-06-08] MEDS: LEVOTHYROXINE SODIUM 50 MCG in IV NORMAL SALINE 50ML 5 ML IVP SCH (09:15)
[2016-06-08] MEDS ORDERED: ALBUTEROL SULFATE 2.5 MG/3 ML NEBU. NEB PRN (12:15)
--- NOTE | 2016-06-08 12:15 | PDOC ---
PROGRESS NOTES Chief Complaint Chief Complaint Acute respir failure ASSESSMENT AND PLAN: 1. COPD exacerbation: extubated 06/05, on BiPAP since. improved breathing, on steroids, nebs, levaquin for bronchitis 2. Pulm fibrosis 3. DM: well controlled, on ISS. no home meds; suspect borderline, unmasked by steroids. HgbA1c 5.6 4. Hypothyroidism: on synthroid (IV) 5. HTN: borderline control w/ difficult oral intake with BiPAP. hydralazine PRN 6. HLD: on statin (on hold while NPO) 7. Hypernatremia: recurrent. 1/2NS bolus 8. Hypokalemia: resolved. monitor 9. LEONID: suspect resolved. creat stable at CKD3 range 10. Nutrition: swallow eval today. if fails, start PPN 11. Prophylaxis: lovenox, H2B on bipap 14/09 as usual at home fu with pulm ok to transfer out of ICU waiting for swallow eval labs tmr on iv meds, change to po when able to swallow dvt , gi ppx History of Present Illness History of Present Illness feels ok, on bipap 14/09 as usual still cough waiting for swallow eval Vitals Vitals Vital Signs Date Time Temp Pulse Resp B/P Pulse Ox O2 Delivery O2 Flow Rate FiO2 06/08/16 12:09 8.0 06/08/16 12:09 Bi-pap 06/08/16 11:45 97 06/08/16 10:05 101 20 132/86 06/08/16 08:43 98.7 98.7 Physical Exam General: Alert, Cooperative, No acute distress Heart: Regular rate Lungs: Clear, Other (on BiPAP) Abdomen: Normal bowel sounds, Soft, No tenderness Extremities: No clubbing Skin: No rashes, No breakdown Labs LABS Laboratory Tests Test 06/08/16 05:00 06/08/16 08:05 White Blood Count 9.5x10^3/uL (4.0-11.0) Red Blood Count 4.02x10^6/uL (3.50-5.40) Hemoglobin 12.3g/dL (12.0-15.5) Hematocrit 38.7% (36.0-47.0) Mean Corpuscular Volume 96fL (79-100) Mean Corpuscular Hemoglobin 31pg (25-35) Mean Corpuscular Hemoglobin Concent 32g/dL (31-37) Red Cell Distribution Width 14.4% (11.5-14.5) Platelet Count 235x10^3/uL (140-400) Neutrophils (%) (Auto) 95% (31-73) Lymphocytes (%) (Auto) 3% (24-48) Monocytes (%) (Auto) 2% (0-9) Eosinophils (%) (Auto) 0% (0-3) Basophils (%) (Auto) 0% (0-3) Neutrophils # (Auto) 9.1x10^3uL (1.8-7.7) Lymphocytes # (Auto) 0.2x10^3/uL (1.0-4.8) Monocytes # (Auto) 0.2x10^3/uL (0.0-1.1) Eosinophils # (Auto) 0.0x10^3/uL (0.0-0.7) Basophils # (Auto) 0.0x10^3/uL (0.0-0.2) Segmented Neutrophils % 92% (35-66) Band Neutrophils % 1% (0-9) Lymphocytes % 4% (24-48) Monocytes % 3% (0-10) Platelet Estimate Adequate (ADEQUATE) Sodium Level 146mmol/L (136-145) Potassium Level 4.3mmol/L (3.5-5.1) Chloride Level 105mmol/L (98-107) Carbon Dioxide Level 27mmol/L (21-32) Anion Gap 14 (6-14) Blood Urea Nitrogen 35mg/dL (7-20) Creatinine 1.1mg/dL (0.6-1.0) Estimated GFR (Cockcroft-Gault) 50.2 Glucose Level 132mg/dL (70-99) Calcium Level 8.9mg/dL (8.5-10.1) Magnesium Level 2.0mg/dL (1.8-2.4) O2 Saturation 94% (92-99) Arterial Blood pH 7.37 (7.35-7.45) Arterial Blood pCO2 at Patient Temp 49mmHg (35-46) Arterial Blood pO2 at Patient Temp 75mmHg (65-108) Arterial Blood HCO3 28mmol/L (21-28) Arterial Blood Base Excess 2mmol/L (-3-3) FiO2 25 Review of Systems Review of Systems no fever, chills, sob or chest pain Assessment and Plan Assessmemt and Plan Problems Medical Problems: (1) Acute and chronic respiratory failure ([id number]) Status: Acute Problems: Comment Review of Relevant I have reviewed the following items john (where applicable) has been applied. Labs Laboratory Tests Test 06/06/16 17:34 06/07/16 05:00 06/07/16 08:00 06/07/16 09:14 Glucose (Fingerstick) 113mg/dL (70-99) 120mg/dL (70-99) White Blood Count 8.9x10^3/uL (4.0-11.0) Red Blood Count 4.26x10^6/uL (3.50-5.40) Hemoglobin 13.1g/dL (12.0-15.5) Hematocrit 41.3% (36.0-47.0) Mean Corpuscular Volume 97fL (79-100) Mean Corpuscular Hemoglobin 31pg (25-35) Mean Corpuscular Hemoglobin Concent 32g/dL (31-37) Red Cell Distribution Width 14.8% (11.5-14.5) Platelet Count 235x10^3/uL (140-400) Neutrophils (%) (Auto) 95% (31-73) Lymphocytes (%) (Auto) 3% (24-48) Monocytes (%) (Auto) 2% (0-9) Eosinophils (%) (Auto) 0% (0-3) Basophils (%) (Auto) 0% (0-3) Neutrophils # (Auto) 8.4x10^3uL (1.8-7.7) Lymphocytes # (Auto) 0.3x10^3/uL (1.0-4.8) Monocytes # (Auto) 0.1x10^3/uL (0.0-1.1) Eosinophils # (Auto) 0.0x10^3/uL (0.0-0.7) Basophils # (Auto) 0.0x10^3/uL (0.0-0.2) Sodium Level 147mmol/L (136-145) Potassium Level 4.8mmol/L (3.5-5.1) Chloride Level 105mmol/L (98-107) Carbon Dioxide Level 26mmol/L (21-32) Anion Gap 16 (6-14) Blood Urea Nitrogen 19mg/dL (7-20) Creatinine 1.0mg/dL (0.6-1.0) Estimated GFR (Cockcroft-Gault) 56.0 Glucose Level 116mg/dL (70-99) Calcium Level 9.4mg/dL (8.5-10.1) Magnesium Level 2.0mg/dL (1.8-2.4) O2 Saturation 96% (92-99) Arterial Blood pH 7.43 (7.35-7.45) Arterial Blood pCO2 at Patient Temp 37mmHg (35-46) Arterial Blood pO2 at Patient Temp 77mmHg (65-108) Arterial Blood HCO3 24mmol/L (21-28) Arterial Blood Base Excess 0mmol/L (-3-3) FiO2 25 Test 06/08/16 05:00 06/08/16 08:05 White Blood Count 9.5x10^3/uL (4.0-11.0) Red Blood Count 4.02x10^6/uL (3.50-5.40) Hemoglobin 12.3g/dL (12.0-15.5) Hematocrit 38.7% (36.0-47.0) Mean Corpuscular Volume 96fL (79-100) Mean Corpuscular Hemoglobin 31pg (25-35) Mean Corpuscular Hemoglobin Concent 32g/dL (31-37) Red Cell Distribution Width 14.4% (11.5-14.5) Platelet Count 235x10^3/uL (140-400) Neutrophils (%) (Auto) 95% (31-73) Lymphocytes (%) (Auto) 3% (24-48) Monocytes (%) (Auto) 2% (0-9) Eosinophils (%) (Auto) 0% (0-3) Basophils (%) (Auto) 0% (0-3) Neutrophils # (Auto) 9.1x10^3uL (1.8-7.7) Lymphocytes # (Auto) 0.2x10^3/uL (1.0-4.8) Monocytes # (Auto) 0.2x10^3/uL (0.0-1.1) Eosinophils # (Auto) 0.0x10^3/uL (0.0-0.7) Basophils # (Auto) 0.0x10^3/uL (0.0-0.2) Segmented Neutrophils % 92% (35-66) Band Neutrophils % 1% (0-9) Lymphocytes % 4% (24-48) Monocytes % 3% (0-10) Platelet Estimate Adequate (ADEQUATE) Sodium Level 146mmol/L (136-145) Potassium Level 4.3mmol/L (3.5-5.1) Chloride Level 105mmol/L (98-107) Carbon Dioxide Level 27mmol/L (21-32) Anion Gap 14 (6-14) Blood Urea Nitrogen 35mg/dL (7-20) Creatinine 1.1mg/dL (0.6-1.0) Estimated GFR (Cockcroft-Gault) 50.2 Glucose Level 132mg/dL (70-99) Calcium Level 8.9mg/dL (8.5-10.1) Magnesium Level 2.0mg/dL (1.8-2.4) O2 Saturation 94% (92-99) Arterial Blood pH 7.37 (7.35-7.45) Arterial Blood pCO2 at Patient Temp 49mmHg (35-46) Arterial Blood pO2 at Patient Temp 75mmHg (65-108) Arterial Blood HCO3 28mmol/L (21-28) Arterial Blood Base Excess 2mmol/L (-3-3) FiO2 25 Laboratory Tests Test 06/08/16 05:00 06/08/16 08:05 White Blood Count 9.5x10^3/uL (4.0-11.0) Red Blood Count 4.02x10^6/uL (3.50-5.40) Hemoglobin 12.3g/dL (12.0-15.5) Hematocrit 38.7% (36.0-47.0) Mean Corpuscular Volume 96fL (79-100) Mean Corpuscular Hemoglobin 31pg (25-35) Mean Corpuscular Hemoglobin Concent 32g/dL (31-37) Red Cell Distribution Width 14.4% (11.5-14.5) Platelet Count 235x10^3/uL (140-400) Neutrophils (%) (Auto) 95% (31-73) Lymphocytes (%) (Auto) 3% (24-48) Monocytes (%) (Auto) 2% (0-9) Eosinophils (%) (Auto) 0% (0-3) Basophils (%) (Auto) 0% (0-3) Neutrophils # (Auto) 9.1x10^3uL (1.8-7.7) Lymphocytes # (Auto) 0.2x10^3/uL (1.0-4.8) Monocytes # (Auto) 0.2x10^3/uL (0.0-1.1) Eosinophils # (Auto) 0.0x10^3/uL (0.0-0.7) Basophils # (Auto) 0.0x10^3/uL (0.0-0.2) Segmented Neutrophils % 92% (35-66) Band Neutrophils % 1% (0-9) Lymphocytes % 4% (24-48) Monocytes % 3% (0-10) Platelet Estimate Adequate (ADEQUATE) Sodium Level 146mmol/L (136-145) Potassium Level 4.3mmol/L (3.5-5.1) Chloride Level 105mmol/L (98-107) Carbon Dioxide Level 27mmol/L (21-32) Anion Gap 14 (6-14) Blood Urea Nitrogen 35mg/dL (7-20) Creatinine 1.1mg/dL (0.6-1.0) Estimated GFR (Cockcroft-Gault) 50.2 Glucose Level 132mg/dL (70-99) Calcium Level 8.9mg/dL (8.5-10.1) Magnesium Level 2.0mg/dL (1.8-2.4) O2 Saturation 94% (92-99) Arterial Blood pH 7.37 (7.35-7.45) Arterial Blood pCO2 at Patient Temp 49mmHg (35-46) Arterial Blood pO2 at Patient Temp 75mmHg (65-108) Arterial Blood HCO3 28mmol/L (21-28) Arterial Blood Base Excess 2mmol/L (-3-3) FiO2 25 Microbiology 05/31/16 Blood Culture - Final, Complete NO GROWTH AFTER 5 DAYS Medications Current Medications Albuterol/ Ipratropium (Duoneb) 3 ml STK-MED ONCE .ROUTE ; Start 05/31/16 at 19: 04; Stop 05/31/16 at 19:05; Status DC Albuterol/ Ipratropium (Duoneb) 6 ml 1X ONCE NEB Last administered on 19:05; Start 05/31/16 at 19:30; Stop 05/31/16 at 19:31; Status DC Methylprednisolone Sodium Succinate (Solu-Medrol 125mg Vial) 125 mg 1X ONCE IV Last administered on 05/31/16 19:59; Start 05/31/16 at 19:30; Stop 05/31/16 at 19:31; Status DC Piperacillin Sod/ Tazobactam Sod (Zosyn Per Pharmacy) 1 each PRN DAILY PRN MC SEE COMMENTS; Start 05/31/16 at 19:15; Stop 06/02/16 at 08:40; Status DC Etomidate (Amidate) 20 mg 1X ONCE IV Last administered on 05/31/16 18:57; Start 05/31/16 at 19:30; Stop 05/31/16 at 19:31; Status DC Succinylcholine Chloride 100 mg 100 mg 1X ONCE IV Last administered on 18:57; Start 05/31/16 at 19:30; Stop 05/31/16 at 19:31; Status DC Piperacillin Sod/ Tazobactam Sod/ Sodium Chloride (Zosyn/Iv Sodium Chloride 0.9 % 100ml) 100 ml @ 200 mls/hr Q6HRS IV Last administered on 06/06/16 12:00; Start 05/31/16 at 19:30; Stop 06/06/16 at 12:19; Status DC Lorazepam 1 mg 1 mg PRN Q1HR PRN IV COMM Last administered on 06/08/16 03:54; Start 05/31/16 at 19:15 Propofol (Diprivan) 100 ml @ 0 mls/hr CONT PRN IV PER PROTOCOL Last administered on 06/05/16 05:07; Start 05/31/16 at 19:15; Stop 06/07/16 at 09:31 ; Status DC Fentanyl Citrate (Fentanyl 2ml Vial) 25 mcg PRN Q1HR PRN IV COMM; Start at 19:15; Stop 06/06/16 at 10:27; Status DC Fentanyl Citrate (Fentanyl 2ml Vial) 50 mcg PRN Q1HR PRN IV COMM Last administered on 06/06/16 05:17; Start 05/31/16 at 19:15; Stop 06/06/16 at 10:27 ; Status DC Chlorhexidine Gluconate (Peridex) 15 ml BID MM Last administered on 06/05/16 11:27; Start 05/31/16 at 21:00; Stop 06/06/16 at 12:19; Status DC Famotidine (Pepcid) 20 mg BID IVP Last administered on 06/02/16 08:37; Start 05/31/16 at 21:00; Stop 06/02/16 at 08:39; Status DC Diphenhydramine HCl (Benadryl) 25 mg PRN Q15MIN PRN IVP EPS Symptoms Last administered on 06/05/16 23:18; Start 05/31/16 at 19:15 Insulin Aspart (Novolog) 0-7 UNITS TIDWMEALS SQ ; Start 06/01/16 at 08:00; Stop 06/07/16 at 11:58; Status DC Dextrose 12.5 gm 12.5 gm PRN Q15MIN PRN IV SEE COMMENTS; Start 05/31/16 at 19:15 Propofol (Diprivan) 50 ml @ As Directed STK-MED ONCE IV ; Start 05/31/16 at 19:28 ; Stop 05/31/16 at 19:29; Status DC Enoxaparin Sodium (Lovenox 40mg Syringe) 40 mg Q12HR SQ Last administered on 08:45; Start 06/01/16 at 09:00 Amlodipine Besylate (Norvasc) 5 mg DAILY PO Last administered on 06/05/16 11: 28; Start 06/01/16 at 09:00 Aspirin (Children'S Aspirin) 81 mg DAILY PO Last administered on 06/05/16 11: 28; Start 06/01/16 at 09:00 Atorvastatin Calcium (Lipitor) 20 mg HS PO Last administered on 06/04/16 21:44 ; Start 05/31/16 at 21:00 Docusate Sodium (Colace) 100 mg PRN BID PRN PO CONSTIPATION; Start 05/31/16 at 20:00 Ergocalciferol (Vitamin D2) 50,000 unit Patel@09 PO ; Start 06/07/16 at 09:00 Roflumilast (Daliresp) 500 mcg DAILY PO Last administered on 06/05/16 11:28; Start 06/01/16 at 09:00 Ropinirole HCl 1 mg 1 mg BID PO Last administered on 06/05/16 11:28; Start 05/31/16 at 21:00 Levothyroxine Sodium 50 mcg/ Sodium Chloride 5 ml @ 100 mls/hr DAILY IVP Last administered on 06/08/16 09:15; Start 06/01/16 at 09:00 Sodium Chloride 1,000 ml @ 100 mls/hr Q10H IV Last administered on 05/31/16 21 :02; Start 05/31/16 at 21:00; Stop 05/31/16 at 21:27; Status DC Sodium Chloride 1,000 ml @ 3,270 mls/hr Q19M IV ; Start 05/31/16 at 21:30; Stop 05/31/16 at 21:30; Status DC Sodium Chloride 1,000 ml @ 1,000 mls/hr Q1H IV Last administered on 06/01/16 02:13; Start 05/31/16 at 21:30; Stop 06/01/16 at 00:45; Status DC Sodium Chloride (Iv Sodium Chloride 0.9% 1000ml Bag) 1,000 ml @ 100 mls/hr Q10H IV Last administered on 06/04/16 08:32; Start 06/01/16 at 02:45; Stop at 10:44; Status DC Furosemide (Lasix) 80 mg 1X ONCE IVP Last administered on 06/01/16 09:51; Start 06/01/16 at 10:00; Stop 06/01/16 at 10:01; Status DC Albuterol/ Ipratropium (Duoneb) 3 ml RTQID NEB Last administered on 06/05/16 20:03; Start 06/02/16 at 08:00; Stop 06/06/16 at 07:39; Status DC Albuterol Sulfate (Ventolin Neb Soln) 2.5 mg PRN QID PRN IH WHEEZING Last administered on 06/06/16 21:27; Start 06/02/16 at 08:00 Famotidine 20 mg 20 mg DAILY IVP Last administered on 06/08/16 08:45; Start at 09:00 Amino Acids/ Glycerin/ Electrolytes (Procalamine) 1,000 ml @ 80 mls/hr [id number] IV Last administered on 06/02/16 11:40; Start 06/02/16 at 10:45; Stop at 18:56; Status DC Potassium Chloride 40 meq 40 meq 1X ONCE NG Last administered on 06/03/16 10: 15; Start 06/03/16 at 10:15; Stop 06/03/16 at 10:16; Status DC Potassium Chloride 30 meq/ Sodium Chloride 1,015 ml @ 75 mls/hr [id number] PRN IV .; Start 06/04/16 at 11:00; Stop 06/04/16 at 11:00; Status DC Potassium Chloride (KCl Premix 10meq) 100 ml @ 100 mls/hr Q1H IV Last administered on 06/05/16 18:43; Start 06/05/16 at 11:30; Stop 06/05/16 at 13:29 ; Status DC Lorazepam (Ativan) 1 mg 1X ONCE PO Last administered on 06/05/16 15:06; Start 06/05/16 at 15:00; Stop 06/05/16 at 15:03; Status DC Hydralazine HCl 10 mg 10 mg PRN Q4HRS PRN IVP ELEVATED BP, SEE COMMENTS Last administered on 06/08/16 01:38; Start 06/05/16 at 18:45 Sodium Chloride (Iv Sodium Chloride 0.9% 500ml Bag) 500 ml @ 500 mls/hr 1X ONCE IV Last administered on 06/06/16 00:37; Start 06/06/16 at 00:30; Stop at 01:29; Status DC Enalaprilat (Vasotec) 2.5 mg 1X ONCE IV Last administered on 06/06/16 00:38; Start 06/06/16 at 00:30; Stop 06/06/16 at 00:31; Status DC Albuterol/ Ipratropium (Duoneb) 3 ml Q4HRS NEB Last administered on 06/08/16 11:44; Start 06/06/16 at 08:00 Budesonide (Pulmicort) 0.5 mg RTBID NEB Last administered on 06/08/16 08:09; Start 06/06/16 at 08:00 Methylprednisolone Sodium Succinate 40 mg 40 mg Q8HRS IV Last administered on 05:12; Start 06/06/16 at 14:00; Stop 06/07/16 at 09:27; Status DC Levofloxacin/ Dextrose (LEVAQUIN 500mg PREMIX) 100 ml @ 100 mls/hr Q24H IV Last administered on 06/08/16 10:50; Start 06/06/16 at 11:00 Morphine Sulfate 2 mg 2 mg PRN Q1HR PRN IV respir distress Last administered on 06/08/16 03:54; Start 06/06/16 at 10:30 Sodium Chloride (Iv Sodium Chloride 0.45%) 1,000 ml @ 150 mls/hr 1X ONCE IV Last administered on 06/06/16 11:39; Start 06/06/16 at 10:45; Stop 06/06/16 at 17:24; Status DC Methylprednisolone Sodium Succinate 40 mg 40 mg BID IV Last administered on 08:45; Start 06/07/16 at 21:00 Sodium Chloride (Iv Sodium Chloride 0.45%) 1,000 ml @ 0 mls/hr 1X ONCE IV Last administered on 06/07/16 09:30; Start 06/07/16 at 09:30; Stop 06/07/16 at 09:33; Status DC Active Scripts Active Reported Ropinirole Hcl 1 Mg Tablet 1 Mg PO BID Daliresp (Roflumilast) 500 Mcg Tablet 500 Mcg PO DAILY Albuterol Sulfate Conc Neb Soln (Albuterol Sulfate) 2.5 Mg/0.5 Ml Vial.neb 2.5 Mg NEB QID Singulair Tablet (Montelukast Sodium) 10 Mg Tablet 10 Mg PO HS Ranitidine Hcl 300 Mg Tablet 300 Mg PO BID Tums (Calcium Carbonate) 200 Mg Tab.chew 400 Mg PO PRN Q6HRS PRN Vitamin D2 (Ergocalciferol (Vitamin D2)) 50,000 Unit Capsule 50,000 Unit PO QSU Zyrtec (Cetirizine Hcl) 10 Mg Capsule 10 Mg PO DAILY Multivitamins (Multivitamin) 1 Each Capsule 1 Each PO DAILY Lumigan (Bimatoprost) 2.5 Ml Drops 1 Drop EACHEYE QHS Melatonin 3 Mg Tablet 10 Mg PO QHS Atorvastatin Calcium 20 Mg Tablet 20 Mg PO HS Amlodipine Besylate 5 Mg Tablet 1 Tab PO DAILY Levothyroxine Sodium 100 Mcg Tablet 100 Mcg PO DAILY06 Fluticasone Propionate Nasal Raymond (Fluticasone Propionate) 16 Gm Raymond.susp 2 Raymond NS BID Azathioprine 50 Mg Tablet 50 Mg PO HS Docusate Sodium 100 Mg Capsule 100 Mg PO PRN BID Alprazolam 0.5 Mg Tablet 0.5 Mg PO TID Gabapentin 300 Mg Capsule 300 Mg PO BID Albuterol Sulfate Hfa Inhaler (Albuterol Sulfate) 8.5 Gm Hfa.aer.ad 8.5 Gm IH PRN PRN Aspirin 81 Mg Tab.chew 81 Mg PO DAILY Hydrocodone-Apap 7.5-325 (Hydrocodone Bit/Acetaminophen) 1 Each Tablet 1-2 Each PO PRN QID PRN Celexa (Citalopram Hydrobromide) 10 Mg Tablet 20 Mg PO HS Azathioprine 50 Mg Tablet 100 Mg PO DAILY08 Alendronate Sodium 70 Mg Tablet 70 Mg PO QSU Vitals/I & O Vital Sign - Last 24 Hours 06/07/16 06/07/16 06/07/16 06/07/16 13:22 13:23 13:29 14:04 Pulse 115 115 110 Resp 29 25 B/P 182/105 185/105 167/96 Pulse Ox 95 96 97 O2 Delivery BiPAP/CPAP BiPAP/CPAP BiPAP/CPAP 06/07/16 06/07/16 06/07/16 06/07/16 14:56 15:02 15:29 15:32 Pulse 118 Resp 35 B/P 177/88 Pulse Ox 97 96 O2 Delivery BiPAP/CPAP O2 Flow Rate 8.0 8.0 8.0 06/07/16 06/07/16 06/07/16 06/07/16 15:33 15:33 16:00 17:00 Temp 99.5 99.5 Pulse 114 115 Resp 18 27 B/P 177/92 186/95 Pulse Ox 97 94 96 O2 Delivery Bi-pap BiPAP/CPAP BiPAP/CPAP BiPAP/CPAP O2 Flow Rate 8.0 06/07/16 06/07/16 06/07/16 06/07/16 17:38 18:04 19:00 19:38 Pulse 118 110 Resp 30 22 B/P 155/100 162/85 Pulse Ox 97 96 95 95 O2 Delivery BiPAP/CPAP BiPAP/CPAP BiPAP/CPAP BiPAP/CPAP 06/07/17 06/07/17 06/07/17 06/07/16 19:38 20:00 20:00 20:00 Temp 99.1 99.1 Pulse 111 Resp 19 B/P 142/75 Pulse Ox 95 99 O2 Delivery BiPAP/CPAP BiPAP/CPAP Bi-pap O2 Flow Rate 8.0 06/07/17 16/17 /16/17 06/07/16 20:56 21:00 22:00 23:00 Pulse 108 115 112 Resp 21 22 25 B/P 149/88 160/89 173/89 Pulse Ox 94 94 95 95 O2 Delivery BiPAP/CPAP BiPAP/CPAP BiPAP/CPAP BiPAP/CPAP 17 06/07/17 06/08/17 06/08/16 23:02 23:59 00:00 00:00 Temp 98.9 98.9 Pulse 111 Resp 20 B/P 171/95 Pulse Ox 95 94 O2 Delivery BiPAP/CPAP Bi-pap BiPAP/CPAP O2 Flow Rate 8.0 06/08/17 06/08/17 06/08/17 06/08/16 00:14 01:00 01:38 02:00 Pulse 116 112 101 Resp 27 21 18 B/P 177/97 177/97 124/86 Pulse Ox 96 95 96 O2 Delivery BiPAP/CPAP BiPAP/CPAP BiPAP/CPAP 06/08/1606/08/06/08/16 06/08/16 02:13 03:00 03:54 04:00 Pulse 112 Resp 26 20 B/P 151/92 Pulse Ox 94 94 95 O2 Delivery BiPAP/CPAP BiPAP/CPAP BiPAP/CPAP Bi-pap 06/08/1606/08/17 06/08/17 06/08/16 04:00 04:00 04:06 04:30 Temp 99.0 99.0 Pulse 113 Resp 24 22 B/P 176/96 Pulse Ox 93 95 95 O2 Delivery BiPAP/CPAP BiPAP/CPAP BiPAP/CPAP O2 Flow Rate 8.0 06/08/17 06/08/17 06/08/17 06/08/16 05:00 06:00 07:17 08:00 Pulse 116 87 109 Resp 22 18 20 B/P 166/90 134/68 167/100 Pulse Ox 95 95 92 O2 Delivery BiPAP/CPAP BiPAP/CPAP BiPAP/CPAP Bi-pap O2 Flow Rate 8.0 06/08/16 06/08/16 06/08/16 06/08/16 08:05 08:43 09:08 10:05 Temp 98.7 98.7 Pulse 110 97 101 Resp 25 22 20 B/P 138/79 153/79 132/86 Pulse Ox 95 100 100 99 O2 Delivery BiPAP/CPAP BiPAP/CPAP BiPAP/CPAP BiPAP/CPAP 06/08/16 06/08/16 06/08/16 11:45 12:09 12:09 Pulse Ox 97 O2 Delivery BiPAP/CPAP Bi-pap O2 Flow Rate 8.0 8.0 Intake and Output 06/07/16 06/07/16 06/08/16 14:59 22:59 06:59 Intake Total 1105 ml 1050 ml Output Total 775 ml 460 ml 535 ml Balance 330 ml 590 ml -535 ml AMENA JONES MD Jun 08, 2016 12:15
--- NOTE | 2016-06-08 14:40 | PDOC ---
PULMONARY PROGRESS NOTES Subjective PT ON BIPAP WANTS TO EAT Vitals Vital Signs Date Time Temp Pulse Resp B/P Pulse Ox O2 Delivery O2 Flow Rate FiO2 06/08/16 14:03 109 20 172/88 96 BiPAP/CPAP 06/08/16 12:09 8.0 06/08/16 08:43 98.7 98.7 General: Alert HEENT: Other (nc at perrl bipap mask on neck no lap thyromegaly) Lungs: Clear, Other Cardiovascular: S1, S2 Abdomen: Soft, Non-tender, Other Neuro Exam: Alert Extremities: No Edema Skin: Warm Labs Laboratory Tests Test 06/06/16 17:34 06/07/16 05:00 06/07/16 08:00 06/07/16 09:14 Glucose (Fingerstick) 113mg/dL (70-99) 120mg/dL (70-99) White Blood Count 8.9x10^3/uL (4.0-11.0) Red Blood Count 4.26x10^6/uL (3.50-5.40) Hemoglobin 13.1g/dL (12.0-15.5) Hematocrit 41.3% (36.0-47.0) Mean Corpuscular Volume 97fL (79-100) Mean Corpuscular Hemoglobin 31pg (25-35) Mean Corpuscular Hemoglobin Concent 32g/dL (31-37) Red Cell Distribution Width 14.8% (11.5-14.5) Platelet Count 235x10^3/uL (140-400) Neutrophils (%) (Auto) 95% (31-73) Lymphocytes (%) (Auto) 3% (24-48) Monocytes (%) (Auto) 2% (0-9) Eosinophils (%) (Auto) 0% (0-3) Basophils (%) (Auto) 0% (0-3) Neutrophils # (Auto) 8.4x10^3uL (1.8-7.7) Lymphocytes # (Auto) 0.3x10^3/uL (1.0-4.8) Monocytes # (Auto) 0.1x10^3/uL (0.0-1.1) Eosinophils # (Auto) 0.0x10^3/uL (0.0-0.7) Basophils # (Auto) 0.0x10^3/uL (0.0-0.2) Sodium Level 147mmol/L (136-145) Potassium Level 4.8mmol/L (3.5-5.1) Chloride Level 105mmol/L (98-107) Carbon Dioxide Level 26mmol/L (21-32) Anion Gap 16 (6-14) Blood Urea Nitrogen 19mg/dL (7-20) Creatinine 1.0mg/dL (0.6-1.0) Estimated GFR (Cockcroft-Gault) 56.0 Glucose Level 116mg/dL (70-99) Calcium Level 9.4mg/dL (8.5-10.1) Magnesium Level 2.0mg/dL (1.8-2.4) O2 Saturation 96% (92-99) Arterial Blood pH 7.43 (7.35-7.45) Arterial Blood pCO2 at Patient Temp 37mmHg (35-46) Arterial Blood pO2 at Patient Temp 77mmHg (65-108) Arterial Blood HCO3 24mmol/L (21-28) Arterial Blood Base Excess 0mmol/L (-3-3) FiO2 25 Test 06/08/16 05:00 06/08/16 08:05 White Blood Count 9.5x10^3/uL (4.0-11.0) Red Blood Count 4.02x10^6/uL (3.50-5.40) Hemoglobin 12.3g/dL (12.0-15.5) Hematocrit 38.7% (36.0-47.0) Mean Corpuscular Volume 96fL (79-100) Mean Corpuscular Hemoglobin 31pg (25-35) Mean Corpuscular Hemoglobin Concent 32g/dL (31-37) Red Cell Distribution Width 14.4% (11.5-14.5) Platelet Count 235x10^3/uL (140-400) Neutrophils (%) (Auto) 95% (31-73) Lymphocytes (%) (Auto) 3% (24-48) Monocytes (%) (Auto) 2% (0-9) Eosinophils (%) (Auto) 0% (0-3) Basophils (%) (Auto) 0% (0-3) Neutrophils # (Auto) 9.1x10^3uL (1.8-7.7) Lymphocytes # (Auto) 0.2x10^3/uL (1.0-4.8) Monocytes # (Auto) 0.2x10^3/uL (0.0-1.1) Eosinophils # (Auto) 0.0x10^3/uL (0.0-0.7) Basophils # (Auto) 0.0x10^3/uL (0.0-0.2) Segmented Neutrophils % 92% (35-66) Band Neutrophils % 1% (0-9) Lymphocytes % 4% (24-48) Monocytes % 3% (0-10) Platelet Estimate Adequate (ADEQUATE) Sodium Level 146mmol/L (136-145) Potassium Level 4.3mmol/L (3.5-5.1) Chloride Level 105mmol/L (98-107) Carbon Dioxide Level 27mmol/L (21-32) Anion Gap 14 (6-14) Blood Urea Nitrogen 35mg/dL (7-20) Creatinine 1.1mg/dL (0.6-1.0) Estimated GFR (Cockcroft-Gault) 50.2 Glucose Level 132mg/dL (70-99) Calcium Level 8.9mg/dL (8.5-10.1) Magnesium Level 2.0mg/dL (1.8-2.4) O2 Saturation 94% (92-99) Arterial Blood pH 7.37 (7.35-7.45) Arterial Blood pCO2 at Patient Temp 49mmHg (35-46) Arterial Blood pO2 at Patient Temp 75mmHg (65-108) Arterial Blood HCO3 28mmol/L (21-28) Arterial Blood Base Excess 2mmol/L (-3-3) FiO2 25 Laboratory Tests Test 06/08/16 05:00 06/08/16 08:05 White Blood Count 9.5x10^3/uL (4.0-11.0) Red Blood Count 4.02x10^6/uL (3.50-5.40) Hemoglobin 12.3g/dL (12.0-15.5) Hematocrit 38.7% (36.0-47.0) Mean Corpuscular Volume 96fL (79-100) Mean Corpuscular Hemoglobin 31pg (25-35) Mean Corpuscular Hemoglobin Concent 32g/dL (31-37) Red Cell Distribution Width 14.4% (11.5-14.5) Platelet Count 235x10^3/uL (140-400) Neutrophils (%) (Auto) 95% (31-73) Lymphocytes (%) (Auto) 3% (24-48) Monocytes (%) (Auto) 2% (0-9) Eosinophils (%) (Auto) 0% (0-3) Basophils (%) (Auto) 0% (0-3) Neutrophils # (Auto) 9.1x10^3uL (1.8-7.7) Lymphocytes # (Auto) 0.2x10^3/uL (1.0-4.8) Monocytes # (Auto) 0.2x10^3/uL (0.0-1.1) Eosinophils # (Auto) 0.0x10^3/uL (0.0-0.7) Basophils # (Auto) 0.0x10^3/uL (0.0-0.2) Segmented Neutrophils % 92% (35-66) Band Neutrophils % 1% (0-9) Lymphocytes % 4% (24-48) Monocytes % 3% (0-10) Platelet Estimate Adequate (ADEQUATE) Sodium Level 146mmol/L (136-145) Potassium Level 4.3mmol/L (3.5-5.1) Chloride Level 105mmol/L (98-107) Carbon Dioxide Level 27mmol/L (21-32) Anion Gap 14 (6-14) Blood Urea Nitrogen 35mg/dL (7-20) Creatinine 1.1mg/dL (0.6-1.0) Estimated GFR (Cockcroft-Gault) 50.2 Glucose Level 132mg/dL (70-99) Calcium Level 8.9mg/dL (8.5-10.1) Magnesium Level 2.0mg/dL (1.8-2.4) O2 Saturation 94% (92-99) Arterial Blood pH 7.37 (7.35-7.45) Arterial Blood pCO2 at Patient Temp 49mmHg (35-46) Arterial Blood pO2 at Patient Temp 75mmHg (65-108) Arterial Blood HCO3 28mmol/L (21-28) Arterial Blood Base Excess 2mmol/L (-3-3) FiO2 25 Medications Active Scripts Medications Dose Route/Sig Days Date Category Ropinirole Hcl 1 Mg Tablet 1 Mg PO BID 02/24/16 Reported Daliresp (Roflumilast) 500 Mcg Tablet 500 Mcg PO DAILY 11/16/14 Reported Albuterol Sulfate Conc Neb Soln (Albuterol Sulfate) 2.5 Mg/0.5 Ml Vial.neb 2.5 Mg NEB QID 11/16/14 Reported Singulair Tablet (Montelukast Sodium) 10 Mg Tablet 10 Mg PO HS 11/16/14 Reported Ranitidine Hcl 300 Mg Tablet 300 Mg PO BID 11/16/14 Reported Tums (Calcium Carbonate) 200 Mg Tab.chew 400 Mg PO PRN Q6HRS PRN 11/16/14 Reported Vitamin D2 (Ergocalciferol (Vitamin D2)) 50,000 Unit Capsule 50,000 Unit PO QSU 11/16/14 Reported Zyrtec (Cetirizine Hcl) 10 Mg Capsule 10 Mg PO DAILY 04/21/14 Reported Multivitamins (Multivitamin) 1 Each Capsule 1 Each PO DAILY 04/21/14 Reported Lum[place] (Bimatoprost) 2.5 Ml Drops 1 Drop EACHEYE QHS 04/21/14 Reported Melatonin 3 Mg Tablet 10 Mg PO QHS 04/21/14 Reported Atorvastatin Calcium 20 Mg Tablet 20 Mg PO HS 04/21/14 Reported Amlodipine Besylate 5 Mg Tablet 1 Tab PO DAILY 04/21/14 Reported Levothyroxine Sodium 100 Mcg Tablet 100 Mcg PO DAILY06 04/21/14 Reported Fluticasone Propionate Nasal [place] (Fluticasone Propionate) 16 Gm [place].susp 2 [place] NS BID 04/21/14 Reported Azathioprine 50 Mg Tablet 50 Mg PO HS 04/21/14 Reported Docusate Sodium 100 Mg Capsule 100 Mg PO PRN BID 05/03/13 Reported Alprazolam 0.5 Mg Tablet 0.5 Mg PO TID 05/03/13 Reported Gabapentin 300 Mg Capsule 300 Mg PO BID 05/03/13 Reported Albuterol Sulfate Hfa Inhaler (Albuterol Sulfate) 8.5 Gm Hfa.aer.ad 8.5 Gm IH PRN PRN 05/03/13 Reported Aspirin 81 Mg Tab.chew 81 Mg PO DAILY 05/03/13 Reported Hydrocodone-Apap 7.5-325 (Hydrocodone Bit/Acetaminophen) 1 Each Tablet 1-2 Each PO PRN QID PRN 05/03/13 Reported Celexa (Citalopram Hydrobromide) 10 Mg Tablet 20 Mg PO HS 05/03/13 Reported Azathioprine 50 Mg Tablet 100 Mg PO DAILY08 05/03/13 Reported Alendronate Sodium 70 Mg Tablet 70 Mg PO QSU 05/03/13 Reported Comments cxr reviewed. no acute cardiopulmonary abnormality is detected. Impression . 1. Jsxmp-ra-[id number] respiratory failure. 2. Acute exacerbation of chronic obstructive pulmonary disease, suspect viral. 3. Fever. 4. Severe chronic obstructive pulmonary disease with previous pneumothoraces requiring endobronchial valve placement. 5. Interstitial lung disease. 6. Hypertension. 7. Type 2 diabetes. 8. Acute kidney injury with anuria. Plan . D/W OPTION OF POSSIBLE END OF LIFE DECISION PAT WILL MEET WITH PT OK TO TRANSFER TO FLOOR PT WANTS TO GO HOME SHE WISHES TO EAT AND DRINK THICKEN LIQUID TINY MCFADDEN MD Jun 08, 2016 14:40
--- NOTE | 2016-06-08 16:43 | PDOC2 ---
PALLIATIVE CARE Palliative Care Note Palliative Care Consult requested by Dr Damico to address goals of care Diagnosis: COPD. DM, Hypothyroidism. Met with patient and daughter. Discussed Code Status; Patient will remain Full Code per patient request. Discussed swallow evaluation. Patient [facility] Plan family meeting tomorrow at 1030 TIERNEY MEYERS Jun 08, 2016 16:43
[2016-06-08] MEDS ORDERED: ONDANSETRON PF 4 MG/2 ML VIAL. IV PRN (18:45)
[2016-06-08] MEDS: ATORVASTATIN CALCIUM 20 MG TABLET PO SCH (21:00)
[2016-06-09] MEDS: IPRATRPIUM/ALBUTEROL 0.5/2.5MG 3 ML NEBU. NEB SCH ×5 (00:18→15:51)
[2016-06-09 03:20] VITALS: BP 144/85
[2016-06-09 04:50] LABS: BASO % 0 % (0-3); EOS % 0 % (0-3); HEMATOCRIT 36.1 % (36.0-47.0); HEMOGLOBIN 11.7 g/dL (12.0-15.5); LYMPH # 0.6 x10^3/uL (1.0-4.8); LYMPH % 7 % (24-48); MEAN CORPUSCULAR HEMOGLOBIN 31 pg (25-35); MEAN CORPUSCULAR HGB CONC 33 g/dL (31-37); MEAN CORPUSCULAR VOLUME 95 fL (79-100); MONO % 14 % (0-9); NEUT % 79 % (31-73); PLATELET COUNT 224 x10^3/uL (140-400); RED BLOOD COUNT 3.81 x10^6/uL (3.50-5.40); RED CELL DISTRIBUTION WIDTH 13.9 % (11.5-14.5); WHITE BLOOD COUNT 7.9 x10^3/uL (4.0-11.0)
[2016-06-09 05:10] LABS: CALCIUM 8.9 mg/dL (8.5-10.1); CREATININE 1.1 mg/dL (0.6-1.0); GFR 50.2; MAGNESIUM 2.4 mg/dL (1.8-2.4); POTASSIUM 3.8 mmol/L (3.5-5.1)
[2016-06-09 07:00] VITALS: BP 134/65
[2016-06-09] MEDS: BUDESONIDE 0.5 MG/2 ML NEBU. NEB SCH (08:13)
[2016-06-09 08:26] LABS: HCO3 ABG 29 mmol/L (21-28); PCO2 ABG 56 mmHg (35-46); PH ABG 7.34 (7.35-7.45); PO2 ABG 68 mmHg (65-108); SAT O2 ABG 92 % (92-99)
[2016-06-09 08:28] LABS: FIO2 ABG 25
[2016-06-09] MEDS: FAMOTIDINE 20 MG/2 ML VIAL IVP SCH (08:28)
[2016-06-09] MEDS: ENOXAPARIN 40 MG/0.4 ML SYRINGE. SQ SCH (08:29)
[2016-06-09] MEDS: rOPINIRole 1 MG TABLET. PO SCH (08:29)
[2016-06-09 08:30] VITALS: BP 134/65
[2016-06-09] MEDS: ASPIRIN CHEWABLE 81 MG TABLET. PO SCH (08:30)
[2016-06-09] MEDS: ROFLUMILAST 500 MCG TABLET. PO SCH (08:30)
[2016-06-09] MEDS: AMLODIPINE BESYLATE 5 MG TABLET. PO SCH (08:30)
--- NOTE | 2016-06-09 08:48 | PDOC ---
PULMONARY PROGRESS NOTES Subjective remains on BIPAP Vitals Vital Signs Date Time Temp Pulse Resp B/P Pulse Ox O2 Delivery O2 Flow Rate FiO2 06/09/16 08:30 75 134/65 06/09/16 08:03 94 BiPAP/CPAP 06/09/16 07:00 97.9 20 97.9 06/09/16 04:00 4.0 General: Alert, No acute distress HEENT: Other (nc at perrl bipap mask on neck no lap thyromegaly) Lungs: Other (decrease bs) Cardiovascular: S1, S2 Abdomen: Soft, Non-tender, Other Neuro Exam: Alert Extremities: Other Skin: Warm Labs Laboratory Tests Test 06/07/16 09:14 06/08/16 05:00 06/08/16 08:05 06/09/16 04:30 Glucose (Fingerstick) 120mg/dL (70-99) White Blood Count 9.5x10^3/uL (4.0-11.0) 7.9x10^3/uL (4.0-11.0) Red Blood Count 4.02x10^6/uL (3.50-5.40) 3.81x10^6/uL (3.50-5.40) Hemoglobin 12.3g/dL (12.0-15.5) 11.7g/dL (12.0-15.5) Hematocrit 38.7% (36.0-47.0) 36.1% (36.0-47.0) Mean Corpuscular Volume 96fL (79-100) 95fL (79-100) Mean Corpuscular Hemoglobin 31pg (25-35) 31pg (25-35) Mean Corpuscular Hemoglobin Concent 32g/dL (31-37) 33g/dL (31-37) Red Cell Distribution Width 14.4% (11.5-14.5) 13.9% (11.5-14.5) Platelet Count 235x10^3/uL (140-400) 224x10^3/uL (140-400) Neutrophils (%) (Auto) 95% (31-73) 79% (31-73) Lymphocytes (%) (Auto) 3% (24-48) 7% (24-48) Monocytes (%) (Auto) 2% (0-9) 14% (0-9) Eosinophils (%) (Auto) 0% (0-3) 0% (0-3) Basophils (%) (Auto) 0% (0-3) 0% (0-3) Neutrophils # (Auto) 9.1x10^3uL (1.8-7.7) 6.2x10^3uL (1.8-7.7) Lymphocytes # (Auto) 0.2x10^3/uL (1.0-4.8) 0.6x10^3/uL (1.0-4.8) Monocytes # (Auto) 0.2x10^3/uL (0.0-1.1) 1.1x10^3/uL (0.0-1.1) Eosinophils # (Auto) 0.0x10^3/uL (0.0-0.7) 0.0x10^3/uL (0.0-0.7) Basophils # (Auto) 0.0x10^3/uL (0.0-0.2) 0.0x10^3/uL (0.0-0.2) Segmented Neutrophils % 92% (35-66) Band Neutrophils % 1% (0-9) Lymphocytes % 4% (24-48) Monocytes % 3% (0-10) Platelet Estimate Adequate (ADEQUATE) Sodium Level 146mmol/L (136-145) 144mmol/L (136-145) Potassium Level 4.3mmol/L (3.5-5.1) 3.8mmol/L (3.5-5.1) Chloride Level 105mmol/L (98-107) 108mmol/L (98-107) Carbon Dioxide Level 27mmol/L (21-32) 32mmol/L (21-32) Anion Gap 14 (6-14) 4 (6-14) Blood Urea Nitrogen 35mg/dL (7-20) 35mg/dL (7-20) Creatinine 1.1mg/dL (0.6-1.0) 1.1mg/dL (0.6-1.0) Estimated GFR (Cockcroft-Gault) 50.2 50.2 Glucose Level 132mg/dL (70-99) 93mg/dL (70-99) Calcium Level 8.9mg/dL (8.5-10.1) 8.9mg/dL (8.5-10.1) Magnesium Level 2.0mg/dL (1.8-2.4) 2.4mg/dL (1.8-2.4) O2 Saturation 94% (92-99) Arterial Blood pH 7.37 (7.35-7.45) Arterial Blood pCO2 at Patient Temp 49mmHg (35-46) Arterial Blood pO2 at Patient Temp 75mmHg (65-108) Arterial Blood HCO3 28mmol/L (21-28) Arterial Blood Base Excess 2mmol/L (-3-3) FiO2 25 Test 06/09/16 08:23 O2 Saturation 92% (92-99) Arterial Blood pH 7.34 (7.35-7.45) Arterial Blood pCO2 at Patient Temp 56mmHg (35-46) Arterial Blood pO2 at Patient Temp 68mmHg (65-108) Arterial Blood HCO3 29mmol/L (21-28) Arterial Blood Base Excess 2mmol/L (-3-3) FiO2 25 Laboratory Tests Test 06/09/16 04:30 06/09/16 08:23 White Blood Count 7.9x10^3/uL (4.0-11.0) Red Blood Count 3.81x10^6/uL (3.50-5.40) Hemoglobin 11.7g/dL (12.0-15.5) Hematocrit 36.1% (36.0-47.0) Mean Corpuscular Volume 95fL (79-100) Mean Corpuscular Hemoglobin 31pg (25-35) Mean Corpuscular Hemoglobin Concent 33g/dL (31-37) Red Cell Distribution Width 13.9% (11.5-14.5) Platelet Count 224x10^3/uL (140-400) Neutrophils (%) (Auto) 79% (31-73) Lymphocytes (%) (Auto) 7% (24-48) Monocytes (%) (Auto) 14% (0-9) Eosinophils (%) (Auto) 0% (0-3) Basophils (%) (Auto) 0% (0-3) Neutrophils # (Auto) 6.2x10^3uL (1.8-7.7) Lymphocytes # (Auto) 0.6x10^3/uL (1.0-4.8) Monocytes # (Auto) 1.1x10^3/uL (0.0-1.1) Eosinophils # (Auto) 0.0x10^3/uL (0.0-0.7) Basophils # (Auto) 0.0x10^3/uL (0.0-0.2) Sodium Level 144mmol/L (136-145) Potassium Level 3.8mmol/L (3.5-5.1) Chloride Level 108mmol/L (98-107) Carbon Dioxide Level 32mmol/L (21-32) Anion Gap 4 (6-14) Blood Urea Nitrogen 35mg/dL (7-20) Creatinine 1.1mg/dL (0.6-1.0) Estimated GFR (Cockcroft-Gault) 50.2 Glucose Level 93mg/dL (70-99) Calcium Level 8.9mg/dL (8.5-10.1) Magnesium Level 2.4mg/dL (1.8-2.4) O2 Saturation 92% (92-99) Arterial Blood pH 7.34 (7.35-7.45) Arterial Blood pCO2 at Patient Temp 56mmHg (35-46) Arterial Blood pO2 at Patient Temp 68mmHg (65-108) Arterial Blood HCO3 29mmol/L (21-28) Arterial Blood Base Excess 2mmol/L (-3-3) FiO2 25 Medications Active Scripts Medications Dose Route/Sig Days Date Category Ropinirole Hcl 1 Mg Tablet 1 Mg PO BID 02/24/16 Reported Daliresp (Roflumilast) 500 Mcg Tablet 500 Mcg PO DAILY 11/16/14 Reported Albuterol Sulfate Conc Neb Soln (Albuterol Sulfate) 2.5 Mg/0.5 Ml Vial.neb 2.5 Mg NEB QID 11/16/14 Reported Singulair Tablet (Montelukast Sodium) 10 Mg Tablet 10 Mg PO HS 11/16/14 Reported Ranitidine Hcl 300 Mg Tablet 300 Mg PO BID 11/16/14 Reported Tums (Calcium Carbonate) 200 Mg Tab.chew 400 Mg PO PRN Q6HRS PRN 11/16/14 Reported Vitamin D2 (Ergocalciferol (Vitamin D2)) 50,000 Unit Capsule 50,000 Unit PO QSU 11/16/14 Reported Zyrtec (Cetirizine Hcl) 10 Mg Capsule 10 Mg PO DAILY 04/21/14 Reported Multivitamins (Multivitamin) 1 Each Capsule 1 Each PO DAILY 04/21/14 Reported Lumigan (Bimatoprost) 2.5 Ml Drops 1 Drop EACHEYE QHS 04/21/14 Reported Melatonin 3 Mg Tablet 10 Mg PO QHS 04/21/14 Reported Atorvastatin Calcium 20 Mg Tablet 20 Mg PO HS 04/21/14 Reported Amlodipine Besylate 5 Mg Tablet 1 Tab PO DAILY 04/21/14 Reported Levothyroxine Sodium 100 Mcg Tablet 100 Mcg PO DAILY06 04/21/14 Reported Fluticasone Propionate Nasal [place] (Fluticasone Propionate) 16 Gm [place].susp 2 [place] NS BID 04/21/14 Reported Azathioprine 50 Mg Tablet 50 Mg PO HS 04/21/14 Reported Docusate Sodium 100 Mg Capsule 100 Mg PO PRN BID 05/03/13 Reported Alprazolam 0.5 Mg Tablet 0.5 Mg PO TID 05/03/13 Reported Gabapentin 300 Mg Capsule 300 Mg PO BID 05/03/13 Reported Albuterol Sulfate Hfa Inhaler (Albuterol Sulfate) 8.5 Gm Hfa.aer.ad 8.5 Gm IH PRN PRN 05/03/13 Reported Aspirin 81 Mg Tab.chew 81 Mg PO DAILY 05/03/13 Reported Hydrocodone-Apap 7.5-325 (Hydrocodone Bit/Acetaminophen) 1 Each Tablet 1-2 Each PO PRN QID PRN 05/03/13 Reported Celexa (Citalopram Hydrobromide) 10 Mg Tablet 20 Mg PO HS 05/03/13 Reported Azathioprine 50 Mg Tablet 100 Mg PO DAILY08 05/03/13 Reported Alendronate Sodium 70 Mg Tablet 70 Mg PO QSU 05/03/13 Reported Comments cxr reviewed. no acute cardiopulmonary abnormality is detected. Impression . 1. [id number] respiratory failure. 2. Acute exacerbation of chronic obstructive pulmonary disease, suspect viral. 3. Fever. resolved 4. Severe chronic obstructive pulmonary disease with previous pneumothoraces requiring endobronchial valve placement. 5. Interstitial lung disease. 6. Hypertension. 7. Type 2 diabetes. 8. Acute kidney injury with anuria. Plan . D/W OPTION OF POSSIBLE END OF LIFE DECISION BY DR BOGDAN MONET WILL MEET WITH PT TODAY ABG MILDLY DECOMPENSATED CONTINUE WITH BIPAP PT WANTS TO GO HOME SHE WISHES TO EAT AND DRINK THICKEN LIQUID WHILE OFF BIPAP BREANA CLARK MD Jun 09, 2016 08:48
[2016-06-09] MEDS ORDERED: methylPREDNISolone SOD SUCC PF 40 MG/ML VIAL. IV SCH (09:00)
[2016-06-09] MEDS: LEVOTHYROXINE SODIUM 50 MCG in IV NORMAL SALINE 50ML 5 ML IVP SCH (10:37)
--- NOTE | 2016-06-09 12:03 | PDOC2 ---
PALLIATIVE CARE Palliative Care Note Palliative Care Patient alert. On BiPap. Marcus and family friend Kellen at bedside. Daughter unable to attend. Reviewed current medical condition. A/C respiratory failure--exacerbation suspect viral; HTN; DM2; Acute kidney injury. --improved. Patient had told physician last evening she wanted to be able to eat, and to go home and be kept comfortable. states patient was given Morphine last evening and did not understand what she was saying. Discussed medical condition along with goals of care. Patient failed swallow evaluation yesterday making her high risk for aspiration. Patient does not want a feeding tube. Informed patient and high risk for aspiration/pneumonia if food goes into lungs which is possible as she may silently aspirate. Both patient and indicate that they understand this risk: -leading to possible pneumonia and . Discussed Code Status;Full Code. Patient wishes to remain full code. Informed of the risk of injury to ribs and lungs with chest compressions. They accept risk and wish to maintain full code. Discussed re-intubation if patient has trouble breathing. They wish re-intubation Patient and 's goal is to go to rehabilitation with the hopes of getting stronger and going back home. Patient is primarily bedridden at home. Enjoys watching TV, coloring, video games and crocheting. This is an acceptable quality of life. She also is anxiously awaiting her 11th grandchild next month. Patient has been accepted at [facility] per case management. Plan: [facility] when discharged. Full code. Patient wants to eat. No feeding tube. Understands the risk of aspiration with po intake. Page BOWMAN informed of above goals. TIERNEY MEYERS Jun 09, 2016 12:03
[2016-06-09] MEDS ORDERED: CALCIUM CARBONATE 500 MG TAB.CHEW PO PRN (13:45)
[2016-06-09] MEDS ORDERED: HYDROCODONE/APAP 7.5/325MG TABLET. PO PRN (13:45)
--- NOTE | 2016-06-09 13:53 | PDOC3 ---
Discharge Summary Visit Information Date of Admission: May 31, 2016 Date of Discharge: Jun 09, 2016 Admitting Diagnosis Comment: 1. COPD exacerbation: extubated 06/05, on BiPAP since. improved breathing, on steroids, nebs, levaquin for bronchitis 2. Pulm fibrosis 3. DM: well controlled, on ISS. no home meds; suspect borderline, unmasked by steroids. HgbA1c 5.6 4. Hypothyroidism: on synthroid (IV) 5. HTN: borderline control w/ difficult oral intake with BiPAP. hydralazine PRN 6. HLD: on statin (on hold while NPO) 7. Hypernatremia: recurrent. 1/2NS bolus 8. Hypokalemia: resolved. monitor 9. LEONID: suspect resolved. creat stable at CKD3 range 10. Nutrition: swallow eval today. if fails, start PPN 11. Prophylaxis: lovenox, H2B Final Diagnosis Problems Medical Problems: (1) Acute and chronic respiratory failure ([id number]) Status: Acute (2) End stage COPD Status: Acute Brief Hospital Course Allergies Allergies Coded Allergies Type Severity Reaction Last Updated Verified I S O L A T I O N *CONTACT* Allergy Unknown 06/02/16 Yes No Known Medication Allergies Allergy Unknown 06/02/16 Yes Vital Signs Vital Signs Date Time Temp Pulse Resp B/P Pulse Ox O2 Delivery O2 Flow Rate FiO2 06/09/16 12:00 10.5 06/09/16 11:49 97 BiPAP/CPAP 06/09/16 08:30 75 134/65 06/09/16 07:00 97.9 20 97.9 Lab Results Laboratory Tests Test 06/08/16 05:00 06/08/16 08:05 06/09/16 04:30 06/09/16 08:23 White Blood Count 9.5x10^3/uL (4.0-11.0) 7.9x10^3/uL (4.0-11.0) Red Blood Count 4.02x10^6/uL (3.50-5.40) 3.81x10^6/uL (3.50-5.40) Hemoglobin 12.3g/dL (12.0-15.5) 11.7g/dL (12.0-15.5) Hematocrit 38.7% (36.0-47.0) 36.1% (36.0-47.0) Mean Corpuscular Volume 96fL (79-100) 95fL (79-100) Mean Corpuscular Hemoglobin 31pg (25-35) 31pg (25-35) Mean Corpuscular Hemoglobin Concent 32g/dL (31-37) 33g/dL (31-37) Red Cell Distribution Width 14.4% (11.5-14.5) 13.9% (11.5-14.5) Platelet Count 235x10^3/uL (140-400) 224x10^3/uL (140-400) Neutrophils (%) (Auto) 95% (31-73) 79% (31-73) Lymphocytes (%) (Auto) 3% (24-48) 7% (24-48) Monocytes (%) (Auto) 2% (0-9) 14% (0-9) Eosinophils (%) (Auto) 0% (0-3) 0% (0-3) Basophils (%) (Auto) 0% (0-3) 0% (0-3) Neutrophils # (Auto) 9.1x10^3uL (1.8-7.7) 6.2x10^3uL (1.8-7.7) Lymphocytes # (Auto) 0.2x10^3/uL (1.0-4.8) 0.6x10^3/uL (1.0-4.8) Monocytes # (Auto) 0.2x10^3/uL (0.0-1.1) 1.1x10^3/uL (0.0-1.1) Eosinophils # (Auto) 0.0x10^3/uL (0.0-0.7) 0.0x10^3/uL (0.0-0.7) Basophils # (Auto) 0.0x10^3/uL (0.0-0.2) 0.0x10^3/uL (0.0-0.2) Segmented Neutrophils % 92% (35-66) Band Neutrophils % 1% (0-9) Lymphocytes % 4% (24-48) Monocytes % 3% (0-10) Platelet Estimate Adequate (ADEQUATE) Sodium Level 146mmol/L (136-145) 144mmol/L (136-145) Potassium Level 4.3mmol/L (3.5-5.1) 3.8mmol/L (3.5-5.1) Chloride Level 105mmol/L (98-107) 108mmol/L (98-107) Carbon Dioxide Level 27mmol/L (21-32) 32mmol/L (21-32) Anion Gap 14 (6-14) 4 (6-14) Blood Urea Nitrogen 35mg/dL (7-20) 35mg/dL (7-20) Creatinine 1.1mg/dL (0.6-1.0) 1.1mg/dL (0.6-1.0) Estimated GFR (Cockcroft-Gault) 50.2 50.2 Glucose Level 132mg/dL (70-99) 93mg/dL (70-99) Calcium Level 8.9mg/dL (8.5-10.1) 8.9mg/dL (8.5-10.1) Magnesium Level 2.0mg/dL (1.8-2.4) 2.4mg/dL (1.8-2.4) O2 Saturation 94% (92-99) 92% (92-99) Arterial Blood pH 7.37 (7.35-7.45) 7.34 (7.35-7.45) Arterial Blood pCO2 at Patient Temp 49mmHg (35-46) 56mmHg (35-46) Arterial Blood pO2 at Patient Temp 75mmHg (65-108) 68mmHg (65-108) Arterial Blood HCO3 28mmol/L (21-28) 29mmol/L (21-28) Arterial Blood Base Excess 2mmol/L (-3-3) 2mmol/L (-3-3) FiO2 25 25 Laboratory Tests Test 06/09/16 04:30 06/09/16 08:23 White Blood Count 7.9x10^3/uL (4.0-11.0) Red Blood Count 3.81x10^6/uL (3.50-5.40) Hemoglobin 11.7g/dL (12.0-15.5) Hematocrit 36.1% (36.0-47.0) Mean Corpuscular Volume 95fL (79-100) Mean Corpuscular Hemoglobin 31pg (25-35) Mean Corpuscular Hemoglobin Concent 33g/dL (31-37) Red Cell Distribution Width 13.9% (11.5-14.5) Platelet Count 224x10^3/uL (140-400) Neutrophils (%) (Auto) 79% (31-73) Lymphocytes (%) (Auto) 7% (24-48) Monocytes (%) (Auto) 14% (0-9) Eosinophils (%) (Auto) 0% (0-3) Basophils (%) (Auto) 0% (0-3) Neutrophils # (Auto) 6.2x10^3uL (1.8-7.7) Lymphocytes # (Auto) 0.6x10^3/uL (1.0-4.8) Monocytes # (Auto) 1.1x10^3/uL (0.0-1.1) Eosinophils # (Auto) 0.0x10^3/uL (0.0-0.7) Basophils # (Auto) 0.0x10^3/uL (0.0-0.2) Sodium Level 144mmol/L (136-145) Potassium Level 3.8mmol/L (3.5-5.1) Chloride Level 108mmol/L (98-107) Carbon Dioxide Level 32mmol/L (21-32) Anion Gap 4 (6-14) Blood Urea Nitrogen 35mg/dL (7-20) Creatinine 1.1mg/dL (0.6-1.0) Estimated GFR (Cockcroft-Gault) 50.2 Glucose Level 93mg/dL (70-99) Calcium Level 8.9mg/dL (8.5-10.1) Magnesium Level 2.4mg/dL (1.8-2.4) O2 Saturation 92% (92-99) Arterial Blood pH 7.34 (7.35-7.45) Arterial Blood pCO2 at Patient Temp 56mmHg (35-46) Arterial Blood pO2 at Patient Temp 68mmHg (65-108) Arterial Blood HCO3 29mmol/L (21-28) Arterial Blood Base Excess 2mmol/L (-3-3) FiO2 25 Brief Hospital Course Ms. Avalos is a 65 old [sex] who presented with [ ] One of the many readmission of Ms lopez for end stage COPD, needing BIPAP, HAs trilogy, O2 concentrator, hospital bed at home, acts as the caregiver ( does not want rehab for her but admits he is getting tired). Was admitted to ICU, NOw transferred to floor, Accepted at [facility] - [facility] Pall[facility] consulted - pt and not ready for hospice Remains full code with active med tx WATCH REPAIRER APPRENTICE evaluates to be NPO - but they feel strongly she wants to eat with full knowledge of aspiration etc Hence now on dysphagia 3 diet with honey thickened Also wants few mins off BIPAP and just on face mask to get some rest Pt seen and examined Lots of time counselling, inocencio henderson and RN and erickand DispO; to LTAC Time 40 mins Discharge Information Condition at Discharge: Improved, Stable Disposition/Orders: Other (ltac) Scheduled Albuterol Sulfate (Albuterol Sulfate Conc Neb Soln) 2.5 MG NEB QID (Reported) Alendronate Sodium (Alendronate Sodium) 70 MG PO QSU (Reported) Alprazolam (Alprazolam) 0.5 MG PO TID (Reported) Amlodipine Besylate (Amlodipine Besylate) 1 TAB PO DAILY (Reported) Aspirin (Aspirin) 81 MG PO DAILY (Reported) Atorvastatin Calcium (Atorvastatin Calcium) 20 MG PO HS (Reported) Azathioprine (Azathioprine) 100 MG PO DAILY08 (Reported) Azathioprine (Azathioprine) 50 MG PO HS (Reported) Bimatoprost (Lumigan) 1 DROP EACHEYE QHS (Reported) Cetirizine Hcl (Zyrtec) 10 MG PO DAILY (Reported) Citalopram Hydrobromide (Celexa) 20 MG PO HS (Reported) Docusate Sodium (Docusate Sodium) 100 MG PO PRN BID (Reported) Ergocalciferol (Vitamin D2) (Vitamin D2) 50,000 UNIT PO QSU (Reported) Fluticasone Propionate (Fluticasone Propionate Nasal [place]) 2 SPRAY NS BID ( Reported) Gabapentin (Gabapentin) 300 MG PO BID (Reported) Levothyroxine Sodium (Levothyroxine Sodium) 100 MCG PO DAILY06 (Reported) Melatonin (Melatonin) 10 MG PO QHS (Reported) Montelukast Sodium (Singulair Tablet) 10 MG PO HS (Reported) Multivitamin (Multivitamins) 1 EACH PO DAILY (Reported) Ranitidine Hcl (Ranitidine Hcl) 300 MG PO BID (Reported) Roflumilast (Daliresp) 500 MCG PO DAILY (Reported) Ropinirole Hcl (Ropinirole Hcl) 1 MG PO BID (Reported) Scheduled PRN Albuterol Sulfate (Albuterol Sulfate Hfa Inhaler) 8.5 GM IH PRN PRN PRN SHORTNESS OF BREATH (Reported) Calcium Carbonate (Tums) 400 MG PO PRN Q6HRS PRN PRN INDIGESTION (Reported) Hydrocodone Bit/Acetaminophen (Hydrocodone-Apap 7.5-325 ) 1-2 EACH PO PRN QID PRN PRN PAIN (Reported) RENU HARDY MD Jun 09, 2016 13:53
[2016-06-09] MEDS ORDERED: ALPRAZOLAM 0.5 MG TABLET. PO SCH (14:00)
[2016-06-09] MEDS ORDERED: GABAPENTIN 300 MG CAPSULE. PO SCH (14:00)
[2016-06-09] MEDS ORDERED: NON FORMULARY ITEM (Albuterol Sulfate (Albuterol Sulfate Conc Neb Soln) 2.5 MG) NEB SCH (17:00)
[2016-06-09] MEDS ORDERED: CITALOPRAM 10 MG TABLET. PO SCH (21:00)
[2016-06-09] MEDS ORDERED: FLUTICASONE 50MCG/NASAL SPRAY 16GM BOTTLE. NS SCH (21:00)
[2016-06-09] MEDS ORDERED: LATANOPROST 0.005% OPHTH SOLUTION 2.5ML BOTTLE. OU SCH (21:00)
[2016-06-09] MEDS ORDERED: NON FORMULARY ITEM (Ranitidine Hcl 300 MG) PO SCH (21:00)
[2016-06-09] MEDS ORDERED: MONTELUKAST SODIUM 10 MG TABLET. PO SCH (21:00)
[2016-06-09] MEDS ORDERED: NON FORMULARY ITEM (Melatonin 10 MG) PO SCH (21:00)
[2016-06-10] MEDS ORDERED: LEVOTHYROXINE 100 MCG TABLET PO SCH (06:00)
[2016-06-10] MEDS ORDERED: MULTIVITAMIN with MINERAL TABLET. PO SCH (09:00)
[2016-06-10] MEDS ORDERED: CETIRIZINE HCL 10 MG TABLET. PO SCH (09:00)
[2016-06-14] MEDS ORDERED: NON FORMULARY ITEM (Alendronate Sodium 70 MG) PO SCH (16:00)
== END 2016-06-09 16:07 | DRG 870 ==
LOC: ER 18:48 → 1 WEST ICU 19:15 → 6 SOUTH 06-08 15:15
PROVIDERS: ADMIT Internal Medicine; ATTEND Internal Medicine
PROC: 5A1955Z Respiratory Ventilation, Greater than 96 Consecutive Hours (ICD-10-PCS; principal; 2016-06-01)
PROC: 0BH17EZ Insertion of Endotracheal Airway into Trachea, Via Natural or Artificial Opening (ICD-10-PCS; 2016-06-01)
DX: A41.9 Sepsis, unspecified organism (principal); J96.21 Acute and chronic respiratory failure with hypoxia; E87.0 Hyperosmolality and hypernatremia; E87.1 Hypo-osmolality and hyponatremia; J44.1 Chronic obstructive pulmonary disease with (acute) exacerbation; N17.9 Acute kidney failure, unspecified; Z68.41 Body mass index [BMI] 40.0-44.9, adult; E03.9 Hypothyroidism, unspecified; E11.22 Type 2 diabetes mellitus with diabetic chronic kidney disease; E78.5 Hyperlipidemia, unspecified; E87.6 Hypokalemia; I12.9 Hypertensive chronic kidney disease with stage 1 through stage 4 chronic kidney disease, or unspecified chronic kidney disease; I25.10 Atherosclerotic heart disease of native coronary artery without angina pectoris; J84.10 Pulmonary fibrosis, unspecified; K21.9 Gastro-esophageal reflux disease without esophagitis; M06.9 Rheumatoid arthritis, unspecified; Z96.649 Presence of unspecified artificial hip joint; N18.3 Chronic kidney disease, stage 3 (moderate); Z79.82 Long term (current) use of aspirin; Z79.899 Other long term (current) drug therapy; Z82.49 Family history of ischemic heart disease and other diseases of the circulatory system; Z90.49 Acquired absence of other specified parts of digestive tract; Z87.891 Personal history of nicotine dependence; F32.9 Major depressive disorder, single episode, unspecified; M19.90 Unspecified osteoarthritis, unspecified site; E66.01 Morbid (severe) obesity due to excess calories
CPT/HCPCS: 31500; 36415; 36600; 51702; 71010; 74000; 80048; 80053; 81001; 82805; 82947; 83036; 83605; 83735; 83880; 84484; 85007; 85027; 87040; 87641; 93005; 94002; 94003; 94640; 94660; 94760; 96374; 96375; G0481; J0330; J0360; J1200; J1650; J1815; J1956; J2060; J2270; J2405; J2543; J2704; J2920; J2930; J3010; J3480; J7030; J7040; J7620; S0028; 92610; 99291-25

== ENCOUNTER 2018-04-10 10:19 | Inpatient (IN) | payer MEDICARE, OTHER ==
[~2018-04-10] VITALS: Ht 162.6 cm; Wt 105.0 kg
[~2018-04-10 10:19] MED LIST changes: -ALEN70TA5 PO; +ALEN70TA60 PO; +AMLO5TAB10 PO; -AMLO5TAB2 PO; +AMOX1TAB11 PO; +ASPI-630 PO; -ASPI81TA2 PO; +AZIT250T6 PO; +CHOL100014 PO; -CHOL10007 PO; +DOCU100C28 PO; -DOCU100C5 PO; -ERGO500012 PO; +ERGO500027 PO; +FLUT1DIS5 IH; -GABA-586 PO; +GABA300C18 PO; -HYDR-2762 PO; +HYDR-2765 PO; -LEVO500T38 PO; +LEVO500T59 PO; -MELA3TAB PO; +MELA3TAB2 PO; -OXYC10TA32 PO; +OXYC10TA46 PO; -ROFL500T PO; +ROFL500T7 PO; +TIOT18CA IH; +ZOLP5TAB PO
[2018-04-10] MEDS ORDERED: DEXAMETHASONE SOD PHOS 20 MG/5 ML VIAL. IV ONE (10:30)
[2018-04-10] MEDS ORDERED: ASPIRIN 325 MG TABLET PO ONE (10:30)
[2018-04-10] MEDS ORDERED: IPRATRPIUM/ALBUTEROL 0.5/2.5MG 3 ML NEBU. NEB ONE (10:30)
[2018-04-10 10:56] LABS: BASO % 0 % (0-3); EOS % 0 % (0-3); HEMATOCRIT 40.7 % (36.0-47.0); HEMOGLOBIN 13.4 g/dL (12.0-15.5); LYMPH # 0.4 x10^3/uL (1.0-4.8); LYMPH % 5 % (24-48); MEAN CORPUSCULAR HEMOGLOBIN 32 pg (25-35); MEAN CORPUSCULAR HGB CONC 33 g/dL (31-37); MEAN CORPUSCULAR VOLUME 97 fL (79-100); MONO # 0.6 x10^3/uL (0.0-1.1); MONO % 9 % (0-9); NEUT # 6.5 x10^3uL (1.8-7.7); NEUT % 86 % (31-73); PLATELET COUNT 154 x10^3/uL (140-400); RED BLOOD COUNT 4.17 x10^6/uL (3.50-5.40); RED CELL DISTRIBUTION WIDTH 14.4 % (11.5-14.5); WHITE BLOOD COUNT 7.5 x10^3/uL (4.0-11.0)
[2018-04-10 10:58] LABS: CALCIUM 8.5 mg/dL (8.5-10.1); CREATININE 0.7 mg/dL (0.6-1.0); POTASSIUM 4.1 mmol/L (3.5-5.1)
[2018-04-10 11:05] LABS: ALBUMIN 3.1 g/dL (3.4-5.0); ALBUMIN/GLOBULIN RATIO 0.6 (1.0-1.7); MAGNESIUM 1.8 mg/dL (1.8-2.4); TOTAL BILIRUBIN 0.4 mg/dL (0.2-1.0); TOTAL PROTEIN 8.1 g/dL (6.4-8.2)
--- NOTE | 2018-04-10 11:06 | RAD ---
Portable AP chest. HISTORY: Dyspnea AP view was taken of the chest. Heart is normal in size. There is blunting of the left costophrenic angle from slight pleural thickening or a small effusion. There are no other infiltrates. There is been no other change. IMPRESSION: 1. Blunting left costophrenic angle from slight pleural thickening or pleural effusion. 2. No new infiltrates. Electronically signed by: Dami Ponce MD (04/10/2018 11:03 AM) [facility]
[2018-04-10 11:08] LABS: PROTHROMBIN TIME PATIENT 13.6 SEC (11.7-14.0)
[2018-04-10] MEDS: INSULIN LISPRO 300 UNITS/3 ML INSULN.PEN. SQ SCH ×2 (12:00→17:00)
[2018-04-10] MEDS ORDERED: fentaNYL PF VIAL 100 MCG/2 ML VIAL IV PRN (12:00)
[2018-04-10] MEDS ORDERED: DEXTROSE 50% 25 GM / 50ML DISP.SYRIN. IV PRN (12:00)
[2018-04-10] MEDS ORDERED: ONDANSETRON PF 4 MG/2 ML VIAL. IV PRN (12:00)
--- NOTE | 2018-04-10 12:04 | PHYS DOC ---
Past Medical History Past Medical History: Arthritis, COPD, Diabetes-Type II, Hypertension, Other Additional Past Medical Histor: PULMONARY FIBROSIS, morbidly obese Past Surgical History: Appendectomy, Cervical Fusion, Cholecystectomy, Hip Replacement, Hysterectomy, Tonsillectomy, Other Additional Past Surgical Histo: LUNG BIOPSY Alcohol Use: None Drug Use: None Adult General Chief Complaint Chief Complaint: DYSPNEA/RESPIRATOY DISTRESS HPI HPI Patient is a 67 year old [f__sex] who presents with [] Review of Systems Review of Systems Constitutional: Denies fever or chills [] Eyes: Denies change in visual acuity, redness, or eye pain [] HENT: Denies nasal congestion or sore throat [] Respiratory: Denies cough or shortness of breath [] Cardiovascular: No additional information not addressed in HPI [] GI: Denies abdominal pain, nausea, vomiting, bloody stools or diarrhea [] : Denies dysuria or hematuria [] Musculoskeletal: Denies back pain or joint pain [] Integument: Denies rash or skin lesions [] Neurologic: Denies headache, focal weakness or sensory changes [] Endocrine: Denies polyuria or polydipsia [] All other systems were reviewed and found to be within normal limits, except as documented in this note. Current Medications Current Medications Current Medications Medications (Trade) Dose Ordered Sig/Al Start Time Stop Time Status Last Admin Dose Admin Albuterol/ Ipratropium (Duoneb) 3 ml 1X ONCE 04/10/18 10:30 04/10/18 10:33 DC 04/10/18 10:55 3 ML Aspirin (Adriana Aspirin) 325 mg 1X ONCE 04/10/18 10:30 04/10/18 10:33 DC 04/10/18 10:53 325 MG Dexamethasone Sodium Phosphate (Decadron) 10 mg 1X ONCE 04/10/18 10:30 04/10/18 10:33 DC 04/10/18 10:54 10 MG Dextrose (Dextrose 50%-Water Syringe) 12.5 gm PRN Q15MIN PRN 04/10/18 12:00 Fentanyl Citrate (Fentanyl 2ml Vial) 50 mcg PRN Q2HRS PRN 04/10/18 12:00 Insulin Human Lispro (HumaLOG) 0-5 UNITS TIDWMEALS 04/10/18 12:00 UNV Ondansetron HCl (Zofran) 4 mg PRN Q8HRS PRN 04/10/18 12:00 04/11/18 11:59 Allergies Allergies Allergies Coded Allergies Type Severity Reaction Last Updated Verified I S O L A T I O N *CONTACT* Allergy Unknown 01/19/17 Yes No Known Medication Allergies Allergy Unknown 06/02/16 Yes Physical Exam Physical Exam Constitutional: Well developed, well nourished, no acute distress, non-toxic appearance. [] HENT: Normocephalic, atraumatic, bilateral external ears normal, oropharynx moist, no oral exudates, nose normal. [] Eyes: PERRLA, EOMI, conjunctiva normal, no discharge. [] Neck: Normal range of motion, no tenderness, supple, no stridor. [] Cardiovascular:Heart rate regular rhythm, no murmur [] Lungs & Thorax: Bilateral breath sounds clear to auscultation [] Abdomen: Bowel sounds normal, soft, no tenderness, no masses, no pulsatile masses. [] Skin: Warm, dry, no erythema, no rash. [] Back: No tenderness, no CVA tenderness. [] Extremities: No tenderness, no cyanosis, no clubbing, ROM intact, no edema. [] Neurologic: Alert and oriented X 3, normal motor function, normal sensory function, no focal deficits noted. [] Psychologic: Affect normal, judgement normal, mood normal. [] Current Patient Data Vital Signs Vital Signs Date Time Temp Pulse Resp B/P (MAP) Pulse Ox O2 Delivery O2 Flow Rate FiO2 04/10/18 10:42 99.5 114 151/99 (116) 100 BiPAP/CPAP 99.5 Lab Values Laboratory Tests Test 04/10/18 10:30 White Blood Count 7.5 x10^3/uL (4.0-11.0) Red Blood Count 4.17 x10^6/uL (3.50-5.40) Hemoglobin 13.4 g/dL (12.0-15.5) Hematocrit 40.7 % (36.0-47.0) Mean Corpuscular Volume 97 fL (79-100) Mean Corpuscular Hemoglobin 32 pg (25-35) Mean Corpuscular Hemoglobin Concent 33 g/dL (31-37) Red Cell Distribution Width 14.4 % (11.5-14.5) Platelet Count 154 x10^3/uL (140-400) Neutrophils (%) (Auto) 86 % (31-73) H Lymphocytes (%) (Auto) 5 % (24-48) L Monocytes (%) (Auto) 9 % (0-9) Eosinophils (%) (Auto) 0 % (0-3) Basophils (%) (Auto) 0 % (0-3) Neutrophils # (Auto) 6.5 x10^3uL (1.8-7.7) Lymphocytes # (Auto) 0.4 x10^3/uL (1.0-4.8) L Monocytes # (Auto) 0.6 x10^3/uL (0.0-1.1) Eosinophils # (Auto) 0.0 x10^3/uL (0.0-0.7) Basophils # (Auto) 0.0 x10^3/uL (0.0-0.2) Platelet Estimate Pending Prothrombin Time 13.6 SEC (11.7-14.0) Prothrombin Time INR 1.1 (0.8-1.1) PTT 31 SEC (24-38) Sodium Level 136 mmol/L (136-145) Potassium Level 4.1 mmol/L (3.5-5.1) Chloride Level 94 mmol/L (98-107) L Carbon Dioxide Level 39 mmol/L (21-32) H Anion Gap 3 (6-14) L Blood Urea Nitrogen 12 mg/dL (7-20) Creatinine 0.7 mg/dL (0.6-1.0) Estimated GFR (Cockcroft-Gault) 84.0 BUN/Creatinine Ratio 17 (6-20) Glucose Level 193 mg/dL (70-99) H Lactic Acid Level 0.6 mmol/L (0.4-2.0) Calcium Level 8.5 mg/dL (8.5-10.1) Magnesium Level 1.8 mg/dL (1.8-2.4) Total Bilirubin 0.4 mg/dL (0.2-1.0) Aspartate Amino Transferase (AST) 19 U/L (15-37) Alanine Aminotransferase (ALT) 13 U/L (14-59) L Alkaline Phosphatase 77 U/L (46-116) Creatine Kinase 76 U/L (26-192) Creatine Kinase MB (Mass) 0.7 ng/mL (0.0-3.6) Creatine Kinase MB Relative Index 0.9 % (0-4) Troponin I Quantitative < 0.017 ng/mL (0.000-0.055) EK-Eeg-G-Type Natriuretic Peptide 98 pg/mL (0-124) Total Protein 8.1 g/dL (6.4-8.2) Albumin 3.1 g/dL (3.4-5.0) L Albumin/Globulin Ratio 0.6 (1.0-1.7) L Laboratory Tests 04/10/18 10:30 Laboratory Tests 04/10/18 10:30 EKG EKG @1032 Sinus tachycardia at 117bpm, baseline artifact noted, NO ST elevation, compared to prior EKG from 02/15/18 without significant change. Radiology/Procedures Radiology/Procedures PROCEDURE: PORTABLE CHEST 1V Portable AP chest. HISTORY: Dyspnea AP view was taken of the chest. Heart is normal in size. There is blunting of the left costophrenic angle from slight pleural thickening or a small effusion. There are no other infiltrates. There is been no other change. IMPRESSION: 1. Blunting left costophrenic angle from slight pleural thickening or pleural effusion. 2. No new infiltrates. Electronically signed by: Dami Ponce MD (04/10/2018 11:03 AM) [facility] Course & Med Decision Making Course & Med Decision Making Pertinent Labs and Imaging studies reviewed. (See chart for details) [] Dragon Disclaimer Dragon Disclaimer This electronic medical record was generated, in whole or in part, using a voice recognition dictation system. Departure Departure Impression: Primary Impression: Acute and chronic respiratory failure ([id number]) Additional Impressions: COPD exacerbation Hypoxia Disposition: 09 ADMITTED INPATIENT Admitting Physician: Hayde Brooks Condition: GUARDED Referrals: PAWAN LOWERY MD (PCP) Critical Care Time Critical care time was 30 minutes which includes time at bedside, spent in discussion of patient's care with specialists and/or family members, with interpretation of laboratory and/or radiological studies and is exclusive of procedures. Problem Qualifiers Primary Impression: Acute and chronic respiratory failure ([id number]) Respiratory failure complication: hypoxia and hypercapnia Qualified Codes: J96.21 - Acute and chronic respiratory failure with hypoxia; J96.22 - Acute and chronic respiratory failure with hypercapnia FRANCIA ROBIN DO Apr 10, 2018 12:04
[2018-04-10 12:06] LABS: % BANDS 18 % (0-9); % LYMPHS 7 % (24-48); % MONOS 11 % (0-10); % MYELOS 1 % (0-0); % SEGS 63 % (35-66)
[2018-04-10 12:09] LABS: PLT ESTIMATE ADEQUATE (ADEQUATE)
[2018-04-10 12:47] LABS: INFLUENZA A PATIENT NEGATIVE (NEGATIVE); INFLUENZA B PATIENT NEGATIVE (NEGATIVE)
[2018-04-10] MEDS ORDERED: DOCUSATE SODIUM 100 MG CAPSULE. PO PRN (13:45)
[2018-04-10] MEDS ORDERED: CALCIUM CARBONATE 500 MG TAB.CHEW PO PRN (13:45)
--- NOTE | 2018-04-10 14:12 | HP ---
ADMIT DATE: 04/10/2018 CHIEF COMPLAINT: Mental status change and shortness of breath. HISTORY OF PRESENT ILLNESS: The patient is a pleasant 67-year-old female who has near end-stage COPD. I think she continued to smoke. We admitted her at least once or twice a month. Once again, she presents with respiratory failure. She is hypercapnic. She is unconscious. Her CO2 level is high. I discussed the case with ER physician. We are going to place the patient on BiPAP and consult Pulmonary Medicine. PAST MEDICAL HISTORY: Noncompliance, COPD, continued tobacco abuse, depression, anxiety, diabetes, hypertension, pulmonary fibrosis, obesity, appendectomy, cervical fusion, cholecystectomy, hip replacement, hysterectomy, tonsillectomy, lung biopsy. ALLERGIES: None. FAMILY HISTORY: Coronary artery disease. SOCIAL HISTORY: She smokes. No drinking or drugs. I believe she is . MEDICATIONS: Reviewed. She is on 30 including sertraline, azithromycin, Augmentin, Spiriva, albuterol, atorvastatin, amlodipine, aspirin, hydrocodone, gabapentin, Celexa, alprazolam, Ambien, Remeron, fluticasone, Singulair, Lumigan eye drops, Tums, vitamins, docusate, ranitidine, prednisone, Synthroid, alendronate, azathioprine, melatonin. REVIEW OF SYSTEMS: Unable to obtain. The patient is not waking up right now. PHYSICAL EXAMINATION: VITAL SIGNS: Temperature 99, pulse 114, respirations 22, blood pressure 151/99, O2 sat 100% on BiPAP. GENERAL: She seems very sleepy, suspect CO2 narcosis. HEART: Tachycardic, S1, S2. LUNGS: Bibasilar crackles. ABDOMEN: Soft, distended, obese. EXTREMITIES: 1+ edema. SKIN: No rashes. ENDOCRINE: No thyromegaly. LYMPHATICS: No cervical nodes. HEMATOPOIETIC: No bruising. NEUROLOGICAL: She is really not waking up right now, suspect this is secondary to her chronic pulmonary disease. LABORATORY DATA: Chest x-ray shows blunting of the left costophrenic angle with some pleural thickening. ASSESSMENT AND PLAN: Respiratory failure, suspect chronic obstructive pulmonary disease exacerbation with hypercapnia. The patient has been admitted. We will place her on BiPAP. We currently have her on 40% with a rate of 26 and IPAP of 20, EPAP of 5. Frequent labs. We will try to resume her home meds, gentle IV fluids, full code. Deep vein thrombosis prophylaxis, letitia French, await pulmonary input. PROGNOSIS: Guarded. BERYL FIELDS DO DR: JOSH/concepcion JOB#: [id number] / [id number]
[2018-04-10 15:00] VITALS: BP 138/84
[2018-04-10] MEDS ORDERED: ERGOCALCIFEROL (VITAMIN D2) 50,000 UNIT CAPSULE. PO SCH (16:00)
[2018-04-10] MEDS: azaTHIOprine 50 MG TABLET PO SCH ×2 (17:44→21:15)
[2018-04-10] MEDS: ASPIRIN CHEWABLE 81 MG TABLET. PO SCH (17:44)
[2018-04-10] MEDS: amLODIPine BESYLATE 5 MG TABLET PO SCH (17:45)
[2018-04-10] MEDS: AZITHROMYCIN 250 MG TABLET. PO SCH (17:45)
[2018-04-10] MEDS: predniSONE 10 MG TABLET PO SCH (17:45)
[2018-04-10] MEDS: GABAPENTIN 300 MG CAPSULE. PO SCH ×2 (17:45→21:15)
[2018-04-10 19:00] VITALS: BP 126/71
[2018-04-10] MEDS: ATORVASTATIN CALCIUM 20 MG TABLET PO SCH (21:00)
[2018-04-10] MEDS: CITALOPRAM 10 MG TABLET. PO SCH (21:15)
[2018-04-10] MEDS: FLUTICASONE 50MCG/NASAL SPRAY 16GM BOTTLE. NS SCH (21:15)
[2018-04-10 23:24] VITALS: BP 117/73
[2018-04-11] MEDS: ALBUTEROL SULFATE 2.5 MG/3 ML NEBU. NEB PRN ×2 (02:20→05:48)
[2018-04-11 03:29] VITALS: BP 111/78
[2018-04-11 05:51] LABS: BILIRUBIN,URINE NEGATIVE (NEG); CLARITY,URINE CLEAR; COLOR,URINE YELLOW; NITRITE,URINE NEGATIVE (NEG); PROTEIN,URINE >=300 mg/dL (NEG-TRACE); UROBILINOGEN,URINE 0.2 mg/dL (0.2 mg/dL)
[2018-04-11 05:58] LABS: HYALINE CASTS, URINE FEW /HPF
[2018-04-11 05:59] LABS: SQUAMOUS EPITHELIAL CELL,UR MOD /LPF
[2018-04-11 06:00] LABS: BACTERIA,URINE FEW /HPF (0-FEW); WBC,URINE OCC /HPF (0-4)
[2018-04-11] MEDS: LEVOTHYROXINE 100 MCG TABLET PO SCH (06:06)
[2018-04-11 07:00] VITALS: BP 122/69
[2018-04-11] MEDS: ALBUTEROL SULFATE 2.5 MG/3 ML NEBU. NEB SCH ×4 (07:29→19:59)
[2018-04-11] MEDS: INSULIN LISPRO 300 UNITS/3 ML INSULN.PEN. SQ SCH ×3 (08:00→17:47)
[2018-04-11] MEDS: AZITHROMYCIN 250 MG TABLET. PO SCH (08:59)
[2018-04-11] MEDS: predniSONE 10 MG TABLET PO SCH (08:59)
[2018-04-11] MEDS: azaTHIOprine 50 MG TABLET PO SCH ×2 (08:59→20:42)
[2018-04-11] MEDS: ASPIRIN CHEWABLE 81 MG TABLET. PO SCH (08:59)
[2018-04-11] MEDS: GABAPENTIN 300 MG CAPSULE. PO SCH ×2 (08:59→20:42)
[2018-04-11] MEDS: FLUTICASONE 50MCG/NASAL SPRAY 16GM BOTTLE. NS SCH ×2 (09:00→20:44)
[2018-04-11] MEDS: amLODIPine BESYLATE 5 MG TABLET PO SCH (09:00)
[2018-04-11 11:00] VITALS: BP 114/54
[2018-04-11] MEDS ORDERED: HYDROcodone/APAP 5/325MG 1 TAB TABLET PO ONE (11:00)
--- NOTE | 2018-04-11 11:03 | CONS ---
DATE OF CONSULTATION: ATTENDING PHYSICIAN: Dr. Brooks. REASON FOR CONSULTATION: Respiratory failure. HISTORY OF PRESENT ILLNESS: The patient is a 67-year-old female who is obese with a BMI of 41. She has a history of oxygen dependent severe COPD with chronic hypercapnia. She has frequent hospitalization. She was admitted to the hospital with increasing dyspnea for the last few days. She said she also had a cough with some yellow brown sputum production. Denied any obvious fevers or chills. No chest pain, no headaches, no nausea or vomiting, no diarrhea, no dysuria, no focal weakness. No increasing pedal edema. I have not seen any ABGs that were drawn in the ER. She had a chest x-ray, which was reviewed by me. There is no acute consolidation seen. Some mild upper lobe parenchymal scarring and questionable blunting of the left costophrenic angle. I have been asked to see her for further evaluation. PAST MEDICAL HISTORY: History of chronic respiratory failure on 4-6 liters of oxygen, history of COPD, history of depression, history of parenchymal scarring, obesity, appendectomy, cervical fusion, cholecystectomy, hip replacement, hysterectomy, tonsillectomy and lung biopsy. ALLERGIES: None. SURGERIES: As discussed above. FAMILY HISTORY: Coronary artery disease. SOCIAL HISTORY: Does not smoke anymore. She smoked for about 25-30 years. REVIEW OF SYSTEMS: Twelve-point system obtained. Pertinent positives discussed in my history of present illness, otherwise noncontributory. All systems that were negative were reviewed as well. MEDICATIONS: Reviewed as listed in the [facility] including albuterol nebs. She is also on Imuran and prednisone 10 mg daily along with antibiotics, Zithromax. PHYSICAL EXAMINATION: GENERAL: She is awake, following commands, in no obvious respiratory distress, but on BiPAP. VITAL SIGNS: Blood pressure is stable, afebrile. HEENT: Sclerae nonicteric. NECK: Supple. LUNGS: With bilateral faint expiratory wheezes. CARDIOVASCULAR: Regular rate and rhythm. ABDOMEN: Soft, obese. EXTREMITIES: With no pitting edema. LABORATORY DATA: Reviewed. White cell count 7.5, hemoglobin 13.4. Influenza screen negative. Chemistries were reviewed as well. IMPRESSION: 1. Msijh-ks-ijemmov hypoxic respiratory failure secondary to acute exacerbation of chronic obstructive pulmonary disease and acute bronchitis. 2. The patient with underlying morbid obesity and overlap syndrome with chronic obstructive pulmonary disease and sleep apnea/obesity hypoventilation syndrome. 3. Acute bronchitis. 4. New consolidation seen on the chest x-ray. RECOMMENDATIONS: 1. Obtain arterial blood gases. 2. Continue BiPAP for now and will wean to baseline nasal cannula once ABGs show improvement. 3. Continue present nebulizers. 4. Continue oral prednisone. 5. Empiric antibiotic. 6. Discussed with RN. We will follow along with you. BREANA CLARK MD DR: EMA/concepcion JOB#: [id number] / [id number]
--- NOTE | 2018-04-11 11:15 | NUR ---
IP: Pt has had a hx of + mrsa screens since 2017 with most recent on 02/15/18. Pt to be in contact precautions until there are 2 negative screens 7 days apart.
--- NOTE | 2018-04-11 14:02 | PDOC ---
PROGRESS NOTES Chief Complaint Chief Complaint [id number] hypoxic respiratory failure secondary to acute exacerbation of chronic obstructive pulmonary disease and acute bronchitis. Morbid obesity and overlap syndrome with chronic obstructive pulmonary disease and sleep apnea/obesity hypoventilation syndrome. Acute bronchitis with consolidation consistent with pneumonia, high risk for gram negative with her structural lung disease Acute encephalopathy - she denies confusion, likely hypercapnic HTN Anxiety Osteoporosis DM Hypothyroidism History of Present Illness History of Present Illness Ms. Avalos is a 67 year old female w/ PMHx of severe COPD, HTN, anxiety, osteoporosis, DM, hypothyroidism who presents with acute respiratory failure with hypercapnea less Confused today, she is asking for her home xanax and lortab. Informed her these were held due to her respiratory failure Chest x-ray have reviewed again, pulmonary congestion with atelectasis and possibly pneumonia Getting Levaquin A/P: Prednisone, nebs, pulm consultation Restart home xanax for anxiety Restart lortab prn Vitals Vitals Vital Signs Date Time Temp Pulse Resp B/P (MAP) Pulse Ox O2 Delivery O2 Flow Rate FiO2 04/11/18 12:00 8.0 04/11/18 11:55 91 Oxy mask 04/11/18 11:00 98.0 94 28 114/54 (74) 98.0 Physical Exam General: Alert, Cooperative Heart: Regular rate Lungs: Wheezing, Other Abdomen: Normal bowel sounds, Soft Extremities: No clubbing, No cyanosis Skin: No rashes, No breakdown Labs LABS Laboratory Tests Test 04/10/18 15:05 04/10/18 16:40 04/10/18 18:05 04/10/18 20:21 Troponin I Quantitative < 0.017 ng/mL (0.000-0.055) < 0.017 ng/mL (0.000-0.055) Glucose (Fingerstick) 168 mg/dL (70-99) 186 mg/dL (70-99) Test 04/11/18 05:38 04/11/18 07:07 04/11/18 11:44 Urine Collection Type Unknown Urine Color Yellow Urine Clarity Clear Urine pH 6.0 Urine Specific [place] 1.015 Urine Protein >=300 mg/dL (NEG-TRACE) Urine Glucose (UA) Negative mg/dL (NEG) Urine Ketones (Stick) Negative mg/dL (NEG) Urine Blood Moderate (NEG) Urine Nitrite Negative (NEG) Urine Bilirubin Negative (NEG) Urine Urobilinogen Dipstick 0.2 mg/dL (0.2 mg/dL) Urine Leukocyte Esterase Negative (NEG) Urine RBC 3-5 /HPF (0-2) Urine WBC Occ /HPF (0-4) Urine Squamous Epithelial Cells Mod /LPF Urine Renal Epithelial Cells Occ /LPF Urine Bacteria Few /HPF (0-FEW) Urine Hyaline Casts Few /HPF Urine Mucus Mod /LPF Glucose (Fingerstick) 177 mg/dL (70-99) 209 mg/dL (70-99) Assessment and Plan Assessmemt and Plan Problems Medical Problems: (1) Acute and chronic respiratory failure ([id number]) Status: Acute (2) COPD exacerbation Status: Acute (3) Hypoxia Status: Acute Comment Review of Relevant I have reviewed the following items john (where applicable) has been applied. Labs Laboratory Tests Test 04/10/18 10:30 04/10/18 12:00 04/10/18 15:05 04/10/18 16:40 White Blood Count 7.5 x10^3/uL (4.0-11.0) Red Blood Count 4.17 x10^6/uL (3.50-5.40) Hemoglobin 13.4 g/dL (12.0-15.5) Hematocrit 40.7 % (36.0-47.0) Mean Corpuscular Volume 97 fL (79-100) Mean Corpuscular Hemoglobin 32 pg (25-35) Mean Corpuscular Hemoglobin Concent 33 g/dL (31-37) Red Cell Distribution Width 14.4 % (11.5-14.5) Platelet Count 154 x10^3/uL (140-400) Neutrophils (%) (Auto) 86 % (31-73) Lymphocytes (%) (Auto) 5 % (24-48) Monocytes (%) (Auto) 9 % (0-9) Eosinophils (%) (Auto) 0 % (0-3) Basophils (%) (Auto) 0 % (0-3) Neutrophils # (Auto) 6.5 x10^3uL (1.8-7.7) Lymphocytes # (Auto) 0.4 x10^3/uL (1.0-4.8) Monocytes # (Auto) 0.6 x10^3/uL (0.0-1.1) Eosinophils # (Auto) 0.0 x10^3/uL (0.0-0.7) Basophils # (Auto) 0.0 x10^3/uL (0.0-0.2) Segmented Neutrophils % 63 % (35-66) Band Neutrophils % 18 % (0-9) Lymphocytes % 7 % (24-48) Monocytes % 11 % (0-10) Myelocytes % 1 % (0-0) Platelet Estimate Adequate (ADEQUATE) Prothrombin Time 13.6 SEC (11.7-14.0) Prothromb Time International Ratio 1.1 (0.8-1.1) Activated Partial Thromboplast Time 31 SEC (24-38) Sodium Level 136 mmol/L (136-145) Potassium Level 4.1 mmol/L (3.5-5.1) Chloride Level 94 mmol/L (98-107) Carbon Dioxide Level 39 mmol/L (21-32) Anion Gap 3 (6-14) Blood Urea Nitrogen 12 mg/dL (7-20) Creatinine 0.7 mg/dL (0.6-1.0) Estimated GFR (Cockcroft-Gault) 84.0 BUN/Creatinine Ratio 17 (6-20) Glucose Level 193 mg/dL (70-99) Lactic Acid Level 0.6 mmol/L (0.4-2.0) Calcium Level 8.5 mg/dL (8.5-10.1) Magnesium Level 1.8 mg/dL (1.8-2.4) Total Bilirubin 0.4 mg/dL (0.2-1.0) Aspartate Amino Transf (AST/SGOT) 19 U/L (15-37) Alanine Aminotransferase (ALT/SGPT) 13 U/L (14-59) Alkaline Phosphatase 77 U/L (46-116) Creatine Kinase 76 U/L (26-192) Creatine Kinase MB (Mass) 0.7 ng/mL (0.0-3.6) Creatine Kinase MB Relative Index 0.9 % (0-4) Troponin I Quantitative < 0.017 ng/mL (0.000-0.055) < 0.017 ng/mL (0.000-0.055) VR-Gji-O-Type Natriuretic Peptide 98 pg/mL (0-124) Total Protein 8.1 g/dL (6.4-8.2) Albumin 3.1 g/dL (3.4-5.0) Albumin/Globulin Ratio 0.6 (1.0-1.7) Influenza Type A Antigen Negative (NEGATIVE) Influenza Type B Antigen Negative (NEGATIVE) Glucose (Fingerstick) 168 mg/dL (70-99) Test 04/10/18 18:05 04/10/18 20:21 04/11/18 05:38 04/11/18 07:07 Troponin I Quantitative < 0.017 ng/mL (0.000-0.055) Glucose (Fingerstick) 186 mg/dL (70-99) 177 mg/dL (70-99) Urine Collection Type Unknown Urine Color Yellow Urine Clarity Clear Urine pH 6.0 Urine Specific [place] 1.015 Urine Protein >=300 mg/dL (NEG-TRACE) Urine Glucose (UA) Negative mg/dL (NEG) Urine Ketones (Stick) Negative mg/dL (NEG) Urine Blood Moderate (NEG) Urine Nitrite Negative (NEG) Urine Bilirubin Negative (NEG) Urine Urobilinogen Dipstick 0.2 mg/dL (0.2 mg/dL) Urine Leukocyte Esterase Negative (NEG) Urine RBC 3-5 /HPF (0-2) Urine WBC Occ /HPF (0-4) Urine Squamous Epithelial Cells Mod /LPF Urine Renal Epithelial Cells Occ /LPF Urine Bacteria Few /HPF (0-FEW) Urine Hyaline Casts Few /HPF Urine Mucus Mod /LPF Test 04/11/18 11:44 Glucose (Fingerstick) 209 mg/dL (70-99) Laboratory Tests Test 04/10/18 15:05 04/10/18 16:40 04/10/18 18:05 04/10/18 20:21 Troponin I Quantitative < 0.017 ng/mL (0.000-0.055) < 0.017 ng/mL (0.000-0.055) Glucose (Fingerstick) 168 mg/dL (70-99) 186 mg/dL (70-99) Test 04/11/18 05:38 04/11/18 07:07 04/11/18 11:44 Urine Collection Type Unknown Urine Color Yellow Urine Clarity Clear Urine pH 6.0 Urine Specific [place] 1.015 Urine Protein >=300 mg/dL (NEG-TRACE) Urine Glucose (UA) Negative mg/dL (NEG) Urine Ketones (Stick) Negative mg/dL (NEG) Urine Blood Moderate (NEG) Urine Nitrite Negative (NEG) Urine Bilirubin Negative (NEG) Urine Urobilinogen Dipstick 0.2 mg/dL (0.2 mg/dL) Urine Leukocyte Esterase Negative (NEG) Urine RBC 3-5 /HPF (0-2) Urine WBC Occ /HPF (0-4) Urine Squamous Epithelial Cells Mod /LPF Urine Renal Epithelial Cells Occ /LPF Urine Bacteria Few /HPF (0-FEW) Urine Hyaline Casts Few /HPF Urine Mucus Mod /LPF Glucose (Fingerstick) 177 mg/dL (70-99) 209 mg/dL (70-99) Microbiology 04/10/18 Blood Culture - Preliminary, Resulted NO GROWTH AFTER 1 DAY Medications Current Medications Albuterol/ Ipratropium (Duoneb) 3 ml 1X ONCE NEB Last administered on at 10:55; Start 04/10/18 at 10:30; Stop 04/10/18 at 10:33; Status DC Dexamethasone Sodium Phosphate (Decadron) 10 mg 1X ONCE IV Last administered on 04/10/18at 10:54; Start 04/10/18 at 10:30; Stop 04/10/18 at 10:33; Status DC Aspirin ([place] Aspirin) 325 mg 1X ONCE PO Last administered on 04/10/18at 10:53 ; Start 04/10/18 at 10:30; Stop 04/10/18 at 10:33; Status DC Ondansetron HCl (Zofran) 4 mg PRN Q8HRS PRN IV NAUSEA/VOMITING; Start 04/10/18 at 12:00; Stop 04/11/18 at 11:59; Status DC Fentanyl Citrate (Fentanyl 2ml Vial) 50 mcg PRN Q2HRS PRN IV PAIN Last administered on 04/11/18at 07:36; Start 04/10/18 at 12:00 Insulin Human Lispro (HumaLOG) 0-5 UNITS TIDWMEALS SQ Last administered on 04/11at 12:40; Start 04/10/18 at 12:00 Dextrose (Dextrose 50%-Water Syringe) 12.5 gm PRN Q15MIN PRN IV SEE COMMENTS; Start 04/10/18 at 12:00 Amlodipine Besylate (Norvasc) 5 mg DAILY PO Last administered on 04/11/18 09: 00; Start 04/10/18 at 14:00 Aspirin (Children'S Aspirin) 81 mg DAILY PO Last administered on 04/11/18 08: 59; Start 04/10/18 at 14:00 Atorvastatin Calcium (Lipitor) 20 mg HS PO ; Start 04/10/18 at 21:00 Azathioprine (Imuran) 50 mg HS PO Last administered on 04/10/18 21:15; Start 04/10/18 at 21:00 Azathioprine (Imuran) 100 mg DAILY08 PO Last administered on 04/11/18 08:59; Start 04/10/18 at 14:00 Azithromycin (Zithromax) 250 mg DAILY PO Last administered on 04/11/18 08:59; Start 04/10/18 at 14:00 Calcium Carbonate/ Glycine (Tums) 500 mg PRN Q6HRS PRN PO INDIGESTION; Start at 13:45 Citalopram Hydrobromide (CeleXA) 20 mg HS PO Last administered on 04/10/18at 21: 15; Start 04/10/18 at 21:00 Docusate Sodium (Colace) 100 mg PRN BID PRN PO HARD STOOLS; Start 04/10/18 at 13:45 Ergocalciferol (Vitamin D2) 50,000 unit QSU PO Last administered on 04/10/18at 17:44; Start 04/10/18 at 16:00 Fluticasone Propionate (Flonase) 1 spray BID NS Last administered on 04/11/18 09:00; Start 04/10/18 at 21:00 Gabapentin (Neurontin) 300 mg BID PO Last administered on 04/11/18 08:59; Start 04/10/18 at 14:00 Levothyroxine Sodium (Synthroid) 100 mcg DAILY06 PO Last administered on 06:06; Start 04/11/18 at 06:00 Prednisone (Prednisone) 10 mg DAILY PO Last administered on 04/11/18 08:59; Start 04/10/18 at 14:00 Albuterol Sulfate (Ventolin Neb Soln) 2.5 mg RTQID NEB Last administered on at 11:51; Start 04/11/18 at 08:00 Albuterol Sulfate (Ventolin Neb Soln) 2.5 mg PRN Q4HRS PRN NEB SHORTNESS OF BREATH Last administered on 04/11/18at 05:48; Start 04/11/18 at 02:15 Acetaminophen/ Hydrocodone Bitart (Lortab 5/325) 1 tab 1X ONCE PO Last administered on 04/11/18at 10:53; Start 04/11/18 at 11:00; Stop 04/11/18 at 11:01 ; Status DC Lactobacillus Rhamnosus (Culturelle) 1 cap BID PO ; Start 04/11/18 at 21:00 Active Scripts Active Azithromycin Tablet (Azithromycin) 250 Mg Tablet 250 Mg PO DAILY Prednisone (Prednisone) 10 Mg Tablet 10 Mg PO UD Take 4 tablets by mouth daily for 3 days, then take 3 tablets by mouth daily for 3 days, then take 2 tablet by mouth daily for 3 days, then take 1 tablet by mouth daily x 3 days, stop. Ambien (Zolpidem Tartrate) 5 Mg Tablet 5 Mg PO PRN QHS PRN Amox Tr-K Clv 875-125 Mg Tab (Amoxicillin/Potassium Clav) 1 Each Tablet 1 Tab PO BID Spiriva (Tiotropium [place]) 18 Mcg Cap.w.dev 1 Cap IH DAILY Advair 500-50 Diskus (Fluticasone/Salmeterol) 1 Each Disk.w.dev 1 Puff IH BID Reported Cetirizine Hcl 10 Mg Tablet 1 Tab PO DAILY PRN Ropinirole Hcl 1 Mg Tablet 1 Mg PO BID Albuterol Sulfate Conc Neb Soln (Albuterol Sulfate) 2.5 Mg/0.5 Ml Vial.neb 2.5 Mg NEB QID Singulair Tablet (Montelukast Sodium) 10 Mg Tablet 10 Mg PO HS Ranitidine Hcl 300 Mg Tablet 300 Mg PO BID Tums (Calcium Carbonate) 200 Mg Tab.chew 400 Mg PO PRN Q6HRS PRN Vitamin D2 (Ergocalciferol (Vitamin D2)) 50,000 Unit Capsule 50,000 Unit PO QSU Multivitamins (Multivitamin) 1 Each Capsule 1 Each PO DAILY [place] (Bimatoprost) 2.5 Ml Drops 1 Drop EACHEYE QHS Melatonin 3 Mg Tablet 10 Mg PO QHS Atorvastatin Calcium 20 Mg Tablet 20 Mg PO HS Amlodipine Besylate 5 Mg Tablet 1 Tab PO DAILY Levothyroxine Sodium 100 Mcg Tablet 100 Mcg PO DAILY06 Fluticasone Propionate Nasal [place] (Fluticasone Propionate) 16 Gm [place].susp 2 [place] NS BID Azathioprine 50 Mg Tablet 50 Mg PO HS Docusate Sodium 100 Mg Capsule 100 Mg PO PRN BID Alprazolam 0.5 Mg Tablet 0.5 Mg PO TID Gabapentin (Gabapentin) 300 Mg Capsule 300 Mg PO BID Albuterol Sulfate Hfa Inhaler (Albuterol Sulfate) 8.5 Gm Hfa.aer.ad 8.5 Gm IH PRN PRN Aspirin 81 Mg Tab.chew 81 Mg PO DAILY Hydrocodone-Apap 7.5-325 (Hydrocodone Bit/Acetaminophen) 1 Each Tablet 1-2 Each PO PRN QID PRN Celexa (Citalopram Hydrobromide) 10 Mg Tablet 20 Mg PO HS Azathioprine 50 Mg Tablet 100 Mg PO DAILY08 Alendronate Sodium 70 Mg Tablet 70 Mg PO QSU Vitals/I & O Vital Sign - Last 24 Hours 04/10/18 04/10/18 04/10/18 04/10/18 14:43 15:00 16:47 17:45 Temp 98.3 98.3 Pulse 95 95 Resp 27 B/P (MAP) 138/84 (102) 138/84 Pulse Ox 6 O2 Delivery BiPAP/CPAP BiPAP/CPAP BiPAP/CPAP 04/10/18 04/10/18 04/10/18 04/10/18 19:00 20:00 21:54 23:24 Temp 98.1 98.1 Pulse 86 88 Resp 22 22 B/P (MAP) 126/71 (89) 117/73 (88) Pulse Ox 90 95 O2 Delivery BiPAP/CPAP Bi-pap BiPAP/CPAP BiPAP/CPAP 04/11/18 04/11/18 04/11/18 04/11/18 00:13 01:39 02:23 03:29 Temp 98.3 98.3 Pulse 80 Resp 22 B/P (MAP) 111/78 (89) Pulse Ox 92 O2 Delivery BiPAP/CPAP BiPAP/CPAP BiPAP/CPAP BiPAP/CPAP 04/11/18 04/11/18 04/11/18 04/11/18 05:11 05:48 07:00 07:36 Temp 97.8 97.8 Pulse 90 Resp 24 18 B/P (MAP) 122/69 (86) Pulse Ox 94 92 O2 Delivery BiPAP/CPAP BiPAP/CPAP BiPAP/CPAP BiPAP/CPAP 04/11/18 04/11/18 04/11/18 04/11/18 07:42 08:00 08:10 09:00 Pulse 90 Resp 22 B/P (MAP) 122/69 Pulse Ox 92 O2 Delivery Oxy mask O2 Flow Rate 8.0 8.0 8.0 04/11/18 04/11/18 04/11/18 04/11/18 10:53 11:00 11:55 12:00 Temp 98.0 98.0 Pulse 94 Resp 20 28 B/P (MAP) 114/54 (74) Pulse Ox 92 92 91 O2 Delivery BiPAP/CPAP Oxy mask O2 Flow Rate 8.0 8.0 8.0 Intake and Output 04/10/18 04/10/18 04/11/18 15:00 23:00 07:00 Intake Total 0 ml 600 ml Output Total 0 ml Balance 0 ml 600 ml MELITON AMRTE MD Apr 11, 2018 14:02
--- NOTE | 2018-04-11 14:57 | EKG ---
[facility] [address] [place] [address] Test Date: 2018-04-10 Test Time: 10:32:10 Pat Name: MARGAUX CHERRY Department: Room: 648 1 Gender: [employer] Installation [employer]: : [id number] Requested By: FRANCIA ROBIN Order Number: [id number] Reading MD: Matteo Gonzáles Measurements Intervals [place] Rate: P: TX: QRS: QRSD: T: QT: QTc: Interpretive Statements Compared to ECG 02/15/2018 19:34:03 No significant changes Electronically Signed On 04-13-2018 9:01:04 [employer]RARY SERVICES ASSISTANT by Matteo Gonzáles
--- NOTE | 2018-04-11 14:57 | NUR ---
SW following pt for anticipated dc needs. Chart reviewed and DW RN. Pt lives at home with spouse and has home 02. RN reported no skilled needs indicated at this time. SW will continue to assess dc needs.
[2018-04-11 15:00] VITALS: BP 105/66
[2018-04-11] MEDS: ALPRAZolam 0.5 MG TABLET PO PRN ×2 (15:15→20:43)
[2018-04-11] MEDS: rOPINIRole 0.25 MG TABLET. PO SCH ×2 (15:15→20:42)
[2018-04-11 19:00] VITALS: BP 119/66
[2018-04-11] MEDS: LACTOBACILLUS RHAMNOSUS GG 1 CAPSULE. PO SCH (20:41)
[2018-04-11] MEDS: CITALOPRAM 10 MG TABLET. PO SCH (20:41)
[2018-04-11] MEDS: HYDROcodone/APAP 7.5/325MG 1 TAB TABLET PO PRN (20:42)
[2018-04-11] MEDS: ATORVASTATIN CALCIUM 20 MG TABLET PO SCH (20:42)
[2018-04-11] MEDS ORDERED: MONTELUKAST SODIUM 10 MG TABLET. PO SCH (21:00)
[2018-04-11 23:00] VITALS: BP 133/64
[2018-04-12] VITALS (16 sets, daily range): BP systolic 0–163; BP diastolic 20–86
[2018-04-12] MEDS: HYDROcodone/APAP 7.5/325MG 1 TAB TABLET PO PRN (04:00)
[2018-04-12] MEDS: ALPRAZolam 0.5 MG TABLET PO PRN ×2 (05:41→13:04)
[2018-04-12] MEDS: LEVOTHYROXINE 100 MCG TABLET PO SCH (05:41)
[2018-04-12] MEDS: ALBUTEROL SULFATE 2.5 MG/3 ML NEBU. NEB SCH ×4 (07:13→19:15)
[2018-04-12] MEDS ORDERED: SODIUM BICARB ADULT 8.4% 50 MEQ/50 ML DISP.SYRIN. ONE (08:00)
[2018-04-12] MEDS ORDERED: CALCIUM CHLORIDE 1,000 MG/10 ML DISP.SYRIN ONE (08:00)
[2018-04-12] MEDS ORDERED: EPINEPHrine SYRINGE 1 MG/10 ML SYRINGE ONE (08:00)
[2018-04-12] MEDS ORDERED: MAGNESIUM SULFATE PREMIX 1 GM/100 ML BAG. IV ONE (08:00)
[2018-04-12] MEDS: INSULIN LISPRO 300 UNITS/3 ML INSULN.PEN. SQ SCH ×3 (08:00→17:00)
[2018-04-12] MEDS: LACTOBACILLUS RHAMNOSUS GG 1 CAPSULE. PO SCH (09:09)
[2018-04-12] MEDS: GABAPENTIN 300 MG CAPSULE. PO SCH (09:09)
[2018-04-12] MEDS: azaTHIOprine 50 MG TABLET PO SCH (09:09)
[2018-04-12] MEDS: AZITHROMYCIN 250 MG TABLET. PO SCH (09:09)
[2018-04-12] MEDS: ASPIRIN CHEWABLE 81 MG TABLET. PO SCH (09:10)
[2018-04-12] MEDS: predniSONE 10 MG TABLET PO SCH (09:10)
[2018-04-12] MEDS: amLODIPine BESYLATE 5 MG TABLET PO SCH (09:10)
[2018-04-12] MEDS: rOPINIRole 0.25 MG TABLET. PO SCH (09:10)
[2018-04-12] MEDS: FLUTICASONE 50MCG/NASAL SPRAY 16GM BOTTLE. NS SCH (09:10)
[2018-04-12] MEDS: ALBUTEROL SULFATE 2.5 MG/3 ML NEBU. NEB PRN ×2 (09:41)
[2018-04-12 11:01] LABS: BASE EXCESS ABG 11 mmol/L (-3-3); HCO3 ABG 45 mmol/L (21-28); PO2 ABG 59 mmHg (65-108); SAT O2 ABG 88 % (92-99)
[2018-04-12 11:03] LABS: PCO2 ABG 117 mmHg (35-46)
[2018-04-12 11:04] LABS: FIO2 ABG 40
--- NOTE | 2018-04-12 11:05 | PDOC ---
PULMONARY PROGRESS NOTES Subjective pt with increase soa Vitals Vital Signs Date Time Temp Pulse Resp B/P (MAP) Pulse Ox O2 Delivery O2 Flow Rate FiO2 04/12/18 09:42 95 Oxy mask 8.0 04/12/18 09:10 93 163/80 04/12/18 07:00 97.5 25 97.5 General: Alert, Mild Distress Lungs: Other (decrease bs) Cardiovascular: S1, S2 Abdomen: Soft, Non-tender, Other Neuro Exam: Alert Extremities: No Edema Skin: Warm Labs Laboratory Tests Test 04/10/18 12:00 04/10/18 15:05 04/10/18 16:40 04/10/18 18:05 Influenza Type A Antigen Negative (NEGATIVE) Influenza Type B Antigen Negative (NEGATIVE) Troponin I Quantitative < 0.017 ng/mL (0.000-0.055) < 0.017 ng/mL (0.000-0.055) Glucose (Fingerstick) 168 mg/dL (70-99) Test 04/10/18 20:21 04/11/18 05:38 04/11/18 07:07 04/11/18 11:44 Glucose (Fingerstick) 186 mg/dL (70-99) 177 mg/dL (70-99) 209 mg/dL (70-99) Urine Collection Type Unknown Urine Color Yellow Urine Clarity Clear Urine pH 6.0 Urine Specific [place] 1.015 Urine Protein >=300 mg/dL (NEG-TRACE) Urine Glucose (UA) Negative mg/dL (NEG) Urine Ketones (Stick) Negative mg/dL (NEG) Urine Blood Moderate (NEG) Urine Nitrite Negative (NEG) Urine Bilirubin Negative (NEG) Urine Urobilinogen Dipstick 0.2 mg/dL (0.2 mg/dL) Urine Leukocyte Esterase Negative (NEG) Urine RBC 3-5 /HPF (0-2) Urine WBC Occ /HPF (0-4) Urine Squamous Epithelial Cells Mod /LPF Urine Renal Epithelial Cells Occ /LPF Urine Bacteria Few /HPF (0-FEW) Urine Hyaline Casts Few /HPF Urine Mucus Mod /LPF Test 04/11/18 16:46 04/11/18 21:08 04/12/18 07:47 Glucose (Fingerstick) 165 mg/dL (70-99) 160 mg/dL (70-99) 134 mg/dL (70-99) Laboratory Tests Test 04/11/18 11:44 04/11/18 16:46 04/11/18 21:08 04/12/18 07:47 Glucose (Fingerstick) 209 mg/dL (70-99) 165 mg/dL (70-99) 160 mg/dL (70-99) 134 mg/dL (70-99) Medications Active Scripts Medications Dose Route/Sig Max Daily Dose Days Date Category Dose Instructions Cetirizine Hcl 10 Mg Tablet 1 Tab PO DAILY PRN 08/05/17 Reported Azithromycin Tablet (Azithromycin) 250 Mg Tablet 250 Mg PO DAILY 05/16/17 Rx Prednisone (Prednisone) 10 Mg Tablet 10 Mg PO UD 05/16/17 Rx Take 4 tablets by mouth daily for 3 days, then take 3 tablets by mouth daily for 3 days, then take 2 tablet by mouth daily for 3 days, then take 1 tablet by mouth daily x 3 days, stop. Ambien (Zolpidem Tartrate) 5 Mg Tablet 5 Mg PO PRN QHS PRN 01/25/17 Rx Amox Tr-K Clv 875-125 Mg Tab (Amoxicillin/Potassium Clav) 1 Each Tablet 1 Tab PO BID 01/25/17 Rx Spiriva (Tiotropium [place]) 18 Mcg Cap.w.dev 1 Cap IH DAILY 01/25/17 Rx Advair 500-50 Diskus (Fluticasone/Salmeterol) 1 Each Disk.w.dev 1 Puff IH BID 01/25/17 Rx Ropinirole Hcl 1 Mg Tablet 1 Mg PO BID 02/24/16 Reported Albuterol Sulfate Conc Neb Soln (Albuterol Sulfate) 2.5 Mg/0.5 Ml Vial.neb 2.5 Mg NEB QID 11/16/14 Reported Singulair Tablet (Montelukast Sodium) 10 Mg Tablet 10 Mg PO HS 11/16/14 Reported Ranitidine Hcl 300 Mg Tablet 300 Mg PO BID 11/16/14 Reported Tums (Calcium Carbonate) 200 Mg Tab.chew 400 Mg PO PRN Q6HRS PRN 11/16/14 Reported Vitamin D2 (Ergocalciferol (Vitamin D2)) 50,000 Unit Capsule 50,000 Unit PO QSU 11/16/14 Reported Multivitamins (Multivitamin) 1 Each Capsule 1 Each PO DAILY 04/21/14 Reported [place] (Bimatoprost) 2.5 Ml Drops 1 Drop EACHEYE QHS 04/21/14 Reported Melatonin 3 Mg Tablet 10 Mg PO QHS 04/21/14 Reported Atorvastatin Calcium 20 Mg Tablet 20 Mg PO HS 04/21/14 Reported Amlodipine Besylate 5 Mg Tablet 1 Tab PO DAILY 04/21/14 Reported Levothyroxine Sodium 100 Mcg Tablet 100 Mcg PO DAILY06 04/21/14 Reported Fluticasone Propionate Nasal [place] (Fluticasone Propionate) 16 Gm [place].susp 2 [place] NS BID 04/21/14 Reported Azathioprine 50 Mg Tablet 50 Mg PO HS 04/21/14 Reported Docusate Sodium 100 Mg Capsule 100 Mg PO PRN BID 05/03/13 Reported Alprazolam 0.5 Mg Tablet 0.5 Mg PO TID 05/03/13 Reported Gabapentin (Gabapentin) 300 Mg Capsule 300 Mg PO BID 05/03/13 Reported Albuterol Sulfate Hfa Inhaler (Albuterol Sulfate) 8.5 Gm Hfa.aer.ad 8.5 Gm IH PRN PRN 05/03/13 Reported Aspirin 81 Mg Tab.chew 81 Mg PO DAILY 05/03/13 Reported Hydrocodone-Apap 7.5-325 (Hydrocodone Bit/Acetaminophen) 1 Each Tablet 1-2 Each PO PRN QID PRN 05/03/13 Reported Celexa (Citalopram Hydrobromide) 10 Mg Tablet 20 Mg PO HS 05/03/13 Reported Azathioprine 50 Mg Tablet 100 Mg PO DAILY08 05/03/13 Reported Alendronate Sodium 70 Mg Tablet 70 Mg PO QSU 05/03/13 Reported Impression . 1. [id number] hypoxic respiratory failure secondary to acute exacerbation of chronic obstructive pulmonary disease and acute bronchitis. worsening hypercapnia today ( PH 7.20, PCO2 117) 2. The patient with underlying morbid obesity and overlap syndrome with chronic obstructive pulmonary disease and sleep apnea/obesity hypoventilation syndrome. 3. Acute bronchitis. 4. New consolidation seen on the chest x-ray. Plan . 1. STAT arterial blood gases reviewed. Transfer to ICU 2. BiPAP with new settings. IPAP 28, R/R 28. repeat ABG in 2 hrs. Hold off on intubation 3. Continue present nebulizers. 4. Continue oral prednisone. 5. Empiric antibiotic. 6. Discussed with RN./ RT BREANA CLARK MD Apr 12, 2018 11:05
--- NOTE | 2018-04-12 11:44 | NUR ---
ABG blood gas reported to Dr. Sanchez who ordered patient transfer to ICU. Report called to GRACIE Mackey and patient's spouse, Johny Avalos called and notified that patient was transported to room 114.
--- NOTE | 2018-04-12 12:22 | NUR ---
Orders received. Chart reveiwed. Pt transferred to ICU after orders written and will need new orders to initiate therapy. Will await new orders once medically stable. Addendum: 04/12/18 at 1223 by ROSALINA MCKEE PT Amended: Links added.
[2018-04-12] MEDS ORDERED: PROCHLORPERAZINE 10 MG/2 ML VIAL. IV PRN (12:45)
[2018-04-12] MEDS ORDERED: ONDANSETRON PF 4 MG/2 ML VIAL. IV PRN (12:45)
[2018-04-12 13:55] LABS: BASE EXCESS ABG 13 mmol/L (-3-3); HCO3 ABG 47 mmol/L (21-28)
[2018-04-12] MEDS ORDERED: MIDAZOLAM HCL/PF 5 MG/5 ML VIAL. ONE (14:27)
[2018-04-12] MEDS ORDERED: PROPOFOL 100 ML IV ONE (14:27)
[2018-04-12] MEDS ORDERED: SUCCINYLCHOLINE 200 MG/10 ML VIAL. IV ONE (14:45)
[2018-04-12] MEDS ORDERED: PROPOFOL 100 ML IV PRN (14:45)
[2018-04-12] MEDS ORDERED: MIDAZOLAM 100mg/100ml NS BAG 100 ML IV PRN (14:45)
[2018-04-12 15:09] LABS: FIO2 ABG 40; PCO2 ABG 125 mmHg (35-46); PO2 ABG < 42 mmHg (65-108); SAT O2 ABG 68 % (92-99)
--- NOTE | 2018-04-12 16:06 | PDOC ---
PROGRESS NOTES Chief Complaint Chief Complaint [id number] hypoxic respiratory failure secondary to acute exacerbation of chronic obstructive pulmonary disease and acute bronchitis. Morbid obesity and overlap syndrome with chronic obstructive pulmonary disease and sleep apnea/obesity hypoventilation syndrome. Acute bronchitis with consolidation consistent with pneumonia, high risk for gram negative with her structural lung disease Acute encephalopathy - she denies confusion, likely hypercapnic HTN Anxiety Osteoporosis DM Hypothyroidism History of Present Illness History of Present Illness Ms. Avalos is a 67 year old female w/ PMHx of severe COPD, HTN, anxiety, osteoporosis, DM, hypothyroidism who presents with acute respiratory failure with hypercapnea 04/11: less Confused today, she is asking for her home xanax and lortab. Informed her these were held due to her respiratory failure. Chest x-ray have reviewed again, pulmonary congestion with atelectasis and possibly pneumonia Overnight on BIPAP, tried O2. This morning she was jang, placed on BIPAP, ABG consistent with PCO2 > 100. Transferred to ICU. A/P: Prednisone, nebs, pulm consultation Hold xanax for anxiety Minimize lortab prn ICU transfer today Vitals Vitals Vital Signs Date Time Temp Pulse Resp B/P (MAP) Pulse Ox O2 Delivery O2 Flow Rate FiO2 04/12/18 15:10 100 Ventilator 04/12/18 12:00 8.0 04/12/18 11:20 114 28 159/86 (110) 04/12/18 11:00 97.6 97.6 Physical Exam General: Alert, Cooperative Heart: Regular rate Lungs: Other (decrease bs) Abdomen: Normal bowel sounds, Soft Extremities: No clubbing, No cyanosis Skin: No rashes, No breakdown Labs LABS Laboratory Tests Test 04/11/18 16:46 04/11/18 21:08 04/12/18 07:47 04/12/18 10:50 Nasal Screen MRSA (PCR) Positive (Negative) Glucose (Fingerstick) 165 mg/dL (70-99) 160 mg/dL (70-99) 134 mg/dL (70-99) O2 Saturation 88 % (92-99) Arterial Blood pH 7.20 (7.35-7.45) Arterial Blood pCO2 at Patient Temp 117 mmHg (35-46) Arterial Blood pO2 at Patient Temp 59 mmHg (65-108) Arterial Blood HCO3 45 mmol/L (21-28) Arterial Blood Base Excess 11 mmol/L (-3-3) FiO2 40 Test 04/12/18 12:21 04/12/18 14:00 Glucose (Fingerstick) 188 mg/dL (70-99) O2 Saturation 68 % (92-99) Arterial Blood pH 7.20 (7.35-7.45) Arterial Blood pCO2 at Patient Temp 125 mmHg (35-46) Arterial Blood pO2 at Patient Temp < 42 mmHg (65-108) Arterial Blood HCO3 47 mmol/L (21-28) Arterial Blood Base Excess 13 mmol/L (-3-3) FiO2 40 Assessment and Plan Assessmemt and Plan Problems Medical Problems: (1) Acute and chronic respiratory failure ([id number]) Status: Acute (2) COPD exacerbation Status: Acute (3) Hypoxia Status: Acute Comment Review of Relevant I have reviewed the following items john (where applicable) has been applied. Labs Laboratory Tests Test 04/10/18 16:40 04/10/18 18:05 04/10/18 20:21 04/11/18 05:38 Glucose (Fingerstick) 168 mg/dL (70-99) 186 mg/dL (70-99) Troponin I Quantitative < 0.017 ng/mL (0.000-0.055) Urine Collection Type Unknown Urine Color Yellow Urine Clarity Clear Urine pH 6.0 Urine Specific Kid[place] 1.015 Urine Protein >=300 mg/dL (NEG-TRACE) Urine Glucose (UA) Negative mg/dL (NEG) Urine Ketones (Stick) Negative mg/dL (NEG) Urine Blood Moderate (NEG) Urine Nitrite Negative (NEG) Urine Bilirubin Negative (NEG) Urine Urobilinogen Dipstick 0.2 mg/dL (0.2 mg/dL) Urine Leukocyte Esterase Negative (NEG) Urine RBC 3-5 /HPF (0-2) Urine WBC Occ /HPF (0-4) Urine Squamous Epithelial Cells Mod /LPF Urine Renal Epithelial Cells Occ /LPF Urine Bacteria Few /HPF (0-FEW) Urine Hyaline Casts Few /HPF Urine Mucus Mod /LPF Test 04/11/18 07:07 04/11/18 11:44 04/11/18 16:46 04/11/18 21:08 Glucose (Fingerstick) 177 mg/dL (70-99) 209 mg/dL (70-99) 165 mg/dL (70-99) 160 mg/dL (70-99) Nasal Screen MRSA (PCR) Positive (Negative) Test 04/12/18 07:47 04/12/18 10:50 04/12/18 12:21 04/12/18 14:00 Glucose (Fingerstick) 134 mg/dL (70-99) 188 mg/dL (70-99) O2 Saturation 88 % (92-99) 68 % (92-99) Arterial Blood pH 7.20 (7.35-7.45) 7.20 (7.35-7.45) Arterial Blood pCO2 at Patient Temp 117 mmHg (35-46) 125 mmHg (35-46) Arterial Blood pO2 at Patient Temp 59 mmHg (65-108) < 42 mmHg (65-108) Arterial Blood HCO3 45 mmol/L (21-28) 47 mmol/L (21-28) Arterial Blood Base Excess 11 mmol/L (-3-3) 13 mmol/L (-3-3) FiO2 40 40 Laboratory Tests Test 04/11/18 16:46 04/11/18 21:08 04/12/18 07:47 04/12/18 10:50 Nasal Screen MRSA (PCR) Positive (Negative) Glucose (Fingerstick) 165 mg/dL (70-99) 160 mg/dL (70-99) 134 mg/dL (70-99) O2 Saturation 88 % (92-99) Arterial Blood pH 7.20 (7.35-7.45) Arterial Blood pCO2 at Patient Temp 117 mmHg (35-46) Arterial Blood pO2 at Patient Temp 59 mmHg (65-108) Arterial Blood HCO3 45 mmol/L (21-28) Arterial Blood Base Excess 11 mmol/L (-3-3) FiO2 40 Test 04/12/18 12:21 04/12/18 14:00 Glucose (Fingerstick) 188 mg/dL (70-99) O2 Saturation 68 % (92-99) Arterial Blood pH 7.20 (7.35-7.45) Arterial Blood pCO2 at Patient Temp 125 mmHg (35-46) Arterial Blood pO2 at Patient Temp < 42 mmHg (65-108) Arterial Blood HCO3 47 mmol/L (21-28) Arterial Blood Base Excess 13 mmol/L (-3-3) FiO2 40 Microbiology 04/10/18 Blood Culture - Preliminary, Resulted NO GROWTH AFTER 1 DAY Medications Current Medications Albuterol/ Ipratropium (Duoneb) 3 ml 1X ONCE NEB Last administered on 10:55; Start 04/10/18 at 10:30; Stop 04/10/18 at 10:33; Status DC Dexamethasone Sodium Phosphate (Decadron) 10 mg 1X ONCE IV Last administered on 04/10/18at 10:54; Start 04/10/18 at 10:30; Stop 04/10/18 at 10:33; Status DC Aspirin (Adriana Aspirin) 325 mg 1X ONCE PO Last administered on 04/10/18at 10:53 ; Start 04/10/18 at 10:30; Stop 04/10/18 at 10:33; Status DC Ondansetron HCl (Zofran) 4 mg PRN Q8HRS PRN IV NAUSEA/VOMITING; Start 04/10/18 at 12:00; Stop 04/11/18 at 11:59; Status DC Fentanyl Citrate (Fentanyl 2ml Vial) 50 mcg PRN Q2HRS PRN IV PAIN Last administered on 04/11/18 07:36; Start 04/10/18 at 12:00 Insulin Human Lispro (HumaLOG) 0-5 UNITS TIDWMEALS SQ Last administered on 04/11 17:47; Start 04/10/18 at 12:00 Dextrose (Dextrose 50%-Water Syringe) 12.5 gm PRN Q15MIN PRN IV SEE COMMENTS; Start 04/10/18 at 12:00 Amlodipine Besylate (Norvasc) 5 mg DAILY PO Last administered on 04/12/18 09: 10; Start 04/10/18 at 14:00 Aspirin (Children'S Aspirin) 81 mg DAILY PO Last administered on 04/12/18 09: 10; Start 04/10/18 at 14:00 Atorvastatin Calcium (Lipitor) 20 mg HS PO Last administered on 04/11/18 20:42 ; Start 04/10/18 at 21:00 Azathioprine (Imuran) 50 mg HS PO Last administered on 04/11/18 20:42; Start 04/10/18 at 21:00 Azathioprine (Imuran) 100 mg DAILY08 PO Last administered on 04/12/18 09:09; Start 04/10/18 at 14:00 Azithromycin (Zithromax) 250 mg DAILY PO Last administered on 04/12/18 09:09; Start 04/10/18 at 14:00 Calcium Carbonate/ Glycine (Tums) 500 mg PRN Q6HRS PRN PO INDIGESTION; Start at 13:45 Citalopram Hydrobromide (CeleXA) 20 mg HS PO Last administered on 04/11/18at 20: 41; Start 04/10/18 at 21:00 Docusate Sodium (Colace) 100 mg PRN BID PRN PO HARD STOOLS; Start 04/10/18 at 13:45 Ergocalciferol (Vitamin D2) 50,000 unit QSU PO Last administered on 04/10/18 17:44; Start 04/10/18 at 16:00 Fluticasone Propionate (Flonase) 1 spray BID NS Last administered on 04/12/18 09:10; Start 04/10/18 at 21:00 Gabapentin (Neurontin) 300 mg BID PO Last administered on 04/12/18 09:09; Start 04/10/18 at 14:00 Levothyroxine Sodium (Synthroid) 100 mcg DAILY06 PO Last administered on 05:41; Start 04/11/18 at 06:00 Prednisone (Prednisone) 10 mg DAILY PO Last administered on 04/12/18 09:10; Start 04/10/18 at 14:00 Albuterol Sulfate (Ventolin Neb Soln) 2.5 mg RTQID NEB Last administered on 11:42; Start 04/11/18 at 08:00 Albuterol Sulfate (Ventolin Neb Soln) 2.5 mg PRN Q4HRS PRN NEB SHORTNESS OF BREATH Last administered on 04/12/18 09:41; Start 04/11/18 at 02:15 Acetaminophen/ Hydrocodone Bitart (Lortab 5/325) 1 tab 1X ONCE PO Last administered on 04/11/18 10:53; Start 04/11/18 at 11:00; Stop 04/11/18 at 11:01 ; Status DC Lactobacillus Rhamnosus (Culturelle) 1 cap BID PO Last administered on 09:09; Start 04/11/18 at 21:00; Stop 04/12/18 at 14:04; Status DC Alprazolam (Xanax) 0.25 mg PRN TID PRN PO ANXIETY Last administered on 13:04; Start 04/11/18 at 14:00 Acetaminophen/ Hydrocodone Bitart (Lortab 7.5/325) 1 tab PRN QID PRN PO PAIN Last administered on 04/12/18 04:00; Start 04/11/18 at 14:00 Montelukast Sodium (Singulair) 10 mg QHS PO Last administered on 04/11/18 20: 41; Start 04/11/18 at 21:00 Ropinirole HCl (Requip) 0.5 mg BID PO Last administered on 04/12/18 09:10; Start 04/11/18 at 14:00 Ondansetron HCl (Zofran) 4 mg PRN Q6HRS PRN IV NAUSEA/VOMITING, 1ST CHOICE Last administered on 04/12/18 13:04; Start 04/12/18 at 12:45 Prochlorperazine Edisylate (Compazine) 10 mg PRN Q6HRS PRN IV NAUSEA/VOMITING, 2ND CHOICE; Start 04/12/18 at 12:45 Heparin Sodium (Porcine) (Heparin Sodium) 5,000 unit Q12HR SQ ; Start 04/12/18 at 21:00 Propofol 100 ml @ As Directed STK-MED ONCE IV ; Start 04/12/18 at 14:27; Stop 04/12/18 at 14:28; Status DC Midazolam HCl (Versed) 5 mg STK-MED ONCE .ROUTE ; Start 04/12/18 at 14:27; Stop 04/12/18 at 14:28; Status DC Succinylcholine Chloride (Anectine) 100 mg 1X ONCE IV Last administered on 14:59; Start 04/12/18 at 14:45; Stop 04/12/18 at 14:47; Status DC Fentanyl Citrate 30 ml @ 0 mls/hr CONT PRN IV SEE PROTOCOL; Start 04/12/18 at 14:45 Propofol 100 ml @ 0 mls/hr CONT PRN IV SEE PROTOCOL Last administered on at 15:01; Start 04/12/18 at 14:45 Chlorhexidine Gluconate (Peridex) 15 ml BID MM ; Start 04/12/18 at 21:00 Midazolam HCl 100 ml @ 0 mls/hr CONT PRN IV SEE PROTOCOL Last administered on at 15:17; Start 04/12/18 at 14:45 Active Scripts Active Azithromycin Tablet (Azithromycin) 250 Mg Tablet 250 Mg PO DAILY Prednisone (Prednisone) 10 Mg Tablet 10 Mg PO UD Take 4 tablets by mouth daily for 3 days, then take 3 tablets by mouth daily for 3 days, then take 2 tablet by mouth daily for 3 days, then take 1 tablet by mouth daily x 3 days, stop. Ambien (Zolpidem Tartrate) 5 Mg Tablet 5 Mg PO PRN QHS PRN Amox Tr-K Clv 875-125 Mg Tab (Amoxicillin/Potassium Clav) 1 Each Tablet 1 Tab PO BID Spiriva (Tiotropium [place]) 18 Mcg Cap.w.dev 1 Cap IH DAILY Advair 500-50 Diskus (Fluticasone/Salmeterol) 1 Each Disk.w.dev 1 Puff IH BID Reported Cetirizine Hcl 10 Mg Tablet 1 Tab PO DAILY PRN Ropinirole Hcl 1 Mg Tablet 1 Mg PO BID Albuterol Sulfate Conc Neb Soln (Albuterol Sulfate) 2.5 Mg/0.5 Ml Vial.neb 2.5 Mg NEB QID Singulair Tablet (Montelukast Sodium) 10 Mg Tablet 10 Mg PO HS Ranitidine Hcl 300 Mg Tablet 300 Mg PO BID Tums (Calcium Carbonate) 200 Mg Tab.chew 400 Mg PO PRN Q6HRS PRN Vitamin D2 (Ergocalciferol (Vitamin D2)) 50,000 Unit Capsule 50,000 Unit PO QSU Multivitamins (Multivitamin) 1 Each Capsule 1 Each PO DAILY Lumigan (Bimatoprost) 2.5 Ml Drops 1 Drop EACHEYE QHS Melatonin 3 Mg Tablet 10 Mg PO QHS Atorvastatin Calcium 20 Mg Tablet 20 Mg PO HS Amlodipine Besylate 5 Mg Tablet 1 Tab PO DAILY Levothyroxine Sodium 100 Mcg Tablet 100 Mcg PO DAILY06 Fluticasone Propionate Nasal [place] (Fluticasone Propionate) 16 Gm [place].susp 2 [place] NS BID Azathioprine 50 Mg Tablet 50 Mg PO HS Docusate Sodium 100 Mg Capsule 100 Mg PO PRN BID Alprazolam 0.5 Mg Tablet 0.5 Mg PO TID Gabapentin (Gabapentin) 300 Mg Capsule 300 Mg PO BID Albuterol Sulfate Hfa Inhaler (Albuterol Sulfate) 8.5 Gm Hfa.aer.ad 8.5 Gm IH PRN PRN Aspirin 81 Mg Tab.chew 81 Mg PO DAILY Hydrocodone-Apap 7.5-325 (Hydrocodone Bit/Acetaminophen) 1 Each Tablet 1-2 Each PO PRN QID PRN Celexa (Citalopram Hydrobromide) 10 Mg Tablet 20 Mg PO HS Azathioprine 50 Mg Tablet 100 Mg PO DAILY08 Alendronate Sodium 70 Mg Tablet 70 Mg PO QSU Vitals/I & O Vital Sign - Last 24 Hours 04/11/18 04/11/18 04/11/18 04/11/18 19:00 20:00 20:02 20:42 Temp 98.3 98.3 Pulse 85 Resp 32 B/P (MAP) 119/66 (83) Pulse Ox 98 96 O2 Delivery Simple Mask Venturi Mask Oxy mask Venturi Mask O2 Flow Rate 6.0 5.0 8.0 5.0 04/11/18 04/11/18 04/11/18 04/11/18 21:42 22:29 23:00 23:28 Temp 98.5 98.5 Pulse 84 Resp 24 B/P (MAP) 133/64 (87) Pulse Ox 92 92 92 O2 Delivery BiPAP/CPAP BiPAP/CPAP BiPAP/CPAP O2 Flow Rate 5.0 04/12/18 04/12/18 04/12/18 04/12/18 00:00 00:00 02:55 03:00 Temp 98.2 98.2 Pulse 79 Resp 23 B/P (MAP) 122/60 (80) Pulse Ox 92 90 O2 Delivery BiPAP/CPAP BiPAP/CPAP BiPAP/CPAP O2 Flow Rate 8.0 04/12/18 04/12/18 04/12/18 04/12/18 04:00 04:00 05:00 05:27 O2 Delivery BiPAP/CPAP BiPAP/CPAP BiPAP/CPAP O2 Flow Rate 8.0 04/12/18 04/12/18 04/12/18 04/12/18 07:00 07:14 08:00 08:00 Temp 97.5 97.5 Pulse 93 Resp 25 B/P (MAP) 163/80 (107) Pulse Ox 88 90 O2 Delivery BiPAP/CPAP BiPAP/CPAP Venturi Mask O2 Flow Rate 5.0 5.0 04/12/18 04/12/18 04/12/18 04/12/18 09:10 09:42 11:00 11:20 Temp 97.6 97.6 Pulse 93 109 114 Resp 28 28 B/P (MAP) 163/80 131/75 (93) 159/86 (110) Pulse Ox 95 89 90 O2 Delivery Oxy mask BiPAP/CPAP BiPAP/CPAP O2 Flow Rate 8.0 04/12/18 04/12/18 04/12/18 11:25 12:00 15:10 Pulse Ox 90 100 O2 Delivery BiPAP/CPAP Ventilator O2 Flow Rate 8.0 Intake and Output 04/11/18 04/11/18 04/12/18 15:00 23:00 07:00 Intake Total 480 ml 150 ml 400 ml Output Total 0 ml Balance 480 ml 150 ml 400 ml MELITON MARTE MD Apr 12, 2018 16:05
--- NOTE | 2018-04-12 16:14 | RAD ---
Portable chest, 04/10/2018: HISTORY: Intubation Comparison is made to a study from 04/10/2018. An ET tube has been inserted with its tip located 5-6 cm above the lelia. The heart size is normal. There are hazy basilar opacities raising the possibility of pleural fluid layering posteriorly with underlying atelectasis/infiltrate. The portable technique may be contributing to this appearance. The upper lung humphreys are clear. IMPRESSION: 1. The ET tube is in satisfactory position. 2. Probable small pleural effusions and basilar infiltrates. Electronically signed by: Dev Arciniega MD (04/12/2018 4:11 PM) [facility]
[2018-04-12 17:02] LABS: BASE EXCESS ABG 7 mmol/L (-3-3); HCO3 ABG 35 mmol/L (21-28); PO2 ABG 144 mmHg (65-108); SAT O2 ABG 99 % (92-99)
[2018-04-12 17:05] LABS: FIO2 ABG 50; PCO2 ABG 61 mmHg (35-46)
[2018-04-12] MEDS ORDERED: DEXTROSE 50% 25 GM / 50ML DISP.SYRIN. IV PRN (18:00)
[2018-04-12 18:16] LABS: HEMATOCRIT 36.8 % (36.0-47.0); HEMOGLOBIN 12.2 g/dL (12.0-15.5); RED BLOOD COUNT 3.75 x10^6/uL (3.50-5.40); RED CELL DISTRIBUTION WIDTH 14.5 % (11.5-14.5); WHITE BLOOD COUNT 8.1 x10^3/uL (4.0-11.0)
[2018-04-12 18:23] LABS: CALCIUM 8.1 mg/dL (8.5-10.1); CREATININE 0.9 mg/dL (0.6-1.0); GFR 62.8; POTASSIUM 5.3 mmol/L (3.5-5.1)
--- NOTE | 2018-04-12 18:40 | NUR ---
Patient transferred to ICU at 1120 on BIPAP. ABG at 1415 showing no improvement, order received from Dr. Sanchez to intubate. Attempted propofol IV, unable to obtain RAAS +3 and patient low BP 66/47 on R radial. Sedation switched to versed and fentanyl drip at 1515, BP 92/60. Patient now resting well, RAAS +3, BP 107/65 on R calf.
[2018-04-12] MEDS ORDERED: HEPARIN for SUB-Q USE 5,000 UNIT/ML VIAL. SQ SCH (21:00)
[2018-04-12] MEDS ORDERED: CHLORHEXIDINE 0.12% 15 ML MOUTHWASH. MM SCH (21:00)
[2018-04-12] MEDS ORDERED: NOREPINEPHRIN 8MG/250ML PREMIX 250 ML IV PRN (21:00)
--- NOTE | 2018-04-12 21:00 | NUR ---
PATIENT IN BRADYCARDIA TO [facility]. CODE BLUE CALLED. SEE CODE BLUE SHEET FOR DETAILS. DR. AWAN AT BEDSIDE AND CALLED THE CODE. FAMILY NOTIFIED OF PATIENT AND FAMILY ADVISED THEY ARE EN ROUTE TO HOSPITAL. FAMILY PRESENT AT BEDSIDE AND HOME IMFORMATION RECEIVED. [facility] NOTIFIED AND WAS ADVISED BY RAFAELA THAT PATIENT WILL NOT BE A CANDIDATE, FAMILY DECLINED. BELONGINGS GIVEN TO FAMILY.
--- NOTE | 2018-04-12 21:38 | PDOC ---
PROGRESS NOTES Chief Complaint Chief Complaint Code blue with subsequent passing of the patient [id number] hypoxic respiratory failure secondary to acute exacerbation of chronic obstructive pulmonary disease and acute bronchitis. Morbid obesity and overlap syndrome with chronic obstructive pulmonary disease and sleep apnea/obesity hypoventilation syndrome. Acute bronchitis with consolidation consistent with pneumonia, high risk for gram negative with her structural lung disease Acute encephalopathy - she denies confusion, likely hypercapnic HTN Anxiety Osteoporosis DM Hypothyroidism History of Present Illness History of Present Illness Ms. Avalos is a 67 year old female w/ PMHx of severe COPD, HTN, anxiety, osteoporosis, DM, hypothyroidism who presents with acute respiratory failure with hypercapnea 04/11: less Confused today, she is asking for her home xanax and lortab. Informed her these were held due to her respiratory failure. Chest x-ray have reviewed again, pulmonary congestion with atelectasis and possibly pneumonia Overnight on BIPAP, tried O2. This morning she was jang, placed on BIPAP, ABG consistent with PCO2 > 100. Transferred to ICU. A/P: Prednisone, nebs, pulm consultation Hold xanax for anxiety Minimize lortab prn Code myrtle called at 2031, i arrived at the scene with asystole on the monitor, patient BP was below 65 MAP at the time of the nursing staff call minutes prior to the code. Patient had been transferred to the icu for better monitoring and throughout the day decompensated requiring mechanical ventilation. Patient received ACLS for 26 minutes unfortunately the patient could not recover from the asystole. Her pupils were fixed and dilated, mottling ensued at about 20 minutes. Patient was on epi drip and iv fluid resuscitation. She was pronounced at 2057. Absent breath sounds, no cardiac sounds and no pupillary reflex on physical exam Vitals Vitals Vital Signs Date Time Temp Pulse Resp B/P (MAP) Pulse Ox O2 Delivery O2 Flow Rate FiO2 04/12/18 19:15 99 Ventilator 04/12/18 18:08 114 20 107/65 (79) 04/12/18 16:00 8.0 04/12/18 11:00 97.6 97.6 Labs LABS Laboratory Tests Test 04/12/18 07:47 04/12/18 10:50 04/12/18 12:21 04/12/18 14:00 Glucose (Fingerstick) 134 mg/dL (70-99) 188 mg/dL (70-99) O2 Saturation 88 % (92-99) 68 % (92-99) Arterial Blood pH 7.20 (7.35-7.45) 7.20 (7.35-7.45) Arterial Blood pCO2 at Patient Temp 117 mmHg (35-46) 125 mmHg (35-46) Arterial Blood pO2 at Patient Temp 59 mmHg (65-108) < 42 mmHg (65-108) Arterial Blood HCO3 45 mmol/L (21-28) 47 mmol/L (21-28) Arterial Blood Base Excess 11 mmol/L (-3-3) 13 mmol/L (-3-3) FiO2 40 40 Test 04/12/18 16:49 04/12/18 17:56 04/12/18 18:05 O2 Saturation 99 % (92-99) Arterial Blood pH 7.37 (7.35-7.45) Arterial Blood pCO2 at Patient Temp 61 mmHg (35-46) Arterial Blood pO2 at Patient Temp 144 mmHg (65-108) Arterial Blood HCO3 35 mmol/L (21-28) Arterial Blood Base Excess 7 mmol/L (-3-3) FiO2 50 Glucose (Fingerstick) 126 mg/dL (70-99) White Blood Count 8.1 x10^3/uL (4.0-11.0) Red Blood Count 3.75 x10^6/uL (3.50-5.40) Hemoglobin 12.2 g/dL (12.0-15.5) Hematocrit 36.8 % (36.0-47.0) Mean Corpuscular Volume 98 fL (79-100) Mean Corpuscular Hemoglobin 33 pg (25-35) Mean Corpuscular Hemoglobin Concent 33 g/dL (31-37) Red Cell Distribution Width 14.5 % (11.5-14.5) Platelet Count 202 x10^3/uL (140-400) Sodium Level 140 mmol/L (136-145) Potassium Level 5.3 mmol/L (3.5-5.1) Chloride Level 98 mmol/L (98-107) Carbon Dioxide Level 38 mmol/L (21-32) Anion Gap 4 (6-14) Blood Urea Nitrogen 29 mg/dL (7-20) Creatinine 0.9 mg/dL (0.6-1.0) Estimated GFR (Cockcroft-Gault) 62.8 Glucose Level 146 mg/dL (70-99) Calcium Level 8.1 mg/dL (8.5-10.1) Assessment and Plan Assessmemt and Plan Problems Medical Problems: (1) Acute and chronic respiratory failure ([id number]) Status: Acute (2) COPD exacerbation Status: Acute (3) Hypoxia Status: Acute Comment Review of Relevant I have reviewed the following items john (where applicable) has been applied. Labs Laboratory Tests Test 04/11/18 05:38 04/11/18 07:07 04/11/18 11:44 04/11/18 16:46 Urine Collection Type Unknown Urine Color Yellow Urine Clarity Clear Urine pH 6.0 Urine Specific [place] 1.015 Urine Protein >=300 mg/dL (NEG-TRACE) Urine Glucose (UA) Negative mg/dL (NEG) Urine Ketones (Stick) Negative mg/dL (NEG) Urine Blood Moderate (NEG) Urine Nitrite Negative (NEG) Urine Bilirubin Negative (NEG) Urine Urobilinogen Dipstick 0.2 mg/dL (0.2 mg/dL) Urine Leukocyte Esterase Negative (NEG) Urine RBC 3-5 /HPF (0-2) Urine WBC Occ /HPF (0-4) Urine Squamous Epithelial Cells Mod /LPF Urine Renal Epithelial Cells Occ /LPF Urine Bacteria Few /HPF (0-FEW) Urine Hyaline Casts Few /HPF Urine Mucus Mod /LPF Glucose (Fingerstick) 177 mg/dL (70-99) 209 mg/dL (70-99) 165 mg/dL (70-99) Nasal Screen MRSA (PCR) Positive (Negative) Test 04/11/18 21:08 04/12/18 07:47 04/12/18 10:50 04/12/18 12:21 Glucose (Fingerstick) 160 mg/dL (70-99) 134 mg/dL (70-99) 188 mg/dL (70-99) O2 Saturation 88 % (92-99) Arterial Blood pH 7.20 (7.35-7.45) Arterial Blood pCO2 at Patient Temp 117 mmHg (35-46) Arterial Blood pO2 at Patient Temp 59 mmHg (65-108) Arterial Blood HCO3 45 mmol/L (21-28) Arterial Blood Base Excess 11 mmol/L (-3-3) FiO2 40 Test 04/12/18 14:00 04/12/18 16:49 04/12/18 17:56 04/12/18 18:05 O2 Saturation 68 % (92-99) 99 % (92-99) Arterial Blood pH 7.20 (7.35-7.45) 7.37 (7.35-7.45) Arterial Blood pCO2 at Patient Temp 125 mmHg (35-46) 61 mmHg (35-46) Arterial Blood pO2 at Patient Temp < 42 mmHg (65-108) 144 mmHg (65-108) Arterial Blood HCO3 47 mmol/L (21-28) 35 mmol/L (21-28) Arterial Blood Base Excess 13 mmol/L (-3-3) 7 mmol/L (-3-3) FiO2 40 50 Glucose (Fingerstick) 126 mg/dL (70-99) White Blood Count 8.1 x10^3/uL (4.0-11.0) Red Blood Count 3.75 x10^6/uL (3.50-5.40) Hemoglobin 12.2 g/dL (12.0-15.5) Hematocrit 36.8 % (36.0-47.0) Mean Corpuscular Volume 98 fL (79-100) Mean Corpuscular Hemoglobin 33 pg (25-35) Mean Corpuscular Hemoglobin Concent 33 g/dL (31-37) Red Cell Distribution Width 14.5 % (11.5-14.5) Platelet Count 202 x10^3/uL (140-400) Sodium Level 140 mmol/L (136-145) Potassium Level 5.3 mmol/L (3.5-5.1) Chloride Level 98 mmol/L (98-107) Carbon Dioxide Level 38 mmol/L (21-32) Anion Gap 4 (6-14) Blood Urea Nitrogen 29 mg/dL (7-20) Creatinine 0.9 mg/dL (0.6-1.0) Estimated GFR (Cockcroft-Gault) 62.8 Glucose Level 146 mg/dL (70-99) Calcium Level 8.1 mg/dL (8.5-10.1) Laboratory Tests Test 04/12/18 07:47 04/12/18 10:50 04/12/18 12:21 04/12/18 14:00 Glucose (Fingerstick) 134 mg/dL (70-99) 188 mg/dL (70-99) O2 Saturation 88 % (92-99) 68 % (92-99) Arterial Blood pH 7.20 (7.35-7.45) 7.20 (7.35-7.45) Arterial Blood pCO2 at Patient Temp 117 mmHg (35-46) 125 mmHg (35-46) Arterial Blood pO2 at Patient Temp 59 mmHg (65-108) < 42 mmHg (65-108) Arterial Blood HCO3 45 mmol/L (21-28) 47 mmol/L (21-28) Arterial Blood Base Excess 11 mmol/L (-3-3) 13 mmol/L (-3-3) FiO2 40 40 Test 04/12/18 16:49 04/12/18 17:56 04/12/18 18:05 O2 Saturation 99 % (92-99) Arterial Blood pH 7.37 (7.35-7.45) Arterial Blood pCO2 at Patient Temp 61 mmHg (35-46) Arterial Blood pO2 at Patient Temp 144 mmHg (65-108) Arterial Blood HCO3 35 mmol/L (21-28) Arterial Blood Base Excess 7 mmol/L (-3-3) FiO2 50 Glucose (Fingerstick) 126 mg/dL (70-99) White Blood Count 8.1 x10^3/uL (4.0-11.0) Red Blood Count 3.75 x10^6/uL (3.50-5.40) Hemoglobin 12.2 g/dL (12.0-15.5) Hematocrit 36.8 % (36.0-47.0) Mean Corpuscular Volume 98 fL (79-100) Mean Corpuscular Hemoglobin 33 pg (25-35) Mean Corpuscular Hemoglobin Concent 33 g/dL (31-37) Red Cell Distribution Width 14.5 % (11.5-14.5) Platelet Count 202 x10^3/uL (140-400) Sodium Level 140 mmol/L (136-145) Potassium Level 5.3 mmol/L (3.5-5.1) Chloride Level 98 mmol/L (98-107) Carbon Dioxide Level 38 mmol/L (21-32) Anion Gap 4 (6-14) Blood Urea Nitrogen 29 mg/dL (7-20) Creatinine 0.9 mg/dL (0.6-1.0) Estimated GFR (Cockcroft-Gault) 62.8 Glucose Level 146 mg/dL (70-99) Calcium Level 8.1 mg/dL (8.5-10.1) Microbiology 04/10/18 Blood Culture - Preliminary, Resulted NO GROWTH AFTER 2 DAYS Medications Current Medications Albuterol/ Ipratropium (Duoneb) 3 ml 1X ONCE NEB Last administered on 10:55; Start 04/10/18 at 10:30; Stop 04/10/18 at 10:33; Status DC Dexamethasone Sodium Phosphate (Decadron) 10 mg 1X ONCE IV Last administered on 04/10/18 10:54; Start 04/10/18 at 10:30; Stop 04/10/18 at 10:33; Status DC Aspirin (Adriana Aspirin) 325 mg 1X ONCE PO Last administered on 04/10/18 10:53 ; Start 04/10/18 at 10:30; Stop 04/10/18 at 10:33; Status DC Ondansetron HCl (Zofran) 4 mg PRN Q8HRS PRN IV NAUSEA/VOMITING; Start 04/10/18 at 12:00; Stop 04/11/18 at 11:59; Status DC Fentanyl Citrate (Fentanyl 2ml Vial) 50 mcg PRN Q2HRS PRN IV PAIN Last administered on 04/11/18at 07:36; Start 04/10/18 at 12:00 Insulin Human Lispro (HumaLOG) 0-5 UNITS TIDWMEALS SQ Last administered on 04/11at 17:47; Start 04/10/18 at 12:00; Stop 04/12/18 at 18:01; Status DC Dextrose (Dextrose 50%-Water Syringe) 12.5 gm PRN Q15MIN PRN IV SEE COMMENTS; Start 04/10/18 at 12:00; Stop 04/12/18 at 18:01; Status DC Amlodipine Besylate (Norvasc) 5 mg DAILY PO Last administered on 04/12/18at 09: 10; Start 04/10/18 at 14:00 Aspirin (Children'S Aspirin) 81 mg DAILY PO Last administered on 04/12/18 09: 10; Start 04/10/18 at 14:00 Atorvastatin Calcium (Lipitor) 20 mg HS PO Last administered on 04/11/18at 20:42 ; Start 04/10/18 at 21:00 Azathioprine (Imuran) 50 mg HS PO Last administered on 04/11/18 20:42; Start 04/10/18 at 21:00 Azathioprine (Imuran) 100 mg DAILY08 PO Last administered on 04/12/18 09:09; Start 04/10/18 at 14:00 Azithromycin (Zithromax) 250 mg DAILY PO Last administered on 04/12/18 09:09; Start 04/10/18 at 14:00 Calcium Carbonate/ Glycine (Tums) 500 mg PRN Q6HRS PRN PO INDIGESTION; Start at 13:45 Citalopram Hydrobromide (CeleXA) 20 mg HS PO Last administered on 04/11/18 20: 41; Start 04/10/18 at 21:00 Docusate Sodium (Colace) 100 mg PRN BID PRN PO HARD STOOLS; Start 04/10/18 at 13:45 Ergocalciferol (Vitamin D2) 50,000 unit QSU PO Last administered on 04/10/18 17:44; Start 04/10/18 at 16:00 Fluticasone Propionate (Flonase) 1 spray BID NS Last administered on 04/12/18 09:10; Start 04/10/18 at 21:00 Gabapentin (Neurontin) 300 mg BID PO Last administered on 04/12/18 09:09; Start 04/10/18 at 14:00 Levothyroxine Sodium (Synthroid) 100 mcg DAILY06 PO Last administered on 05:41; Start 04/11/18 at 06:00 Prednisone (Prednisone) 10 mg DAILY PO Last administered on 04/12/18 09:10; Start 04/10/18 at 14:00 Albuterol Sulfate (Ventolin Neb Soln) 2.5 mg RTQID NEB Last administered on 19:15; Start 04/11/18 at 08:00 Albuterol Sulfate (Ventolin Neb Soln) 2.5 mg PRN Q4HRS PRN NEB SHORTNESS OF BREATH Last administered on 04/12/18 09:41; Start 04/11/18 at 02:15 Acetaminophen/ Hydrocodone Bitart (Lortab 5/325) 1 tab 1X ONCE PO Last administered on 04/11/18 10:53; Start 04/11/18 at 11:00; Stop 04/11/18 at 11:01 ; Status DC Lactobacillus Rhamnosus (Culturelle) 1 cap BID PO Last administered on 09:09; Start 04/11/18 at 21:00; Stop 04/12/18 at 14:04; Status DC Alprazolam (Xanax) 0.25 mg PRN TID PRN PO ANXIETY Last administered on 13:04; Start 04/11/18 at 14:00 Acetaminophen/ Hydrocodone Bitart (Lortab 7.5/325) 1 tab PRN QID PRN PO PAIN Last administered on 04/12/18 04:00; Start 04/11/18 at 14:00 Montelukast Sodium (Singulair) 10 mg QHS PO Last administered on 04/11/18 20: 41; Start 04/11/18 at 21:00 Ropinirole HCl (Requip) 0.5 mg BID PO Last administered on 04/12/18 09:10; Start 04/11/18 at 14:00 Ondansetron HCl (Zofran) 4 mg PRN Q6HRS PRN IV NAUSEA/VOMITING, 1ST CHOICE Last administered on 04/12/18 13:04; Start 04/12/18 at 12:45 Prochlorperazine Edisylate (Compazine) 10 mg PRN Q6HRS PRN IV NAUSEA/VOMITING, 2ND CHOICE; Start 04/12/18 at 12:45 Heparin Sodium (Porcine) (Heparin Sodium) 5,000 unit Q12HR SQ ; Start 04/12/18 at 21:00 Propofol 100 ml @ As Directed STK-MED ONCE IV ; Start 04/12/18 at 14:27; Stop 04/12/18 at 14:28; Status DC Midazolam HCl (Versed) 5 mg STK-MED ONCE .ROUTE ; Start 04/12/18 at 14:27; Stop 04/12/18 at 14:28; Status DC Succinylcholine Chloride (Anectine) 100 mg 1X ONCE IV Last administered on 14:59; Start 04/12/18 at 14:45; Stop 04/12/18 at 14:47; Status DC Fentanyl Citrate 30 ml @ 0 mls/hr CONT PRN IV SEE PROTOCOL Last administered on 04/12/18at 16:24; Start 04/12/18 at 14:45 Propofol 100 ml @ 0 mls/hr CONT PRN IV SEE PROTOCOL Last administered on at 15:01; Start 04/12/18 at 14:45 Chlorhexidine Gluconate (Peridex) 15 ml BID MM ; Start 04/12/18 at 21:00 Midazolam HCl 100 ml @ 0 mls/hr CONT PRN IV SEE PROTOCOL Last administered on at 15:17; Start 04/12/18 at 14:45 Insulin Human Lispro (HumaLOG) 0-5 UNITS TIDWMEALS SQ ; Start 04/13/18 at 08:00 Dextrose (Dextrose 50%-Water Syringe) 12.5 gm PRN Q15MIN PRN IV SEE COMMENTS; Start 04/12/18 at 18:00 Epinephrine HCl 4 mg/Sodium Chloride 254 ml @ 3.81 mls/hr CONT PRN IV SEE I/O RECORD; Start 04/12/18 at 20:45 Norepinephrine Bitartrate 250 ml @ 1.875 mls/ hr CONT PRN IV SEE I/O RECORD; Start 04/12/18 at 21:00 Active Scripts Active Azithromycin Tablet (Azithromycin) 250 Mg Tablet 250 Mg PO DAILY Prednisone (Prednisone) 10 Mg Tablet 10 Mg PO UD Take 4 tablets by mouth daily for 3 days, then take 3 tablets by mouth daily for 3 days, then take 2 tablet by mouth daily for 3 days, then take 1 tablet by mouth daily x 3 days, stop. Ambien (Zolpidem Tartrate) 5 Mg Tablet 5 Mg PO PRN QHS PRN Amox Tr-K Clv 875-125 Mg Tab (Amoxicillin/Potassium Clav) 1 Each Tablet 1 Tab PO BID Spiriva (Tiotropium Millen) 18 Mcg Cap.w.dev 1 Cap IH DAILY Advair 500-50 Diskus (Fluticasone/Salmeterol) 1 Each Disk.w.dev 1 Puff IH BID Reported Cetirizine Hcl 10 Mg Tablet 1 Tab PO DAILY PRN Ropinirole Hcl 1 Mg Tablet 1 Mg PO BID Albuterol Sulfate Conc Neb Soln (Albuterol Sulfate) 2.5 Mg/0.5 Ml Vial.neb 2.5 Mg NEB QID Singulair Tablet (Montelukast Sodium) 10 Mg Tablet 10 Mg PO HS Ranitidine Hcl 300 Mg Tablet 300 Mg PO BID Tums (Calcium Carbonate) 200 Mg Tab.chew 400 Mg PO PRN Q6HRS PRN Vitamin D2 (Ergocalciferol (Vitamin D2)) 50,000 Unit Capsule 50,000 Unit PO QSU Multivitamins (Multivitamin) 1 Each Capsule 1 Each PO DAILY Lumigan (Bimatoprost) 2.5 Ml Drops 1 Drop EACHEYE QHS Melatonin 3 Mg Tablet 10 Mg PO QHS Atorvastatin Calcium 20 Mg Tablet 20 Mg PO HS Amlodipine Besylate 5 Mg Tablet 1 Tab PO DAILY Levothyroxine Sodium 100 Mcg Tablet 100 Mcg PO DAILY06 Fluticasone Propionate Nasal [place] (Fluticasone Propionate) 16 Gm [place].susp 2 [place] NS BID Azathioprine 50 Mg Tablet 50 Mg PO HS Docusate Sodium 100 Mg Capsule 100 Mg PO PRN BID Alprazolam 0.5 Mg Tablet 0.5 Mg PO TID Gabapentin (Gabapentin) 300 Mg Capsule 300 Mg PO BID Albuterol Sulfate Hfa Inhaler (Albuterol Sulfate) 8.5 Gm Hfa.aer.ad 8.5 Gm IH PRN PRN Aspirin 81 Mg Tab.chew 81 Mg PO DAILY Hydrocodone-Apap 7.5-325 (Hydrocodone Bit/Acetaminophen) 1 Each Tablet 1-2 Each PO PRN QID PRN Celexa (Citalopram Hydrobromide) 10 Mg Tablet 20 Mg PO HS Azathioprine 50 Mg Tablet 100 Mg PO DAILY08 Alendronate Sodium 70 Mg Tablet 70 Mg PO QSU Vitals/I & O Vital Sign - Last 24 Hours 04/11/18 04/11/18 04/11/18 04/11/18 21:42 22:29 23:00 23:28 Temp 98.5 98.5 Pulse 84 Resp 24 B/P (MAP) 133/64 (87) Pulse Ox 92 92 92 O2 Delivery BiPAP/CPAP BiPAP/CPAP BiPAP/CPAP O2 Flow Rate 5.0 04/12/18 04/12/18 04/12/18 04/12/18 00:00 00:00 02:55 03:00 Temp 98.2 98.2 Pulse 79 Resp 23 B/P (MAP) 122/60 (80) Pulse Ox 92 90 O2 Delivery BiPAP/CPAP BiPAP/CPAP BiPAP/CPAP O2 Flow Rate 8.0 04/12/18 04/12/18 04/12/18 04/12/18 04:00 04:00 05:00 05:27 O2 Delivery BiPAP/CPAP BiPAP/CPAP BiPAP/CPAP O2 Flow Rate 8.0 04/12/18 04/12/18 04/12/18 04/12/18 07:00 07:14 08:00 08:00 Temp 97.5 97.5 Pulse 93 Resp 25 B/P (MAP) 163/80 (107) Pulse Ox 88 90 O2 Delivery BiPAP/CPAP BiPAP/CPAP Venturi Mask O2 Flow Rate 5.0 5.0 04/12/18 04/12/18 04/12/18 04/12/18 09:10 09:42 11:00 11:20 Temp 97.6 97.6 Pulse 93 109 Resp 28 B/P (MAP) 163/80 131/75 (93) Pulse Ox 95 89 O2 Delivery Oxy mask BiPAP/CPAP Bi-pap O2 Flow Rate 8.0 04/12/18 04/12/18 04/12/18 04/12/18 11:20 11:25 12:00 14:30 Pulse 114 114 Resp 28 28 B/P (MAP) 159/86 (110) 143/82 (102) Pulse Ox 90 90 91 O2 Delivery BiPAP/CPAP BiPAP/CPAP BiPAP/CPAP O2 Flow Rate 8.0 04/12/18 04/12/18 04/12/18 04/12/18 14:35 14:50 15:00 15:05 B/P (MAP) 102/63 (76) 95/63 (74) 73/45 (54) 66/47 (53) 04/12/18 04/12/18 04/12/18 04/12/18 15:10 15:15 16:00 16:00 B/P (MAP) 92/60 (71) Pulse Ox 100 O2 Delivery Ventilator Mechanical Ventilator O2 Flow Rate 8.0 04/12/18 04/12/18 04/12/18 04/12/18 16:24 16:55 17:00 17:10 Pulse 112 Resp 20 20 20 B/P (MAP) Pulse Ox 100 100 98 100 O2 Delivery Ventilator Ventilator Ventilator Ventilator 04/12/18 04/12/18 18:08 19:15 Pulse 114 Resp 20 B/P (MAP) 107/65 (79) Pulse Ox 99 99 O2 Delivery Ventilator Ventilator Intake and Output 04/11/18 04/11/18 04/12/18 15:00 23:00 07:00 Intake Total 480 ml 150 ml 400 ml Output Total 0 ml Balance 480 ml 150 ml 400 ml ASHLI AWAN MD Apr 12, 2018 21:38
--- NOTE | 2018-04-12 22:00 | PDOC3 ---
Discharge Summary Visit Information Date of Admission: Apr 10, 2018 Date of Discharge: Apr 12, 2018 Admitting Diagnosis: acute on chonic respiratory failure Final Diagnosis Problems Medical Problems: (1) Acute and chronic respiratory failure ([id number]) Status: Acute (2) COPD exacerbation Status: Acute (3) Hypoxia Status: Acute Brief Hospital Course Allergies Allergies Coded Allergies Type Severity Reaction Last Updated Verified I S O L A T I O N *CONTACT* Allergy Unknown 01/19/17 Yes No Known Medication Allergies Allergy Unknown 06/02/16 Yes Vital Signs Vital Signs Date Time Temp Pulse Resp B/P (MAP) Pulse Ox O2 Delivery O2 Flow Rate FiO2 04/12/18 19:15 99 Ventilator 04/12/18 18:08 114 20 107/65 (79) 04/12/18 16:00 8.0 04/12/18 11:00 97.6 97.6 absent breath sounds absent cardiac sounds negative gag negative pupillary reflex BP 0/0 HR 0 RR 0 Lab Results Laboratory Tests Test 04/11/18 05:38 04/11/18 07:07 04/11/18 11:44 04/11/18 16:46 Urine Collection Type Unknown Urine Color Yellow Urine Clarity Clear Urine pH 6.0 Urine Specific [place] 1.015 Urine Protein >=300 mg/dL (NEG-TRACE) Urine Glucose (UA) Negative mg/dL (NEG) Urine Ketones (Stick) Negative mg/dL (NEG) Urine Blood Moderate (NEG) Urine Nitrite Negative (NEG) Urine Bilirubin Negative (NEG) Urine Urobilinogen Dipstick 0.2 mg/dL (0.2 mg/dL) Urine Leukocyte Esterase Negative (NEG) Urine RBC 3-5 /HPF (0-2) Urine WBC Occ /HPF (0-4) Urine Squamous Epithelial Cells Mod /LPF Urine Renal Epithelial Cells Occ /LPF Urine Bacteria Few /HPF (0-FEW) Urine Hyaline Casts Few /HPF Urine Mucus Mod /LPF Glucose (Fingerstick) 177 mg/dL (70-99) 209 mg/dL (70-99) 165 mg/dL (70-99) Nasal Screen MRSA (PCR) Positive (Negative) Test 04/11/18 21:08 04/12/18 07:47 04/12/18 10:50 04/12/18 12:21 Glucose (Fingerstick) 160 mg/dL (70-99) 134 mg/dL (70-99) 188 mg/dL (70-99) O2 Saturation 88 % (92-99) Arterial Blood pH 7.20 (7.35-7.45) Arterial Blood pCO2 at Patient Temp 117 mmHg (35-46) Arterial Blood pO2 at Patient Temp 59 mmHg (65-108) Arterial Blood HCO3 45 mmol/L (21-28) Arterial Blood Base Excess 11 mmol/L (-3-3) FiO2 40 Test 04/12/18 14:00 04/12/18 16:49 04/12/18 17:56 04/12/18 18:05 O2 Saturation 68 % (92-99) 99 % (92-99) Arterial Blood pH 7.20 (7.35-7.45) 7.37 (7.35-7.45) Arterial Blood pCO2 at Patient Temp 125 mmHg (35-46) 61 mmHg (35-46) Arterial Blood pO2 at Patient Temp < 42 mmHg (65-108) 144 mmHg (65-108) Arterial Blood HCO3 47 mmol/L (21-28) 35 mmol/L (21-28) Arterial Blood Base Excess 13 mmol/L (-3-3) 7 mmol/L (-3-3) FiO2 40 50 Glucose (Fingerstick) 126 mg/dL (70-99) White Blood Count 8.1 x10^3/uL (4.0-11.0) Red Blood Count 3.75 x10^6/uL (3.50-5.40) Hemoglobin 12.2 g/dL (12.0-15.5) Hematocrit 36.8 % (36.0-47.0) Mean Corpuscular Volume 98 fL (79-100) Mean Corpuscular Hemoglobin 33 pg (25-35) Mean Corpuscular Hemoglobin Concent 33 g/dL (31-37) Red Cell Distribution Width 14.5 % (11.5-14.5) Platelet Count 202 x10^3/uL (140-400) Sodium Level 140 mmol/L (136-145) Potassium Level 5.3 mmol/L (3.5-5.1) Chloride Level 98 mmol/L (98-107) Carbon Dioxide Level 38 mmol/L (21-32) Anion Gap 4 (6-14) Blood Urea Nitrogen 29 mg/dL (7-20) Creatinine 0.9 mg/dL (0.6-1.0) Estimated GFR (Cockcroft-Gault) 62.8 Glucose Level 146 mg/dL (70-99) Calcium Level 8.1 mg/dL (8.5-10.1) Laboratory Tests Test 04/12/18 07:47 04/12/18 10:50 04/12/18 12:21 04/12/18 14:00 Glucose (Fingerstick) 134 mg/dL (70-99) 188 mg/dL (70-99) O2 Saturation 88 % (92-99) 68 % (92-99) Arterial Blood pH 7.20 (7.35-7.45) 7.20 (7.35-7.45) Arterial Blood pCO2 at Patient Temp 117 mmHg (35-46) 125 mmHg (35-46) Arterial Blood pO2 at Patient Temp 59 mmHg (65-108) < 42 mmHg (65-108) Arterial Blood HCO3 45 mmol/L (21-28) 47 mmol/L (21-28) Arterial Blood Base Excess 11 mmol/L (-3-3) 13 mmol/L (-3-3) FiO2 40 40 Test 04/12/18 16:49 04/12/18 17:56 04/12/18 18:05 O2 Saturation 99 % (92-99) Arterial Blood pH 7.37 (7.35-7.45) Arterial Blood pCO2 at Patient Temp 61 mmHg (35-46) Arterial Blood pO2 at Patient Temp 144 mmHg (65-108) Arterial Blood HCO3 35 mmol/L (21-28) Arterial Blood Base Excess 7 mmol/L (-3-3) FiO2 50 Glucose (Fingerstick) 126 mg/dL (70-99) White Blood Count 8.1 x10^3/uL (4.0-11.0) Red Blood Count 3.75 x10^6/uL (3.50-5.40) Hemoglobin 12.2 g/dL (12.0-15.5) Hematocrit 36.8 % (36.0-47.0) Mean Corpuscular Volume 98 fL (79-100) Mean Corpuscular Hemoglobin 33 pg (25-35) Mean Corpuscular Hemoglobin Concent 33 g/dL (31-37) Red Cell Distribution Width 14.5 % (11.5-14.5) Platelet Count 202 x10^3/uL (140-400) Sodium Level 140 mmol/L (136-145) Potassium Level 5.3 mmol/L (3.5-5.1) Chloride Level 98 mmol/L (98-107) Carbon Dioxide Level 38 mmol/L (21-32) Anion Gap 4 (6-14) Blood Urea Nitrogen 29 mg/dL (7-20) Creatinine 0.9 mg/dL (0.6-1.0) Estimated GFR (Cockcroft-Gault) 62.8 Glucose Level 146 mg/dL (70-99) Calcium Level 8.1 mg/dL (8.5-10.1) Brief Hospital Course Ms. Avalos is a 67 old female who presented with acute respiratory distress and diagnosed with acute on chronic hypoxemic respiratory failure. She was started on antibiotics steroids and supportive measures from the pulmonology stand point of view. Patient seen in consultation by Dr Sanchez who recommended transitioning to the ICU for higher level of care earlier on the day of her passing. Patient was intubated on 04/12/2018 and throughout the afternoon started to deteriorate, her urinary output decreased and I received the first distress call minutes before code blue was announced. Patient had 26 minutes of resuscitative efforts with transient regain of pulse for less than aminute. Patient was continued on ACLS protocol unfortunately the patient was very difficult to bag her abdomen got distended, mottling ensued and her pupils were fixed and dilated, there was no gag reflex, no pupillary reflex, and despite all the efforts she succumbed to the underlying pulmonary disease that brought her to the hospital She was pronounced at 2057. Discharge Information Condition at Discharge: / Disposition/Orders: Scheduled Albuterol Sulfate (Albuterol Sulfate Conc Neb Soln) 2.5 Mg/0.5 Ml Vial.neb, 2.5 MG NEB QID for FOR ASTHMA, Ref 0 (Reported) Entered as Reported by: PRACHI LUCIANO on 11/16/141 Alendronate Sodium (Alendronate Sodium) 70 Mg Tablet, 70 MG PO QSU, (Reported) Entered as Reported by: WON CARY on 05/03/13 0232 Alprazolam (Alprazolam) 0.5 Mg Tablet, 0.5 MG PO TID, (Reported) Entered as Reported by: WON CARY on 05/03/13 0310 Last Action: Continued on 04/11/18 1358 by MELITON MARTE MD Amlodipine Besylate (Amlodipine Besylate) 5 Mg Tablet, 1 TAB PO DAILY, #30 Ref 5 (Reported) Entered as Reported by: Adolfo Metz on 04/21/142230 Last Action: Continued on 04/10/18 1341 by NIAGail CASTRADHA Amoxicillin/Potassium Clav (Amox Tr-K Clv 875-125 Mg Tab) 1 Each Tablet, 1 TAB PO BID, #10 Prescribed by: CHEYENNE CRUM on 01/25/17 0851 Last Action: HELD on 04/11/18 1356 by MELITON MARTE MD Aspirin (Aspirin) 81 Mg Tab.chew, 81 MG PO DAILY, (Reported) Entered as Reported by: WON CARY on 05/03/13 0249 Last Action: Continued on 04/10/18 1341 by NIAGail FIELDS Atorvastatin Calcium (Atorvastatin Calcium) 20 Mg Tablet, 20 MG PO HS for FOR CHOLESTEROL, #30 Ref 0 (Reported) Entered as Reported by: Adolfo Metz on 04/21/142237 Last Action: Continued on 04/10/18 1341 by NIAL DIAMOND Azathioprine (Azathioprine) 50 Mg Tablet, 100 MG PO DAILY08, (Reported) Entered as Reported by: WON CARY on 05/03/13 0232 Last Action: Continued on 04/10/18 1342 by NIAL CASTLE Azathioprine (Azathioprine) 50 Mg Tablet, 50 MG PO HS, #60 Ref 3 (Reported) Entered as Reported by: Adolfo Metz on 04/21/144 Last Action: Continued on 04/10/18 1342 by NIAL DIAMOND Azithromycin (Azithromycin Tablet) 250 Mg Tablet, 250 MG PO DAILY, #4 Prescribed by: CHEYENNE CRUM on 05/16/17 1112 Last Action: Continued on 04/10/18 134 by NIAL CASTLE Bimatoprost (Lumigan) 2.5 Ml Drops, 1 DROP EACHEYE QHS, #7.5 Ref 3 (Reported) Entered as Reported by: Adolfo Metz on 04/21/142237 Citalopram Hydrobromide (Celexa) 10 Mg Tablet, 20 MG PO HS, (Reported) Entered as Reported by: WON CARY on 05/03/13 0240 Last Action: Continued on 04/10/18 1342 by NIAL CASTLE Docusate Sodium (Docusate Sodium) 100 Mg Capsule, 100 MG PO PRN BID, (Reported) Entered as Reported by: WON CARY on 05/03/13 0322 Last Action: Continued on 04/10/18 1342 by NIAL CASTLE Ergocalciferol (Vitamin D2) (Vitamin D2) 50,000 Unit Capsule, 50,000 UNIT PO QSU , (Reported) Entered as Reported by: PRACHI LUCIANO on 11/16/142213 Last Action: Continued on 04/10/18 1342 by NIAL CASTLE Fluticasone Propionate (Fluticasone Propionate Nasal [place]) 16 Gm [place].susp, 2 SPRAY NS BID, #1 Ref 3 (Reported) Entered as Reported by: Adolfo Metz on 04/21/142217 Last Action: Continued on 04/10/18 1342 by NIAL CASTLE Fluticasone/Salmeterol (Advair 500-50 Diskus) 1 Each Disk.w.dev, 1 PUFF IH BID, #1 Ref 5 Prescribed by: CHEYENNE CRUM on 01/25/17 0851 Gabapentin (Gabapentin ) 300 Mg Capsule, 300 MG PO BID, (Reported) Entered as Reported by: WON CARY on 05/03/13248 Last Action: Continued on 04/10/18 1342 by NIAL CASTLE Levothyroxine Sodium (Levothyroxine Sodium) 100 Mcg Tablet, 100 MCG PO DAILY06, #30 Ref 5 (Reported) Entered as Reported by: Adolfo eMtz on 04/21/142230 Last Action: Continued on 04/10/18 1342 by NIAL CASTLE Melatonin (Melatonin) 3 Mg Tablet, 10 MG PO QHS, #30 Ref 2 (Reported) Entered as Reported by: Adolfo Metz on 04/21/142237 Last Action: HELD on 04/11/18 1356 by MELITON MARTE MD Montelukast Sodium (Singulair Tablet) 10 Mg Tablet, 10 MG PO HS for FOR ASTHMA, #30 Ref 0 (Reported) Entered as Reported by: PRACHI LUCIANO on 9/25/15 2221 Last Action: Converted on 04/11/18 1358 by MELITON MARTE MD Multivitamin (Multivitamins) 1 Each Capsule, 1 EACH PO DAILY, (Reported) Entered as Reported by: Adolfo Metz on 04/21/148 Prednisone (Prednisone ) 10 Mg Tablet, 10 MG PO UD for PREDNISONE TAPER, #30 Ref 0 Take 4 tablets by mouth daily for 3 days, then take 3 tablets by mouth daily for 3 days, then take 2 tablet by mouth daily for 3 days, then take 1 tablet by mouth daily x 3 days, stop. Prescribed by: CHEYENNE CRUM on 05/16/17 1112 Last Action: Continued on 04/10/18 1342 by BERYL FIELDS Ranitidine Hcl (Ranitidine Hcl) 300 Mg Tablet, 300 MG PO BID, (Reported) Entered as Reported by: PRACHI LUCIANO on 11/16/14 2214 Ropinirole Hcl (Ropinirole Hcl) 1 Mg Tablet, 1 MG PO BID, (Reported) Entered as Reported by: LUIS ALBERTO GLEASON on 02/24/16 2245 Last Action: Converted on 04/11/18 135 by MELITON MARTE MD Tiotropium [place] (Spiriva) 18 Mcg Cap.w.dev, 1 CAP IH DAILY, #30 Ref 3 Prescribed by: CHEYENNE CRUM on 01/25/17 0851 Scheduled PRN Albuterol Sulfate (Albuterol Sulfate Hfa Inhaler) 8.5 Gm Hfa.aer.ad, 8.5 GM IH PRN PRN for SHORTNESS OF BREATH, (Reported) Entered as Reported by: WON CARY on 05/03/13 0249 Calcium Carbonate (Tums) 200 Mg Tab.chew, 400 MG PO PRN Q6HRS PRN for INDIGESTION, (Reported) Entered as Reported by: PRACHI LUCIANO on 11/16/14 2214 Last Action: Continued on 04/10/18 1342 by BERYL FIELDS Cetirizine Hcl (Cetirizine Hcl) 10 Mg Tablet, 1 TAB PO DAILY PRN for ALLERGIES, #30 Ref 5 (Reported) Entered as Reported by: ADIS MUIR on 08/05/17 1047 Last Action: HELD on 04/11/18 135 by MELITON MARTE MD Hydrocodone Bit/Acetaminophen (Hydrocodone-Apap 7.5-325 ) 1 Each Tablet, 1-2 EACH PO PRN QID PRN for PAIN, (Reported) Entered as Reported by: WON CARY on 05/03/13 0240 Last Action: Continued on 04/11/18 1358 by MELITON MARTE MD Zolpidem Tartrate (Ambien) 5 Mg Tablet, 5 MG PO PRN QHS PRN for INSOMNIA, MAY REPEAT IN 1HR, #30 Prescribed by: CHEYENNE CRUM on 01/25/17 0851 Last Action: HELD on 04/11/18 1356 by MD EMPERATRIZ LOCKHART HECTOR M MD Apr 12, 2018 21:59
[2018-04-13] MEDS ORDERED: INSULIN LISPRO 300 UNITS/3 ML INSULN.PEN. SQ SCH (08:00)
== END 2018-04-12 22:30 | disposition expired | DRG 208 ==
LOC: ER 10:19 → 6 SOUTH 11:48 → 1 WEST ICU 04-12 11:38
PROVIDERS: ADMIT Internal Medicine; ATTEND Internal Medicine
PROC: 5A09357 Assistance with Respiratory Ventilation, Less than 24 Consecutive Hours, Continuous Positive Airway Pressure (ICD-10-PCS; 2018-04-10)
PROC: 5A09357 Assistance with Respiratory Ventilation, Less than 24 Consecutive Hours, Continuous Positive Airway Pressure (ICD-10-PCS; 2018-04-11)
PROC: 0BH17EZ Insertion of Endotracheal Airway into Trachea, Via Natural or Artificial Opening (ICD-10-PCS; principal; 2018-04-12)
PROC: 5A1935Z Respiratory Ventilation, Less than 24 Consecutive Hours (ICD-10-PCS; 2018-04-12)
PROC: 5A09357 Assistance with Respiratory Ventilation, Less than 24 Consecutive Hours, Continuous Positive Airway Pressure (ICD-10-PCS; 2018-04-12)
DX: J96.21 Acute and chronic respiratory failure with hypoxia (principal); J18.9 Pneumonia, unspecified organism; J44.1 Chronic obstructive pulmonary disease with (acute) exacerbation; E66.2 Morbid (severe) obesity with alveolar hypoventilation; G93.40 Encephalopathy, unspecified; J44.0 Chronic obstructive pulmonary disease with (acute) lower respiratory infection; J98.11 Atelectasis; M35.1 Other overlap syndromes; Z68.41 Body mass index [BMI] 40.0-44.9, adult; J96.22 Acute and chronic respiratory failure with hypercapnia; I46.9 Cardiac arrest, cause unspecified; E11.9 Type 2 diabetes mellitus without complications; I10 Essential (primary) hypertension; M19.90 Unspecified osteoarthritis, unspecified site; J20.9 Acute bronchitis, unspecified; F41.9 Anxiety disorder, unspecified; M81.0 Age-related osteoporosis without current pathological fracture; F32.9 Major depressive disorder, single episode, unspecified; E03.9 Hypothyroidism, unspecified; Z79.899 Other long term (current) drug therapy; Z96.649 Presence of unspecified artificial hip joint; F17.200 Nicotine dependence, unspecified, uncomplicated; Z79.51 Long term (current) use of inhaled steroids; Z79.82 Long term (current) use of aspirin; Z82.49 Family history of ischemic heart disease and other diseases of the circulatory system; Z90.49 Acquired absence of other specified parts of digestive tract; Z90.710 Acquired absence of both cervix and uterus; Z91.19 Patient's noncompliance with other medical treatment and regimen; Z99.81 Dependence on supplemental oxygen
CPT/HCPCS: 36415; 36600; 71045; 80048; 80053; 81001; 82553; 82805; 82962; 83605; 83735; 83880; 84484; 85007; 85025; 85027; 85610; 85730; 87040; 87641; 87804; 93005; 94002; 94640; 94660; 94760; 96374; J0171; J0330; J1100; J1815; J2250; J2405; J2704; J3010; J3475; J3490; J7500; J7512; J7613; J7620; Q0144; 99291-25